=== PATIENT | female | born 1940 | race Caucasian/White ===

== ENCOUNTER 2020-04-28 02:24 | Outpatient (CLI) | payer MEDICARE, SELFPAY ==
[2020-04-28 18:24] LABS: SARS-CoV-2 RNA PCR Negative
== END 2020-04-28 02:25 | disposition home or self-care (01) ==
LOC: ANHCOVIDDT 02:24
PROVIDERS: PCP Nurse Practitioner Adult Health; Visit Provider Internal Medicine Gastroenterology
DX: Z01.812 Encounter for preprocedural laboratory examination (principal); Z20.828 Contact with and (suspected) exposure to other viral communicable diseases
CPT/HCPCS: 87635; C9803; U0003

== ENCOUNTER 2020-04-30 00:27 | Day surgery (SDC) | payer MEDICARE, SELFPAY ==
[2020-04-23 11:12] VITALS: BMI 22.9
[2020-04-30 08:18] VITALS: BP 169/91; PULSE 77; RESP 18; TEMP 36.7; O2SAT 98
[2020-04-30] MEDS: LACTATED RINGERS 1,000 ML 150 ML IV CONT (08:37)
--- NOTE | 2020-04-30 09:07 | PM.HPGS ---
History of Present Illness History of Present Illness Consent: Risks, benefits, and alternatives have been discussed and questions answered. Patient agrees to proceed with procedure. Chief complaint: Dysphagia Narrative: Rosanne Hilario is a 79 year old female with dysphagia for solid food for the past 2 months [facility] Social History Social History Smoking status: Never smoker Alcohol intake: current Drinks per week: 1 Alcohol use details: BEER Substance use: never Substance use type: does not use Living arrangements: with family Spiritual care concerns: No Meds Home Medications and Allergies Home Medications Medication Instructions Recorded Confirmed Type ascorbic acid (vitamin C) [Vitamin 500 mg PO DAILY 04/23/20 04/23/20 History C] aspirin [Adult Low Dose Aspirin] 81 mg PO DAILY 04/23/20 04/23/20 History benazepril 40 mg PO DAILY 04/23/20 04/23/20 History calcium carbonate [Calcium 600] 600 mg PO DAILY 04/23/20 04/23/20 History clonazepam 0.5 mg PO DAILY 04/23/20 04/23/20 History clopidogrel 75 mg PO DAILY 04/23/20 04/23/20 History escitalopram oxalate 10 mg PO DAILY 04/23/20 04/23/20 History ferrous sulfate 140 mg PO TID 04/23/20 04/23/20 History pravastatin 20 mg PO DAILY 04/23/20 04/23/20 History Allergies Allergy/AdvReac Type Severity Reaction Status Date / Time No Known Allergies Allergy Verified 03/14/16 11:13 Vital Signs Vital Signs - 24 hr 04/30/20 08:18 Temperature 36.7 C Pulse Rate 77 Respiratory Rate 18 Blood Pressure 169/91 H Pulse Oximetry 98 Exam Const: General: alert Orientation/consciousness: patient oriented x3 Resp: Auscultation: clear to auscultation bilaterally Cardio: Rhythm: regular rhythm GI: GI Palp: Yes Soft to palpation and No Tenderness to palpation present (GI) Neuro: General: patient oriented x3 Assessment and Plan Assessment and plan (1) Dysphagia: Code(s): R13.10 - Dysphagia, unspecified Status: Acute Assessment and Plan: EGD with possible biopsy or dilatation or cautery.
--- NOTE | 2020-04-30 09:20 | WPDANESEPPF ---
Anes - Initial Pre Proc Eval Procedure: Operation Date: 04/30/20 09:30 Proposed Procedures p Esophagogastroduodenoscopy - Alberto Turpin MD Date/Time: 04/30/20 09:20 Surgeon: Alberto Turpin MD Pre Op Diagnosis: Dysphagia Patient Data Age: 79 Gender: F Height: 5 ft 2 in Weight: 56.3 kg Last Vital Signs Temp 98.0 F 04/30/20 08:18 Pulse 77 04/30/20 08:18 Resp 18 04/30/20 08:18 BP 169/91 H 04/30/20 08:18 Pulse Ox 98 04/30/20 08:18 Allergies Allergy/AdvReac Type Severity Reaction Status Date / Time No Known Allergies Allergy Verified 03/14/16 11:13 Home Medications Medication Instructions Recorded Confirmed Type ascorbic acid (vitamin C) [Vitamin 500 mg PO DAILY 04/23/20 04/23/20 History C] aspirin [Adult Low Dose Aspirin] 81 mg PO DAILY 04/23/20 04/23/20 History benazepril 40 mg PO DAILY 04/23/20 04/23/20 History calcium carbonate [Calcium 600] 600 mg PO DAILY 04/23/20 04/23/20 History clonazepam 0.5 mg PO DAILY 04/23/20 04/23/20 History clopidogrel 75 mg PO DAILY 04/23/20 04/23/20 History escitalopram oxalate 10 mg PO DAILY 04/23/20 04/23/20 History ferrous sulfate 140 mg PO TID 04/23/20 04/23/20 History pravastatin 20 mg PO DAILY 04/23/20 04/23/20 History Patient hx anesthesia problems: none Family hx anesthesia problems: none [facility] Past Medical History Medical History (Updated 04/30/20 @ 09:19 by Alex Stout MD) Anxiety Hyperlipidemia Hypertension Social History Social History Smoking status: Never smoker Alcohol intake: current Drinks per week: 1 Alcohol use details: BEER Substance use: never Substance use type: does not use Living arrangements: with family Spiritual care concerns: No Anes - Eval Final PreProcedure Day of Procedure 04/30/20 09:20 Patient weight: normal Heart: regular rate and rhythm Lungs: clear to auscultation Airway: Mallampati scale class II Neurological: alert and oriented Last oral intake: >/= 8 hours ASA classification: III Emergent: no Anesthetic plan: proceed Anesthesia type and monitoring: general GIVS and standard monitoring Informed Consent: The patient's anesthetic plan and its attendant risks and benefits were discussed with the patient/family/POA. Questions were solicited and answers provided to the satisfaction of the patient/family/POA.
[2020-04-30 10:13] VITALS: BP 139/77; PULSE 66; RESP 26; O2SAT 98
[2020-04-30 10:23] VITALS: BP 120/74; PULSE 62; RESP 17; O2SAT 100
[2020-04-30 10:33] VITALS: BP 126/76; PULSE 60; RESP 18; O2SAT 100
== END 2020-04-30 10:52 | disposition home or self-care (01) ==
PROVIDERS: PCP Nurse Practitioner Adult Health; Visit Provider Internal Medicine Gastroenterology
PROC: 0DJ08ZZ Inspection of Upper Intestinal Tract, Via Natural or Artificial Opening Endoscopic (ICD-10-PCS; CPT 43235; principal; 2020-04-30 09:30)
DX: K22.2 Esophageal obstruction (principal); I10 Essential (primary) hypertension; E78.5 Hyperlipidemia, unspecified; F41.9 Anxiety disorder, unspecified; Z79.02 Long term (current) use of antithrombotics/antiplatelets; Z79.82 Long term (current) use of aspirin
CPT/HCPCS: 43249; 88305; C1726; J2001; J2704; J7120

== ENCOUNTER 2021-08-08 09:21 | Outpatient (CLI) | payer MEDICARE, SELFPAY ==
--- NOTE | ~2021-08-08 | MM_ITS ---
EXAMINATION: MM screening [facility] BI w emiliana HISTORY: Screening TECHNIQUE: Craniocaudal and mediolateral oblique 3-D tomosynthesis images were obtained and synthetic 2-D images were generated. CAD analysis was submitted and interpreted. COMPARISON: Comparison to multiple prior studies sequentially, with oldest reviewed study dated 10/07. BREAST PARENCHYMAL COMPOSITION: Breast composed of scattered areas of fibroglandular density. FINDINGS: There is no evidence of suspicious mass, calcification, or architectural distortion to sugg est malignancy in either breast. There has been no suspicious interval change. IMPRESSION: 1. No mammographic evidence of malignancy. 2. Recommend routine screening mammography in one year. BI-RADS Category 1: Negative Reviewed, dictated and finalized at location A. C THERAPY SPECIALIST
== END 2021-08-08 09:22 | disposition home or self-care (01) ==
LOC: ANHIMG 09:23
PROVIDERS: PCP Nurse Practitioner Adult Health; Visit Provider Nurse Practitioner Adult Health
DX: Z12.31 Encounter for screening mammogram for malignant neoplasm of breast (principal)
CPT/HCPCS: 77063; 77067

== ENCOUNTER 2022-02-21 13:03 | Emergency (ER) | payer MEDICARE, SELFPAY ==
--- NOTE | ~2022-02-21 | CT_ITS ---
EXAMINATION: CT cervical spine w con DATE: 02/21/2022 14:37 INDICATION: neck pain TECHNIQUE: Computed tomography (CT) of the cervical spine was performed without intravenous contrast. Automated exposure control and iterative reconstruction technique were employed. The dose-length pro duct was 123.32 mGy-cm. COMPARISON: None FINDINGS: Vertebral Body Alignment: Multilevel trace 2 mm anterolistheses of C4 on 5, C5 on 6, and C6 on 7, lik holly on a degenerative basis. Craniocervical and atlantoaxial alignment: Moderate degenerative change. Alignment intact. Osseous structures/fracture: No evidence of a lytic or blastic process in the visualized spine. No e vidence of acute fracture. Cervical soft tissues: The paraspinal soft tissues planes are maintained. Degenerative changes: Multilevel mild degenerative disc disease. Multilevel moderate and severe facet arthropathy. No severe central canal or neural foraminal narrowing. IMPRESSION: No acute fracture or traumatic malalignment in the cervical spine. Reviewed, dictated and finalized at location K.
[2022-02-21 13:13] VITALS: BP 182/93; PULSE 96; RESP 17; TEMP 36.9; O2SAT 99
[2022-02-21] MEDS: diazePAM INJ (*CRX) 10 MG/2 ML SYRINGE 2 MG IV PUSH (13:53)
[2022-02-21] MEDS: KETOROLAC 15 MG/ML VIAL (*BKC) IV PUSH (13:53)
[2022-02-21 13:54] LABS: Basophils Absolute Auto 0.1 K/mm3 (0.0-0.1); Basophils Percent Auto 0.6 % (0.2-1.2); Eosinophils Absolute Auto 0.2 K/mm3 (0-0.3); Eosinophils Percent Auto 2.6 % (0-4.4); Hematocrit 39.9 % (37.0-47.0); Hemoglobin 12.6 g/dL (12.0-15.0); Immature Granulocyte Absolute 0.06 K/mm3 (0.00-0.031); Immature Granulocyte Percent A 0.7 % (0-0.5); Lymphocytes Absolute Auto 1.28 K/mm3 (0.9-3.2); Lymphocytes Percent Auto 15.3 % (18.3-44.2); Mean Corpuscular HGB Conc 31.6 g/dl (32-36); Mean Corpuscular Hemoglobin 27.3 pg (26-34); Mean Corpuscular Volume 86.6 fl (80-100); Mean Platelet Volume 10.8 fl (7.4-10.4); Monocytes Absolute Auto 0.8 K/mm3 (0.1-0.6); Monocytes Percent Auto 9.2 % (2.6-8.5); Neutrophils Percent Auto 71.6 % (45.5-73.1); Platelet Count Result 239 k/mm3 (150-375); Red Blood Count 4.61 M/mm3 (4.2-5.4); Red Cell Distribution Width 14.4 % (11.5-14.5); White Blood Count 8.4 K/mm3 (4.5-10.0)
[2022-02-21 14:10] LABS: Alanine Aminotransferase 15 U/L (6-35); Albumin Level 4.2 g/dL (3.5-5.1); Alkaline Phosphatase 68 U/L (38-126); Anion Gap 12 mmol/L (8-16); Aspartate Amino Transferase 29 U/L (14-36); Bilirubin,Total 0.4 mg/dL (0.2-1.3); Blood Urea Nitrogen 14 mg/dL (7-17); CRP 2.2 mg/dL (<1.0); Calcium 9.2 mg/dL (8.4-10.2); Carbon Dioxide 28 mmol/L (22-30); Chloride 98 mmol/L (98-107); Estimated CRCL calculation 35 ml/min; Estimated Glomerular Filt Rate 60; Glucose 108 mg/dL (65-110); Potassium 4.3 mmol/L (3.4-5.0); Sodium 138 mmol/L (137-145)
[2022-02-21 16:32] LABS: Erythrocyte Sedimentation Rate 20 mm/hr (0-20)
[2022-02-21 17:00] LABS: SARS-CoV-2 RNA PCR Negative
--- NOTE | 2022-02-21 17:27 | ED.GENADULT ---
HPI - General Adult General Chief complaint: Neck Pain/Injury Stated complaint: neck pain Time Seen by Provider: 02/21/22 13:23 History of Present Illness HPI narrative: Patient is a 81-year-old female who presents to the ER with cervical neck pain. Gradually worsening over the last 2 days. Limits flexion and lateral rotation. No numbness or tingling in the arms or legs. No radicular shooting pains. She reports she has had subjective fever and chills speech the last 2 nights. No other body aches. No IV drug abuse. No history of infectious arthritis. She has no recent instrumentation or surgeries. Patient reports she has had similar neck pain in the past was unsure what it was related to. No recent trauma. Related Data Home Medications Medication Instructions Recorded Confirmed ascorbic acid (vitamin C) 500 mg 500 mg PO DAILY 04/23/20 04/23/20 tablet (Vitamin C) aspirin 81 mg tablet,delayed 81 mg PO DAILY 04/23/20 04/23/20 release (Adult Low Dose Aspirin) benazepril 40 mg tablet 40 mg PO DAILY 04/23/20 04/23/20 calcium carbonate 600 mg calcium 600 mg PO DAILY 04/23/20 04/23/20 (1,500 mg) tablet (Calcium) clonazepam 0.5 mg tablet 0.5 mg PO DAILY 04/23/20 04/23/20 clopidogrel 75 mg tablet 75 mg PO DAILY 04/23/20 04/23/20 escitalopram oxalate 10 mg tablet 10 mg PO DAILY 04/23/20 04/23/20 ferrous sulfate 140 mg (45 mg 140 mg PO TID 04/23/20 04/23/20 iron) tablet,extended release pravastatin 20 mg tablet 20 mg PO DAILY 04/23/20 04/23/20 Allergies Allergy/AdvReac Type Severity Reaction Status Date / Time No Known Allergies Allergy Verified 02/21/22 13:23 Review of Systems Review of Systems: All systems reviewed & are unremarkable except as noted in HPI and below Constitutional: Constitutional: Reports chills, Reports fatigue and Reports fever(s) ENT: Denies nasal congestion and Denies sore throat Cardiovascular: Cardiovascular: Denies chest pain, Denies rapid heart rate and Denies radiating jaw, neck or arm pain Respiratory: Respiratory: Denies cough and Denies dyspnea Gastrointestinal: Gastrointestinal: Denies abdominal pain, Denies diarrhea, Denies nausea and Denies vomiting Genitourinary: Genitourinary: Denies nocturia and Denies dysuria Musculoskeletal: Musculoskeletal: Denies back pain, Denies myalgias, Denies arthralgias, Denies joint swelling and Reports muscle cramps Comments: Neck pain Neurologic: Denies headache(s), Denies focal weakness and Denies numbness PMFSH Past Medical History Medical History (Updated 02/21/22 @ 17:29 by Ryley Sullivan MD) Anxiety Hyperlipidemia Hypertension Surgical History Surgical History (Updated 02/21/22 @ 19:11 by Ryley Sullivan MD) No pertinent past surgical history Social History Social History Smoking status: Never smoker Alcohol intake: current Drinks per week: 1 Alcohol use details: BEER Substance use: never Substance use type: does not use Spiritual care concerns: No Exam Narrative: GENERAL: Well-appearing, well-nourished, and in no acute distress. HEAD: Normocephalic, atraumatic. ENT: Mucous membranes moist. Neck: No reproducible midline tenderness of cervical spine. Mild discomfort in the paraspinal musculature bilaterally. Limited flexion neck and lateral rotation both to the right and left. CHEST: Clear to auscultation. No respiratory distress. HEART: Regular rate and rhythm. Normal peripheral pulses. EXTREMITIES: Normal range of motion. No edema. SKIN: Warm, dry, no rash. NEURO: Alert and oriented x3. PSYCH: Normal mood and affect. Course Course Emergency Course: Pain significantly improved with Toradol and Valium and patient has increased range of motion. No focal numbness or weakness or radicular symptoms. Patient is afebrile here and inflammatory markers are unremarkable. CRP just slightly elevated 2.2 which is nonspecific and still fairl
[2022-02-21 17:37] VITALS: BP 150/85; PULSE 77; RESP 18; O2SAT 99
== END 2022-02-21 17:38 | disposition home or self-care (01) ==
PROVIDERS: Emergency Provider Emergency Medicine; PCP Nurse Practitioner Adult Health
DX: M54.2 Cervicalgia (principal); R25.2 Cramp and spasm; Z20.822 Contact with and (suspected) exposure to COVID-19; E78.5 Hyperlipidemia, unspecified; I10 Essential (primary) hypertension; F41.9 Anxiety disorder, unspecified; Z79.82 Long term (current) use of aspirin
CPT/HCPCS: 36415; 72126; 80053; 85025; 85652; 86140; 96374; 96375; 99284; C9803; J1885; J3360; Q9967; U0003; U0005

== ENCOUNTER 2023-01-23 09:14 | Outpatient (CLI) | payer MEDICARE, SELFPAY ==
--- NOTE | ~2023-01-23 | MM_ITS ---
EXAMINATION: MM screening [facility] BI w emiliana HISTORY: Screening mammogram TECHNIQUE: Craniocaudal and mediolateral oblique 3-D tomosynthesis images were obtained and synthetic 2-D images were generated. CAD analysis was submitted and interpreted. COMPARISON: Serial mammogram examinations dating back to November 19, 2017 BREAST PARENCHYMAL COMPOSITION: There are scattered areas of fibroglandular density. FINDINGS: There is no evidence of suspicious mass, calcification, or architectural distortion to sugg est malignancy in either breast. There has been no suspicious interval change. IMPRESSION: 1. No mammographic evidence of malignancy. 2. Recommend routine screening mammography in one year. BI-RADS Category 1: Negative Reviewed, dictated and finalized at location A.
== END 2023-01-23 09:15 | disposition home or self-care (01) ==
PROVIDERS: PCP Nurse Practitioner Adult Health; Visit Provider Family Medicine
DX: Z12.31 Encounter for screening mammogram for malignant neoplasm of breast (principal)
CPT/HCPCS: 77063; 77067

== ENCOUNTER 2023-05-11 10:20 | Outpatient (CLI) | payer MEDICARE, SELFPAY ==
--- NOTE | ~2023-05-11 | XR_ITS ---
EXAMINATION: XR barium swallow modified DATE: 05/11/2023 11:00 INDICATION: Dysphagia, unspecified. TECHNIQUE: The patient was given barium-containing material of multiple consistencies to swallow by t smith speech pathologist while I performed fluoroscopy. Fluoroscopy exposure time was 1.0 minutes. The n umber of fluoroscopy images saved to the PACS was 1. Dose-area product was 0.595 Gy-cm^2. FINDINGS: There is trace laryngeal penetration with thin liquids. No aspiration. IMPRESSION: 1. Trace linear penetration with thin liquids. No aspiration. 2. Please refer to the speech therapy report for recommendations. Reviewed, dictated and finalized at location A.
--- NOTE | 2023-05-11 13:13 | REHSTMBS ---
Assessment and note entered by Sherrie Zavala, VP [employer] Modified Barium Swallow Evaluation Feeding Type Recommended Oral Food Consistency Regular, Level 7 Liquid Consistency Thin (0) ST Clinical Summary MODIFIED BARIUM SWALLOW STUDY The patient was seen for a Modified Barium Swallow study at the request of her physician. She reports a history of having EGD's in the past and being diagnosed with a Schatzki's Ring as well. Patient reports that dry foods such as bread can randomly, occasionally hang up in her mid-chest area however she stated that on the last occasion, it was lasagna in pasta sauce. Patient reports she has had several EGD procedures which have helped to reduce symptoms but that the symptoms always return. Additionally, she stated she has been placed on Pantoprazole. Patient did eventually state that she inconsistently, occasionally coughs when consuming food/liquid. Today the patient was viewed in the lateral position to the level of C5/C6. Patient was presented with thin liquid contrast medium per cup and per straw, pudding mixed with semi-solild contrast medium, and then fruit pieces and aide cracker pieces, both coated with the semi-solid mixture. Patient exhibited adequate mastication and no evidence of penetration/aspiration except for one occasion of trace penetration into the upper laryngeal vestibule on the very first sip of uncontrolled thin liquid, most of which cleared with the swallow, and the rest cleared with subsequent swallows. She was presented with the other consistencies, then additional thin liquid per straw with a return to thin liquid per cup and no additional penetration into the airway was noted. Results indicate there was only one instance of trace penetration, not replicated. This places patient's swallowing skills within normal limits. No further Speech Therapy is indicated, however should she complain of frequent coughing during meals, she may be seen for additional Speech Therapy for instruction of safe swallowing guidelines and for strengthening exercises. Patient is referred back to her physician for
== END 2023-05-11 10:21 | disposition home or self-care (01) ==
LOC: ANHIMG 10:23
PROVIDERS: PCP Family Medicine; Visit Provider Internal Medicine Gastroenterology
DX: R13.10 Dysphagia, unspecified (principal)
CPT/HCPCS: 92611

== ENCOUNTER 2023-05-19 17:37 | Emergency (ER) | payer MEDICARE, SELFPAY ==
--- NOTE | ~2023-05-19 | CT_ITS ---
EXAMINATION: CT cervical spine wo con DATE: 05/19/2023 18:41 INDICATION: neck pain TECHNIQUE: Computed tomography (CT) of the cervical spine was performed without intravenous contrast. Automated exposure control and iterative reconstruction technique were employed. The dose-length pro duct was 104.77 mGy-cm. COMPARISON: None. FINDINGS: Vertebral Body Alignment: Intact. Multilevel grade 1 anterolistheses, presumably on a degenerative ba sis. Craniocervical and atlantoaxial alignment: Moderate degenerative change. Alignment intact. Osseous structures/fracture: No evidence of a lytic or blastic process in the visualized spine. No e vidence of acute fracture. Cervical soft tissues: The paraspinal soft tissues planes are maintained. Degenerative changes: Multilevel mild and moderate degenerative disc disease. Multilevel moderate fac et arthropathy. No severe central canal or neural foraminal narrowing. IMPRESSION: No acute fracture or traumatic malalignment in the cervical spine. Reviewed, dictated and finalized at location K.
[2023-05-19 17:40] VITALS: BP 177/97; PULSE 100; RESP 18; TEMP 36.8; O2SAT 100
--- NOTE | 2023-05-19 17:58 | ED.GENADULT ---
HPI - General Adult General Chief complaint: Neck Pain/Injury Stated complaint: neck pain Time Seen by Provider: 05/19/23 17:58 History of Present Illness HPI narrative: Patient is an 82-year-old female here with multiple complaints, primarily neck pain. She states that the neck pain has been present for 3-4 days. She notes it is worse with movement and has difficulty lying down to sleep at night due to the pain and stiffness. She denies any trauma. She does note that she had this last year and was seen in the emergency department for this. 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 She was discharged on muscle relaxers which seemed to help her pain at that time. She she believes that she has had some low-grade fevers but is not her temperature at home. She denies any cough, congestion. Additionally she notes that she is currently being treated for urinary tract infection. She is currently on ciprofloxacin prescribed by her primary care doctor. Prior to diagnosis she was having increased urinary frequency, did a home urine test which was positive and then had a formal test done by her primary care doctor. She states that the urinary symptoms have subsided since initiating antibiotics. Finally she is complaining of some bilateral hip pain. She notes that she bowls most weeks and this seems to come and go. No new trauma. She has been able to ambulate. She denies any bowel or bladder incontinence. She denies any saddle anesthesia. Related Data Home Medications Medication Instructions Recorded Confirmed aspirin 81 mg tablet,delayed 81 mg PO DAILY 04/23/20 11/28/22 release (Adult Low Dose Aspirin) benazepril 40 mg tablet 40 mg PO DAILY 04/23/20 11/28/22 calcium carbonate 600 mg calcium 600 mg PO DAILY 04/23/20 11/28/22 (1,500 mg) tablet (Calcium) clonazepam 0.5 mg tablet 0.5 mg PO DAILY 04/23/20 11/28/22 clopidogrel 75 mg tablet 75 mg PO DAILY 04/23/20 11/28/22 escitalopram oxalate 10 mg tablet 10 mg PO DAILY 04/23/20 11/28/22 ferrous sulfate 140 mg (45 mg 140 mg PO TID 04/23/20 11/28/22 iron) tablet,extended release pravastatin 20 mg tablet 20 mg PO DAILY 04/23/20 11/28/22 Allergies Allergy/AdvReac Type Severity Reaction Status Date / Time No Known Allergies Allergy Verified 05/19/23 17:38 Review of Systems Review of Systems: All systems reviewed & are unremarkable except as noted in HPI and below PMFSH Past Medical History Medical History Anxiety Hyperlipidemia Hypertension Surgical History Surgical History No pertinent past surgical history Social History Social History Smoking status: Never smoker Alcohol intake: current Drinks per week: 1 Alcohol use details: BEER Substance use: never Substance use type: does not use Living arrangements: with family Spiritual care concerns: No Exam Narrative: GENERAL: Well-appearing, well-nourished, and in no acute distress. HEAD: Normocephalic, atraumatic. EYES: PERRLA and EOMI. ENT: Nares clear. Mucous membranes moist. NECK: Supple. No midline tenderness. She has bilateral paraspinal tenderness which extends over the trapezius. She has decreased ROM due to pain. CHEST: Clear to auscultation. No respiratory distress. HEART: Regular rate and rhythm. Normal peripheral pulses. ABDOMEN: Soft, nontender, nondistended. EXTREMITIES: Normal range of motion. No edema. SKIN: Warm, dry, no rash. NEURO: No focal deficits. Alert and oriented x3. Normal strength in bilateral upper lower extremities, normal sensation in bilateral upper and lower extremities PSYCH: Normal mood and affect. Course Course Emergency Course: Chart review performed. Patient here with multiple complaints per triage note. Triage vitals show HTN, otherwise gr
[2023-05-19 18:24] LABS: Basophils Absolute Auto 0.1 K/mm3 (0.0-0.1); Basophils Percent Auto 0.8 % (0.2-1.2); Eosinophils Absolute Auto 0.3 K/mm3 (0-0.3); Hemoglobin 13.9 g/dL (12.0-15.0); Immature Granulocyte Absolute 0.03 K/mm3 (0.00-0.031); Immature Granulocyte Percent A 0.4 % (0-0.5); Lymphocytes Absolute Auto 1.78 K/mm3 (0.9-3.2); Lymphocytes Percent Auto 22.4 % (18.3-44.2); Mean Corpuscular HGB Conc 31.6 g/dl (32-36); Mean Corpuscular Hemoglobin 29.8 pg (26-34); Mean Corpuscular Volume 94.2 fl (80-100); Mean Platelet Volume 10.5 fl (7.4-10.4); Monocytes Absolute Auto 0.6 K/mm3 (0.1-0.6); Monocytes Percent Auto 7.3 % (2.6-8.5); Neutrophils Absolute Auto 5.2 K/mm3 (1.3-6.7); Neutrophils Percent Auto 65.1 % (45.5-73.1); Platelet Count Result 211 k/mm3 (150-375); Red Blood Count 4.67 M/mm3 (4.2-5.4); Red Cell Distribution Width 13.1 % (11.5-14.5)
[2023-05-19 18:40] LABS: Appearance Urine Clear (Clear); Bacteria Urine None Seen /hpf; Bilirubin Urine Negative (Negative); Blood Urine Trace (Negative); Color Urine Yellow (Yellow); Glucose Urine UA Negative (Negative); Ketones Urine Negative (Negative); Leukocyte Esterase Ur Negative LEU/UL (Negative); Nitrate Urine Negative (Negative); Non Pathogenic Casts 0-2; Protein Urine Negative (Negative); Specific Grav Ur 1.014 (1.001-1.035); Squamous Epithelial Cell Urine None seen /hpf (Few); WBC Urine 0-5 /hpf
[2023-05-19 18:41] LABS: Add Urine Microscopic? YES
[2023-05-19 18:41] LABS: Alanine Aminotransferase 12 U/L (6-35); Albumin Level 4.3 g/dL (3.5-5.1); Alkaline Phosphatase 81 U/L (38-126); Anion Gap 7 mmol/L (8-16); Aspartate Amino Transferase 23 U/L (14-36); Bilirubin,Total 0.5 mg/dL (0.2-1.3); Blood Urea Nitrogen 20 mg/dL (7-17); CRP 4.8 mg/dL (<1.0); Calcium 9.2 mg/dL (8.4-10.2); Carbon Dioxide 28 mmol/L (22-30); Chloride 104 mmol/L (98-107); Estimated CRCL calculation 31 ml/min; Estimated Glomerular Filt Rate 53; Glucose 115 mg/dL (65-110); Potassium 3.9 mmol/L (3.4-5.0); Sodium 139 mmol/L (137-145)
[2023-05-19] MEDS: diazePAM (*CRX) 5 MG TABLET PO (18:49)
[2023-05-19] MEDS: KETOROLAC 30 MG/ML VIAL (*BKC) 15 MG IM (18:49)
[2023-05-19 18:58] LABS: Erythrocyte Sedimentation Rate 43 mm/hr (0-20)
--- NOTE | 2023-05-19 19:23 | PC.NURSE ---
THis RN took patient report from YESSI Small. THis RN assumed care of patient.
== END 2023-05-19 20:41 | disposition home or self-care (01) ==
PROVIDERS: Emergency Provider Student in an Organized Health Care Education/Training Program; PCP Family Medicine
DX: M54.2 Cervicalgia (principal); E78.5 Hyperlipidemia, unspecified; I10 Essential (primary) hypertension; F41.9 Anxiety disorder, unspecified; Z79.82 Long term (current) use of aspirin
CPT/HCPCS: 36415; 72125; 80053; 81001; 85025; 85652; 86140; 96372; 99284; A9270; J1885

== ENCOUNTER 2023-11-01 14:39 | Outpatient (CLI) | payer MEDICARE, SELFPAY ==
[2023-11-01 19:17] LABS: Anion Gap 4 mmol/L (4-12); Blood Urea Nitrogen 18 mg/dL (7-17); Calcium 9.7 mg/dL (8.4-10.2); Carbon Dioxide 30 mmol/L (22-30); Chloride 105 mmol/L (98-107); Cholesterol 171 mg/dL (0-200); Estimated Glomerular Filt Rate 48; Glucose 114 mg/dL (65-110); HDL Direct 56 mg/dL; Potassium 3.7 mmol/L (3.4-5.0); Sodium 139 mmol/L (137-145); Triglycerides 153 mg/dL (<150)
[2023-11-01 19:29] LABS: LDL Cholesterol Direct 79 mg/dL
[2023-11-01 20:24] LABS: Vitamin D 25 Hydroxy 52.4 ng/mL
== END 2023-11-01 14:40 | disposition home or self-care (01) ==
LOC: ANHBWCLAB 14:42
PROVIDERS: PCP Nurse Practitioner Adult Health; Visit Provider Nurse Practitioner Adult Health
DX: E78.5 Hyperlipidemia, unspecified (principal); E55.9 Vitamin D deficiency, unspecified
CPT/HCPCS: 36415; 80048; 80061; 82306

== ENCOUNTER 2024-01-10 12:19 | Outpatient (CLI) | payer MEDICARE, SELFPAY ==
[2024-01-10 18:47] LABS: Hematocrit 41.7 % (37.0-47.0); Hemoglobin 12.7 g/dL (12.0-15.0); Mean Corpuscular HGB Conc 30.5 g/dl (32-36); Mean Corpuscular Hemoglobin 29.7 pg (26-34); Mean Corpuscular Volume 97.4 fl (80-100); Mean Platelet Volume 10.3 fl (7.4-10.4); Platelet Count Result 374 k/mm3 (150-375); Red Blood Count 4.28 M/mm3 (4.2-5.4); Red Cell Distribution Width 15.9 % (11.5-14.5); White Blood Count 8.9 K/mm3 (4.5-10.0)
[2024-01-10 19:16] LABS: Alanine Aminotransferase 31 U/L (6-35); Albumin Level 4.2 g/dL (3.5-5.1); Alkaline Phosphatase 117 U/L (38-126); Anion Gap 6 mmol/L (4-12); Aspartate Amino Transferase 86 U/L (14-36); Blood Urea Nitrogen 20 mg/dL (7-17); Calcium 9.4 mg/dL (8.4-10.2); Carbon Dioxide 29 mmol/L (22-30); Chloride 100 mmol/L (98-107); Estimated Glomerular Filt Rate 53; Glucose 85 mg/dL (65-110); Potassium 4.4 mmol/L (3.4-5.0); Sodium 135 mmol/L (137-145)
[2024-01-10 19:46] LABS: Appearance Urine Cloudy (Clear); Bacteria Urine None Seen /hpf; Bilirubin Urine 1+ (Negative); Blood Urine Negative (Negative); Calcium Oxalate Crystals Urine Present /hpf; Color Urine Dark Yellow (Yellow); Glucose Urine UA Negative (Negative); Ketones Urine Negative (Negative); Leukocyte Esterase Ur Trace LEU/UL (Negative); Need Manual Microscopic Reviewed; Nitrate Urine Negative (Negative); Non Pathogenic Casts 0-2; Protein Urine Trace mg/dL (Negative); Specific Grav Ur 1.022 (1.001-1.035); Squamous Epithelial Cell Urine None Seen /hpf (Few); WBC Urine 0-5 /hpf (0-3); pH Urine 6.5 (5.0-9.0)
[2024-01-10 19:51] LABS: Add Urine Microscopic? YES
== END 2024-01-10 12:20 | disposition home or self-care (01) ==
PROVIDERS: PCP Nurse Practitioner Adult Health; Visit Provider Nurse Practitioner Adult Health
DX: R35.0 Frequency of micturition (principal); I10 Essential (primary) hypertension
CPT/HCPCS: 36415; 80053; 81001; 85027; 87086; 87088

== ENCOUNTER 2024-01-15 13:04 | Outpatient (NON) | payer MEDICARE, SELFPAY ==
[2024-01-15 19:24] LABS: Appearance Urine Clear (Clear); Bacteria Urine None Seen /hpf; Bilirubin Urine 1+ (Negative); Blood Urine Negative (Negative); Color Urine Dark Yellow (Yellow); Glucose Urine UA Negative (Negative); Ketones Urine Negative (Negative); Leukocyte Esterase Ur Trace LEU/UL (Negative); Nitrate Urine Negative (Negative); Protein Urine Trace mg/dL (Negative); RBC Urine 0-2 /hpf (0-2); Specific Grav Ur 1.026 (1.001-1.035); Squamous Epithelial Cell Urine Occasional /hpf (Few); WBC Urine 0-5 /hpf (0-3); pH Urine 6.5 (5.0-9.0)
[2024-01-15 19:27] LABS: Add Urine Microscopic? YES
== END 2024-01-15 13:05 | disposition home or self-care (01) ==
LOC: ANHBWCLAB 13:07
PROVIDERS: PCP Nurse Practitioner Adult Health; Visit Provider Nurse Practitioner Adult Health
DX: R35.0 Frequency of micturition (principal)
CPT/HCPCS: 81001

== ENCOUNTER 2024-03-13 09:43 | Outpatient (CLI) | payer MEDICARE, SELFPAY ==
--- NOTE | ~2024-03-13 | MM_ITS ---
EXAMINATION: MM screening [facility] BI w emiliana HISTORY: Screening TECHNIQUE: Craniocaudal and mediolateral oblique 3-D tomosynthesis images were obtained and synthetic 2-D images were generated. CAD analysis was submitted and interpreted. COMPARISON: Comparison to multiple prior studies sequentially, with oldest reviewed study dated 06/30. BREAST PARENCHYMAL COMPOSITION: Not dense: There are scattered areas of fibroglandular density. FINDINGS: There is no evidence of suspicious mass, calcification, or architectural distortion to sugg est malignancy in either breast. There has been no suspicious interval change. IMPRESSION: 1. No mammographic evidence of malignancy. 2. Recommend routine screening mammography in one year. BI-RADS Category 1: Negative Reviewed, dictated and finalized at location B.
== END 2024-03-13 09:44 | disposition home or self-care (01) ==
LOC: ANHIMG 09:45
PROVIDERS: PCP Nurse Practitioner Adult Health; Visit Provider Nurse Practitioner Adult Health
DX: Z12.31 Encounter for screening mammogram for malignant neoplasm of breast (principal)
CPT/HCPCS: 77063; 77067

== ENCOUNTER 2024-03-13 10:08 | Outpatient (CLI) | payer MEDICARE, SELFPAY ==
[2024-03-13 10:26] LABS: Basophils Absolute Auto 0.1 K/mm3 (0.0-0.1); Basophils Percent Auto 0.8 % (0.2-1.2); Eosinophils Absolute Auto 0.4 K/mm3 (0-0.3); Eosinophils Percent Auto 7.4 % (0-4.4); Hematocrit 42.9 % (37.0-47.0); Hemoglobin 13.7 g/dL (12.0-15.0); Immature Granulocyte Absolute 0.02 K/mm3 (0.00-0.031); Immature Granulocyte Percent A 0.3 % (0-0.5); Lymphocytes Absolute Auto 1.68 K/mm3 (0.9-3.2); Lymphocytes Percent Auto 28.4 % (18.3-44.2); Mean Corpuscular HGB Conc 31.9 g/dl (32-36); Mean Corpuscular Hemoglobin 29.5 pg (26-34); Mean Corpuscular Volume 92.3 fl (80-100); Mean Platelet Volume 9.7 fl (7.4-10.4); Monocytes Absolute Auto 0.5 K/mm3 (0.1-0.6); Neutrophils Absolute Auto 3.3 K/mm3 (1.3-6.7); Neutrophils Percent Auto 55.1 % (45.5-73.1); Platelet Count Result 197 k/mm3 (150-375); Red Blood Count 4.65 M/mm3 (4.2-5.4); Red Cell Distribution Width 14.6 % (11.5-14.5); White Blood Count 5.9 K/mm3 (4.5-10.0)
[2024-03-13 11:07] LABS: Anion Gap 7 mmol/L (4-12); Blood Urea Nitrogen 21 mg/dL (7-17); Carbon Dioxide 31 mmol/L (22-30); Chloride 100 mmol/L (98-107); Estimated Glomerular Filt Rate 53; Glucose 89 mg/dL (65-110); Potassium 4.4 mmol/L (3.4-5.0); Sodium 138 mmol/L (137-145)
[2024-03-13 17:22] LABS: Iron 86 ug/dL (37-170)
[2024-03-13 17:32] LABS: Percent Iron Saturation 36 % (20-50)
== END 2024-03-13 10:09 | disposition home or self-care (01) ==
PROVIDERS: Nurse Practitioner Family; PCP Nurse Practitioner Adult Health; Visit Provider Internal Medicine Hematology & Oncology
DX: D50.9 Iron deficiency anemia, unspecified (principal)
CPT/HCPCS: 36415; 77063; 77067; 80048; 82607; 82728; 82746; 83540; 83550; 85025

== ENCOUNTER 2024-09-17 13:25 | Outpatient (CLI) | payer MEDICARE, SELFPAY ==
--- OUTSIDE RECORDS SUMMARY | 2024-09-17 13:30 | XMS_ITS | Clinical Summary ---
Author Organization [facility] Rena Aguilar Address [address] [place] [address] Care Team Providers Care Batting Machine Operator Name Role Phone Unavailable Primary Care Provider Unavailabl e Allergies No known active allergies Medications aspirin (ECOTRIN EC) 81 mg Tablet, Delayed Release (E.C.) Take by mouth. Active denosumab (Prolia) 60 mg/mL Syringe Prolia Active escitalopram oxalate (LEXAPRO) 10 mg tablet TAKE 1 TABLET BY MOUTH EVERY DAY 0 Active clopidogreL (PLAVIX) 75 mg Tablet clopidogrel 75 mg tablet Active clonazePAM (KlonoPIN) 1 mg tablet clonazepam 1 mg tablet Active cholecalcifero l, vitamin D3, 1,000 unit Take 1,000 Units by mouth. Active calcium-vitami n D3 (CALTRATE 600+D) 600 mg(1,500mg) -200 unit Tablet Take by mouth. Activ e carbonyl iron (FEOSOL) 45 mg Tablet 45 mg. Active flu vaccine trivalent MF59 (65 yr+)(PF)(FLUAD ) 45 mcg/0.5 mL IM syringe Fluad 65yr up(PF)45 mcg(15 mcgx3)/0.5 mL intramuscular syringe PHARMACIST ADMINISTERED IMMUNIZATION ADMINISTERED AT TIME OF DISPENSING Active benazepriL (LOTENSIN) 40 mg tablet TAKE 1 TABLET BY MOUTH ONCE DAILY 0 Active ciprofloxacin HCl (Cipro) 250 mg tablet 2 times daily. A ctive pravastatin (PRAVACHOL) 20 mg tablet TAKE 1 TABLET BY MOUTH ONCE DAILY 0 Active Active Problems Problem Noted Date Diagnosed Date Iron deficiency 05/25/2020 History of TIA (transient ischemic attack) and s troke 05/25/2020 Family History Medical History Relation Name Comments Cancer Brother Diabetes Brother Heart Disease Brother Cancer Father Heart Disease Mother Relation Name Status Comments Brother Alive Father Mother Son 1 Alive Son 2 Alive Son 3 Alive Social History Tobacco Use Types Packs/Day Years Used Date Smoking Tobacco: Former Cigarettes 0.5 5 0 01/25/1965 - 01/25/1970 Smokeless Tobacco: Never Tobacco Cessation:Counseling Given: Not Answered Alcohol Use Standard Drinks/Week Comments Yes 1 (1 standard drink = 0.6 oz pur e alcohol) OCCASSIONLLY Comments No Sex and Gender Information Value Date Recorded Sex Assigned at Not on file Legal Sex Female 10:10 PM CDT Gender Identity Not on file Sexual Orientation Not on file Last Filed Vital Signs Vital Sign Reading Time Taken Comments Blood Pressure 121/89 03/14/2024 12:07 PM CDT Pulse 78 03/14/2024 12:07 PM CDT Temperature 36.4 C (97.5 F) 03/14/2024 12:07 PM CDT Respiratory Rate 15 03/14/2024 12:07 PM CDT Oxygen Saturation 97% 03/14/2024 12:07 PM CDT Inhaled Oxygen Concentration - - Weight 53.3 kg (117 lb 9.6 oz) 03/14/2024 12:07 PM CDT Height 157.5 cm (5' 2 ) 05/03/2022 2:48 PM CDT Body Mass Index 21.51 05/03/2022 2:48 PM CDT Plan of Treatment Upcoming Encounters Date Type Department Care Team (Late st Contact Info) Description 09/19/2024 10:00 AM CLAM SORTER Office Visit [facility] Oncology and Hematology - [place] [address] [facility] [address] [place] [address] Brenden Jules MD [address] [facility] [address] [place] [address] Health Maintenance Due Date Last Done Comments DTAP/TDAP/TD VACCINES (1 - Tdap) 1959 Traditional Medicare (ACO) A nnual Wellness Visit 1959 ZOSTER VACCINE (1 of 2) 1992 RSV VACCINE (60+ or ) (1 - 1-dose 75+ series) 2017 INFLUENZA VACCINE (#1) 2024 3, 05/11/2022, 04/28/2021, Additional history exists COLORECTAL SCREENING Discontinued 11/19/2018, 11/20/19 19 Colorectal Cancer Screening Discontinued PNEUMOCOCCAL VACCINE 65+ YEARS Completed 01/06/2019 , 03/28/2011 OSTEOPOROSIS SCREENING Completed 4, 09/12/2023, 09/12/2022, Additional history exists FIT-DNA Q 3 years Discontinued FIT/FOBT Q 1 year Discontinued Flex Sig/CT Colonography Q 5 years Discontinued Insurance MEDICARE PART A AND B [facility] SUPP [facility] LIFE INS SUPP [place] [id number]
--- OUTSIDE RECORDS SUMMARY | 2024-09-17 13:30 | XMS_ITS | Data Portability ---
Author Organization [place] [facility], Main Office Address [address] [place] [address] Care Team Providers Care Elevator Constructor Helper Name Role Phone ANABELA TRINH Primary Care Provider ANABELA TRINH Referring Provider Assessment Encounter Date Assessment Date Assessment LastModified by Organization Details LastModified Time 01/09/2024 01/09/2024 83-year-old khalif vital presents for follow-up of her right hip status post IM nailing for a intertroch fracture with subtroch extension, done on 12/24/2023. She reports having improvement in her pain, rated 6/10. She has been walking on it. No other issues with the hip. Incisions are clean dry intact. Sutures removed and redressed. She has no pain with movement of the hip. She uses a walker for ambulation. Sensation intact to light touch X-rays were reviewed, demonstrating hardware intact and in place She is currently doing well. He should continue to be weight-bearing as tolerated, working on ambulation and gait training. We will see her back in 1 month with repeat x-rays. She is in agreement with the plan. Not available 01/09/2024 18:02:15 02/13/2024 02/13/2024 83-year-old khalif vital presents for follow up of her right hip. She has a history of a hip IM nail for an intertrochanteric fracture done on 12/24/2023. She reports feeling better, still having some soreness. She is working with physical therapy. She is currently using a walker. They are trying to transition her to a cane, but she does not feel cuff enough to do that. She currently rates her pain as 2/10. She is only taking Tylenol. Incisions are well healed. She has no tenderness around the hip. She is able to ambulate with a walker without difficulty. No pain with gentle hip range of motion. X-rays of the hip femur were reviewed, demonstrating hardware intact and in place At this point she should continue working with physical therapy and gait training. She may continue taking Tylenol. She can also use topical Voltaren. We renewed her physical therapy. Follow up in 6 weeks, or sooner as needed. Not available 02/14/2024 00:06:06 03/26/2024 03/26/2024 83-year-old fema amanuel presents for follow-up of her right hip status post IM nail on 12/24/2023. Overall she is doing well, no complaints, minimal pain. She has some soreness or pinching sensation over the side of the hip once in a while. She currently rates her pain as 2/10. She has finished her home health PT. Incisions well healed. She has no tenderness around the hip. Nonantalgic gait, using a cane. She reports she occasionally uses a cane at home and when she is out and about. No pain with hip range of motion X-rays were reviewed demonstrating healing fracture with hardware in place At this point she is doing well approximately 3 months out from her hip fracture fixation. She is walking and weaning off of the cane. She may progress with activities as tolerated. She may follow-up in 3 months for recheck as needed. Not available 03/26/2024 14:54:38 Plan of Treatment Reminders Order Date Submit Date Provider Last Modified By Organization Details Last Modified Time Details Appointments None recorded. Lab urinalysis, dipstick 2022 023 [email or web address] 3 [facility] [address] [place], [place], [address], 08:43:03 culture, urine 2022 023 may 36 [facility], [address] [place] [address], [address], 16:31:10 Referral None recorded. Procedures None recorded. Surgeries None recorded. Imaging XR, hip + pelvis, unilateral, 2 or 3 view 2023 024 NATACHA [facility] [place], [address], [place], [address], 4 10:11:21 XR, hip + pelvis, unilateral 2023 024 [facility] [place], [address], [place], [address], 4 23:30:46 Medication Orders ciprofloxac in 500 mg tablet 2022 023 [email or web address] [id number], [address], [place], [address], 16:05:31 Patient TargetsNo targets recorded. Patient InstructionsNo instructions recorded. Reason for Referral None Reported. Results Created Date Observation Date Name Description Value Unit Range Abnormal Flag Note LastModifiedBy Organization Detail LastModifiedTime 05/14/2005/14/2023 urina lysis , dipst ick Leukocytes (reference range: negative jos/ l) Negati ve Not Available [address] [place], [place], [address], 05/14/2023 16:06:45 05/14/2005/14/2023 urina lysis , dipst ick Nitrite (reference rage: negative mg/dl) negati ve Not Available [address] [place], [place], [address], 05/14/2023 16:06:45 05/14/2005/14/2023 urina lysis , dipst ick Urobilinogen (reference range: 0.2-1 mg/dl) 0.2 Not Available [address] [place], [place], [address], 05/14/2023 16:06:45 05/14/2005/14/2023 urina lysis , dipst ick Protein (reference range: negative mg/dl) Negati ve Not Available [address] [place], [place], [address], 05/14/2023 16:06:45 05/14/2005/14/2023 urina lysis , dipst ick pH (reference range: 5-7) 6.5 Not Available [address] [place], [place], [address], 05/14/2023 16:06:45 05/14/2005/14/2023 urina lysis , dipst ick Blood (reference range: negative Jacoby/ l) Hemoly zed: Trace Not Available [address] [place], [place], [address], 05/14/2023 16:06:45 05/14/2005/14/2023 urina lysis , dipst ick Specific [place] (reference range: 1.005-1.030) 1.030 Not Available [address] [place], [place], [address], 05/14/2023 16:06:45 05/14/2005/14/2023 urina lysis , dipst ick Ketone (reference range: negative mg/dl) Negati ve Not Available [address] [place], [place], [address], 05/14/2023 16:06:45 05/14/2005/14/2023 urina lysis , dipst ick Bilirubin (reference range: negative mg/dl) Negati ve Not Available [address] [place], [place], [address], 05/14/2023 16:06:45 05/14/2005/14/2023 urina lysis , dipst ick Glucose (reference range: negative mg/dl) Negati ve Not Available [address] [place], [place], [address], 05/14/2023 16:06:45 05/14/2005/14/2023 urina lysis , dipst ick Appearance Clear Not Available [address] [place], [place], [address], 05/14/2023 16:06:45 05/14/2005/14/2023 urina lysis , dipst ick Color Yellow Not Available [address] [place], [place], [address], 05/14/2023 16:06:45 05/11/2005/11/2023 sandra heredia study No observ ation record ed. [address], [place], [address], 05/16/2023 12:31:15 05/19/2005/19/2023 CT, cervi leslie spine , w/o contr ast No observ ation record ed. [address], [place], [address], 05/21/2023 14:35:37 10/04/19 24 10/04/2023 US, doppl er echoc ardio gram No observ ation record ed. [email or web address] [place] [address] [facility] [address], [place], [address], 10/05/2023 09:35:57 12/23/19 24 12/23/2023 CT, hip + pelvi s, w/o contr ast No observ ation record ed. [email or web address] [facility] [address] [place], [address], 12/25/2023 14:52:19 12/24/19 24 12/24/2023 RF, alcira nce No observ ation record ed. [email or web address] [facility] [address] [place], [address], 12/25/2023 14:52:54 01/09/20 24 XR, hip + pelvi s, unila teral No observ ation record ed. [email or web address] [facility] [place] [address], [place], [address], 01/09/2024 11:44:58 03/26/20 24 XR, hip + pelvi s, unila teral , 2 or 3 view No observ ation record ed. [email or web address] [facility] [place] [address] [facility] [address], [place], [address], 03/26/2024 11:59:35 Result Notes None recorded. Problems Name Problem SNOMED Code Status Onset Date Resolution Date Notes Provider Name and Address Organization Details Recorded Time History of transient ischemic attack 319052988 Active Not Available [facility] 4 06:25:08 Arthritis of wrist 88156611947 09 Completed Not Available [facility] 3 02:51:46 Impacted cerumen 55328008 Completed Not Available [facility] 3 02:51:46 Impacted cerumen 98717919 Active 2016 Not Available [facility] 4 06:25:08 Radial styloid tenosynov itis 77636443 Completed Not Available [facility] 3 02:51:46 Degenerat ion of lumbar intervert ebral disc 66170642 Completed Not Available [facility] 3 02:51:46 Shoulder joint pain 360188200 Active 2016 Not Available [facility] 4 06:25:08 Anemia 600305477 Active Not Available [facility] 4 06:25:08 History of gastric ulcer 783450680 Active 2018 Not Available [facility] 4 06:25:08 Low back pain 191025617 Active Not Available [facility] 4 06:25:08 Menopause present 509744295 Completed Not Available [facility] 3 02:51:47 Pain in pelvis 55054909 Completed Not Available [facility] 3 02:51:47 Restless legs 33898708 Active Not Available [facility] 4 06:25:08 Vitamin D deficienc y 53313857 Active Not Available [facility] 4 06:25:08 Depressiv e disorder 05521454 Active Not Available [facility] 4 06:25:08 Hypertens tony disorder 18175869 Completed Not Available [facility] 3 02:51:47 Fever 146133503 Active 2016 Not Available [facility] 4 06:25:08 Osteoarth ritis 890893089 Active Not Available [facility] 4 06:25:08 Diverticu lar disease 970053314 Active Not Available [facility] 4 06:25:08 Carotid bruit 422657317 Completed Not Available [facility] 3 02:51:48 Decreased flexion 72354072 Completed Not Available [facility] 3 02:51:48 Anxiety 21193941 Active Not Available [facility] 4 06:25:08 Upper respirato ry infection 92803363 Completed Not Available [facility] 3 02:51:48 Lower abdominal pain 38048830 Completed Not Available [facility] 3 02:51:49 Hyperlipi demia 86850953 Active Not Available [facility] 4 06:25:08 Essential hypertens ion 86275206 Active Not Available [facility] 4 06:25:08 Colitis 25924494 Completed Not Available [facility] 3 02:51:49 Osteoporo sis 62471347 Active Not Available [facility] 4 06:25:08 Intoleran t of cold 09998829 Completed Not Available [facility] 3 02:51:49 COVID-19 392531994 Active 2019 Not Available [facility] 4 06:25:08 Fatigue 82686763 Completed Not Available [facility] 3 02:51:50 Mixed anxiety and depressiv e disorder 154373808 Active 2022 Not Available [facility] 4 06:25:08 Irritable bowel syndrome character ized by constipat ion 277351088 Active 2022 Not Available [facility] 4 06:25:08 Impacted cerumen in right ear 85780682306 05930 Active 2022 Not Available [facility] 4 06:25:08 Gastro-es ophageal reflux disease with esophagit is 103519014 Active 2022 Not Available [facility] 4 06:25:08 Dysuria 64605738 Active 2022 Not Available [facility] 4 06:25:08 Chronic low back pain 234314475 Active 2022 Not Available [facility] 4 06:25:08 Chronic neck pain 64184208749 07 Active 2022 Not Available [facility] 4 06:25:08 Pain in right hip joint 85273744725 9102 Active 2023 ELDA Hughes [employer] 4 11:18:40 Closed intertroc hanteric fracture 59043260 Active 2023 ELDA Hughes [employer] 4 11:46:05 Problem Notes None recorded. Procedures Surgical History Date Name Laterality Status Provider Name and Address Organization Details Recorded Time 12/24/19 24 Hip surgery completed ELDA Hughes [employer] 01/09/2024 11:17:03 09/18/19 Endoscopy completed Not Available [facility] 3 02:40:06 Cataract Surgery completed Not Available [facility] 09/27/2022 02:40:06 Colonoscopy completed Not Available [facility] 09/27/2022 02:40:06 Orthopedic Procedure completed Not Available [facility] 09/27/2022 02:40:06 Imaging Results Imaging Date Name Status LastModified by Organization Details LastModified Time 05/11/2023 barium swallow study completed [address] [facility] [address], [place], [address], 05/16/2023 12:31:15 05/19/2023 CT, cervical spine, w/o contrast completed [address], [place], [address], 05/21/2023 14:35:37 10/04/2023 US, doppler echocardiogram completed [address] [facility] [address], [place], [address], 10/05/2023 09:35:57 12/23/2023 CT, hip + pelvis, w/o contrast completed [address] [place], [address], 12/25/2023 14:52:19 12/24/2023 RF, guidance completed [address] [place], [address], 12/25/2023 14:52:54 01/09/2024 XR, hip + pelvis, unilateral completed [email or web address] [facility] [place] [address], [place], [address], 01/09/2024 11:44:58 03/26/2024 XR, hip + pelvis, unilateral, 2 or 3 view completed [email or web address] [facility] [place] [address], [place], [address], 03/26/2024 11:59:35 Procedure Notes None recorded. Medical Equipment None Reported. Allergies Allergen ID Allergen Name Allergen Category Reaction Reaction Severity Criticality Documentation Date Start Date Code Code System Note Provider Name and Address Organization Details Recorded Time 4999 Fosamax medicatio n other Not available Not available 09/27/2022 58018 5 RxNorm reflu x Not Available [facility] 03:06:02 Medications Name Sig Start Date Stop Date Status Note LastModified by Organization Details LastModified Time cyclobenz aprine 10 mg tablet TAKE 1/2 TABLET BY MOUTH THREE TIMES A DAY NEEDED FOR MUSCLE SPASMS 01/06 completed Not Available Not Available Not Available Augmentin 875 mg-125 mg tablet Take 1 tablet every 12 hours by oral route for 10 days. active Not Available Not Available No t Available promethaz ine-DM 6.25 mg-15 mg/5 mL oral syrup TAKE 5 ML BY MOUTH EVERY 4 HOURS NEEDED FOR 10 DAYS 01/08 completed Not Available Not Available Not Available azithromy shanthi 250 mg tablet TAKE 2 TABLETS BY MOUTH TODAY, THEN TAKE 1 TABLET DAILY FOR 4 DAYS 08/24 completed Not Available Not Available Not Available valacyclo vir 1 gram tablet 01/06 completed Not Available Not Available Not Available cephalexi n 250 mg capsule TAKE 1 CAPSULE BY MOUTH EVERY 12 HOURS FOR 7 DAYS 03/25 completed Not Available Not Available Not Available hydrocodo ne 5 mg-acetam inophen 325 mg tablet Take by oral route for 3 days. active Not Available Not Available No t Available Celestone Soluspan 6 mg/mL suspensio n for injection active [facility]# [id number] 20-01 Not Available Not Available Not Available sucralfat e 1 gram tablet 04/08 completed Not Available Not Available Not Available ondansetr on HCl 4 mg tablet TAKE 1 TABLET BY MOUTH EVERY 8 HOURS 01/08 completed Not Available Not Available Not Available clonazepa m 0.5 mg tablet TAKE 1 TABLET BY MOUTH TWICE A DAY NEEDED FOR ANXIETY active Not Available Not Available No t Available dexametha sone 6 mg tablet TAKE 1 TABLET BY MOUTH EVERY DAY IN THE MORNING FOR 7 DAYS 01/08 completed Not Available Not Available Not Available clonazepa m 1 mg tablet active Not Available Not Available Not Available Depo-Medr ol 20 mg/mL suspensio n for injection 06/09 completed Gave 1/2cc 80mg ND#[id number] 2 Not Available Not Available Not Available Debrox 6.5 % ear drops INSTILL 3-4 DROPS INTO AFFECTED EAR(S) BY OTIC ROUTE 2 TIMES PER DAY 12/11 completed Not Available Not Available Not Available penicilli n V potassium 500 mg tablet 07/25 completed Not Available Not Available Not Available metronida zole 500 mg tablet Take 1 tablet every 8 hours by oral route for 7 days. active Not Available Not Available No t Available clopidogr el 75 mg tablet TAKE 1 TABLET DAILY active Not Available Not Available No t Available ciproflox acin 250 mg tablet Take 1 tablet twice a day by oral route for 5 days. active Not Available Not Available No t Available benazepri l 20 mg-hydroc hlorothia zide 12.5 mg tablet 2 tablets by mouth every day active Not Available Not Available No t Available ciproflox acin 500 mg tablet TAKE 1 TABLET BY MOUTH EVERY 12 HOURS FOR 5 DAYS 01/06 completed Not Available Not Available Not Available omeprazol e 40 mg capsule,d elayed release Take 1 capsule every day by oral route for 30 days. 04/20 completed Not Available Not Available Not Available tramadol 50 mg tablet TAKE 1/2-1 TABLET BY MOUTH EVERY 6 HOURS NEEDED FOR PAIN active Not Available Not Available No t Available amoxicill in 500 mg tablet TAKE 4 TABLETS BY MOUTH 1HOUR BEFORE DENTAL PROCEDUR E active Not Available Not Available No t Available quinapril 40 mg tablet Take 1 tablet every day by oral route for 90 days. 08/11 completed Not Available Not Available Not Available Mobic 15 mg tablet Take 1 tablet every day by oral route in the morning for 30 days. 01/29 completed Not Available Not Available Not Available alprazola m 0.5 mg tablet Take 1 tablet 3 times a day by oral route as needed for 30 days. 01/14 completed Not Available Not Available Not Available meclizine 25 mg tablet Take 1 tablet 3 times a day by oral route as needed for 10 days. 01/08 completed Not Available Not Available Not Available cephalexi n 500 mg capsule Take 1 capsule twice a day by oral route for 7 days. active Not Available Not Available No t Available pantopraz ole 40 mg tablet,de layed release TAKE 1 TABLET BY MOUTH EVERY DAY active Not Available Not Available No t Available cyanocoba horace (vit B-12) 1,000 mcg/mL injection solution Inject 1 mL every month by intramus cular route. 06/09 completed [facility]# [id number] 31 Not Available Not Available Not Available ibuprofen 400 mg tablet TAKE 1 TABLET BY MOUTH THREE TIMES A DAY 01/06 completed Not Available Not Available Not Available gabapenti n 300 mg capsule Take 1 capsule twice a day by oral route. active Not Available Not Available No t Available aspirin 81 mg chewable tablet Chew 1 tablet every day by oral route. 01/06 completed Not Available Not Available Not Available diclofena c sodium 75 mg tablet,de layed release Take 1 tablet twice a day by oral route for 30 days. 04/09 completed Not Available Not Available Not Available pravastat in 20 mg tablet TAKE 1 TABLET DAILY active Not Available Not Available No t Available diclofena c sodium 50 mg tablet,de layed release active Not Available Not Available Not Available Transderm -Scop 1 mg over 3 days transderm al patch Apply 1 patch every 72 hours by transder mal route. active Not Available Not Available No t Available ibuprofen 600 mg tablet active Not Available Not Available Not Available benazepri l 40 mg tablet TAKE 1 TABLET DAILY active Not Available Not Available No t Available methylpre dnisolone 4 mg tablets in a dose pack TAKE 6 TABLETS ON DAY 1 DIRECTED ON PACKAGE AND DECREASE BY 1 TAB EACH DAY FOR A TOTAL OF 6 DAYS 08/24 completed Not Available Not Available Not Available Paxil 10 mg tablet Take 1 tablet every day by oral route for 30 days. 08/11 completed Not Available Not Available Not Available cefdinir 300 mg capsule Take 1 capsule every 12 hours by oral route for 10 days. 04/28 completed Not Available Not Available Not Available sertralin e 50 mg tablet Take 1/2 po daily for 1 week, then increase to 1 tablet po daily. Take at bedtime. active Not Available Not Available No t Available doxycycli ne hyclate 100 mg tablet Take 1 tablet twice a day by oral route for 10 days. 01/06 completed Not Available Not Available Not Available Asacol 400 mg tablet,de layed release Take 2 tablets twice a day by oral route for 30 days. 08/11 completed Not Available Not Available Not Available bacitraci n-polymyx in B 500 unit-10,0 00 unit/gram eye ointment 04/08 completed Not Available Not Available Not Available neomycin 3.5 mg/g-poly myxin B 10,000 unit/g-de xameth 0.1 % eye oint active Not Available Not Available Not Available neomycin- polymyxin -hydrocor t 3.5 mg-10,000 unit/mL-1 % ear drops,moraima p INSTILL 4 DROPS INTO AFFECTED EAR(S) BY OTIC ROUTE 3 TIMES PER DAY active Not Available Not Available No t Available escitalop nathan 10 mg tablet TAKE 1 TABLET BY MOUTH EVERY DAY active Not Available Not Available No t Available escitalop nathan 20 mg tablet TAKE 1 TABLET BY MOUTH EVERY DAY 04/28 completed Decrease to 10mg daily Not Available Not Available Not Available cyclobenz aprine 5 mg tablet TAKE 1 TABLET BY MOUTH THREE TIMES A DAY NEEDED FOR MUSCLE SPASM 03/25 completed Not Available Not Available Not Available TriLyte With Flavor Packets 420 gram oral solution active Not Available Not Available Not Available ibandrona te 150 mg tablet TAKE 1 TABLET ONCE EVERY MONTH 12/11 completed Not Available Not Available Not Available iron 01/06 completed otc Not Available Not Available Not Available Calcium 600 + D(3) 2 PO QD 10/26 completed Not Available Not Available Not Available Apriso 0.375 gram capsule,e xtended release Take by oral route for 30 days. active TAKES PRN -- DR. ROMERO PRESCRIB Not Available Not Available Not Available Asacol HD 800 mg tablet,de layed release TAKE ONE TABLET TWICE DAILY active Not Available Not Available No t Available Gavilyte- C 240 gram-22.7 2 gram-6.72 gram-5.84 gram oral solution 10/08 completed Not Available Not Available Not Available Prolia 60 mg/mL subcutane ous syringe active Not Available Not Available Not Available Prolia 01/06 completed Not Available Not Available Not Available Fluzone High-Dose [id number] (PF) 180 mcg/0.5 mL intramusc ular syringe 12/11 completed Not Available Not Available Not Available Fluzone High-Dose (PF) 180 mcg/0.5 mL intramusc ular syringe 10/16 completed Not Available Not Available Not Available Fluad 2018- 65yr up(PF)45 mcg(15 mcgx3)/0. 5 mL intramusc ular syringe PHARMACI ST ADMINIST ERED IMMUNIZA TION ADMINIST ERED AT TIME OF DISPENSI NG 11/11 completed Not Available Not Available Not Available Fluad Quad (65yr up)(PF) 60 mcg (15 mcg x 4)/0.5mL IM syringe PHARMACI ST ADMINIST ERED IMMUNIZA TION ADMINIST ERED AT TIME OF DISPENSI NG 10/25 completed Not Available Not Available Not Available Paxlovid 300 mg (150 mg x 2)-100 mg tablets in a dose pack USE DIRECTED 01/08 completed Not Available Not Available Not Available Vitals Date Recorded Body height Provider Name an d Address Organization Details Last Updated DateTime 05/14/2023 157.48 cm Lena Corrales [facility] [employer] 05/14/2023 16:04:33 Date Recorded Body height Body mass index (BMI) Body weight Body temperature Heart rate Oxygen saturation Oxygen saturation in Arterial blood by Pulse oximetry Systolic blood pressure Diastolic blood pressure Provider Name and Address Organization Details Last Updated DateTime 157.48 cm 23 kg/m2 25114.6 4 g 97 [degF] 68 /min 97 % 97 % 132 mm[Hg] 78 mm[Hg] Lena tim [facility] [employer] 12:22:43 Date Recorded Body height Body mass index (BMI) Body weight Pain severity - 0-10 verbal numeric rating [Score] - Reported Provider Name and Address Organization Details Last Updated DateTime 01/09/2024 157.48 cm 22.9 kg/m2 25166.05 g 6 ELDA Hughes [employer] 01/09/2024 11:14:55 Date Recorded Body height Body mass index (BMI) Body weight Provider Name and Address Organization Details Last Updated DateTime 02/13/2024 160.02 cm 21.1 kg/m2 18188.49 g Anette Triana [facility] 02/13/2024 14:09:59 Date Recorded Body height Body mass index (BMI) Body weight Pain severity - 0-10 verbal numeric rating [Score] - Reported Provider Name and Address Organization Details Last Updated DateTime 03/26/2024 160.02 cm 20.9 kg/m2 44749.9 g 2 Katarzyna BainELDA [facility] [employer] [facility] 03/26/2024 11:45:29 Social History Question Answer Notes LastModified by [employer] ion Details LastModified Time Tobacco Smoking Status Former Smoker Not Available [facility] 09/27/2022 02:32:22 Do You Have An Advance Directive? Yes [id number] Information not available 09/27/2022 What Is Your Level Of Alcohol Consumption? None [id number] Information not available 09/27/2022 Are You Blind Or Do You Have Difficulty Seeing? No [id number] Information not available 09/27/2022 What Is Your Level Of Caffeine Consumption? Occasional [id number].[id number] Information not available 09/27/2022 How Much Tobacco Do You Chew? None MIGRATION.[id number] Information not available 09/27/2022 Are You Deaf Or Do You Have Serious Difficulty Hearing? Yes [id number] Information not available 09/27/2022 Which Illicit Or Recreational Drugs Have You Used? No MIGRATION.[id number] Information not available 09/27/2022 Do You Or Have You Ever Used E-cigarettes Or Vape? Never Used Electronic Cigarettes [id number] Information not available 09/27/2022 What Is Your Occupation? Retired MIGRATION.[id number] Information not available 09/27/2022 What Was The Date Of Your Most Recent Tobacco Screening? 01/09/2024 [email or web address] Information not available 01/09/2024 At What Age Did You Start Smoking Tobacco? 20 Quit 30 MIGRATION.[id number] Information not available 09/27/2022 Do You Or Have You Ever Used Smokeless Tobacco? Never Used Smokeless Tobacco MIGRATION.[id number] Information not available 09/27/2022 How Much Tobacco Do You Smoke? 1 PPW MIGRATION.[id number] 4875 Information not available 09/27/2022 Sex: Unknown Functional Status Question Answer Note LastModified by General [employer] ion Details LastModified Time Do you have difficulty walking or climbing stairs? No [id number] Information not available 09/27/2022 Do you have difficulty doing errands alone? No [id number].[id number] 6 Information not available 09/27/2022 Do you have difficulty dressing or bathing? No MIGRATION.[id number] 6 Information not available 09/27/2022 What is your exercise level? None [id number].[id number] 6 Information not available 09/27/2022 Mental Status Question Answer Note LastModified by Organizat ion Details LastModified Time Do you have difficulty concentrating, remembering or making decisions? No MIGRATION.[id number] 6 Information not available 09/27/2022 Family History Relationship Description Onset Age of this Age Resolved Age Notes LastModified by Organization Details LastModified Time Father Malignant tumor of colon 57 [email or web address] Not available 02/12 14:04:18 Father Arthritis [email or web address] Not availa ble 02/13/2024 14:04:18 Mother Deep venous thrombosis [email or web address] Not available 01/27 14:04:18 Mother Arthritis [email or web address] Not availa ble 02/13/2024 14:04:18 Mother Heart disease [id number] Not available 09/27/2022 02:40:12 Mother Myocardial infarction 86 [id number] Not available 09/27/2022 02:40:12 Brother Renal dialysis [email or web address] Not available 02/12 14:04:18 Brother Renal dialysis [email or web address] Not available 02/12 14:04:18 Medical History Condition Response ARTHRITIS Y USE OF BLOOD THINNERS Y DIZZINESS Y HEARTBURN / REFLUX Y HYPERTENSION Y ANXIETY DISORDER Y OSTEOPOROSIS Y GOUT Y BOWEL PROBLEMS Y BACK / NECK PROBLEMS Y DEPRESSION (INCLUDING POST ) Y OSTEOARTHRITIS Y STROKE/TIA Y Gynecological HistoryNo gynecological history recorded. Obstetrics History GPAL:G 0 P 0 0 0 0 Immunizations Vaccine Type Date Status Note Provider Nam e and Address Organization Details Recorded Time Influenza, high-dose, trivalent, PF 7 completed Not Available [facility] 08/22/2023 06:25:09 COVID-19, mRNA, LNP-S, PF, 100 mcg/0.5mL dose or 50 mcg/0.25mL dose 1 completed Not Available [facility] 08/22/2023 06:25:09 COVID-19, mRNA, LNP-S, PF, 100 mcg/0.5mL dose or 50 mcg/0.25mL dose 1 completed Not Available [facility] 08/22/2023 06:25:09 COVID-19, mRNA, LNP-S, PF, 100 mcg/0.5mL dose or 50 mcg/0.25mL dose 1 completed Not Available [facility] 08/22/2023 06:25:09 Influenza, split virus, quadrivalent, preservative 0 completed Not Available [facility] 08/22/2023 06:25:09 Influenza, split virus, quadrivalent, preservative 9 completed Not Available [facility] 08/22/2023 06:25:09 Influenza, split virus, quadrivalent, preservative 8 completed Not Available [facility] 08/22/2023 06:25:09 Influenza, split virus, trivalent, preservative 6 completed Not Available [facility] 08/22/2023 06:25:09 Influenza, split virus, trivalent, preservative 5 completed Not Available [facility] 08/22/2023 06:25:09 Influenza, split virus, trivalent, preservative 4 completed Not Available [facility] 08/22/2023 06:25:09 pneumococcal polysaccharide PPV23 1 completed Not Available [facility] 08/22/2023 06:25:09 Influenza, split virus, trivalent, preservative 1 completed Not Available [facility] 08/22/2023 06:25:09 Influenza, high-dose, quadrivalent, PF 2 completed Not Available [facility] 08/22/2023 06:25:09 Influenza, high-dose, quadrivalent, PF 1 completed Not Available [facility] 08/22/2023 06:25:09 Pneumococcal conjugate PCV 13 9 completed Not Available [facility] 08/22/2023 06:25:09 Influenza, high-dose, quadrivalent, PF 3 completed Ej Perez MD [address], [address], [place], [address], [facility] 05/21/2023 19:15:23 Past Encounters Encounter ID Performer Location Encounter Start Date Encounter Closed Date Diagnosis/Indication Diagnosis SNOMED-CT Code Diagnosis ICD10 Code Diagnosis Note [id number] [facility] [place] [address] [place] [address] 10/25/2020 00:00:00 10/25/2020 14:16:43 [id number] [facility] [place] [address] [place] [address] 04/28/2021 00:00:00 04/28/2021 11:27:22 [id number] [facility] [place] [address] [place] [address] 10/26/2021 00:00:00 10/26/2021 11:52:54 [id number] [facility] [place] [address] [place] [address] 12/15/2021 00:00:00 12/15/2021 15:26:27 [id number] [facility] [place] [address] [place] [address] 01/11/2022 00:00:00 01/11/2022 14:47:36 [id number] [facility] [place] [address] [place] [address] 04/25/2022 00:00:00 04/25/2022 13:00:17 [id number] [facility] [place] [address] [place] [id number] 05/11/2022 00:00:00 05/11/2022 11:42:29 [id number] [facility] [place] [address] [place] [address] 08/24/2022 00:00:00 08/25/2022 05:49:32 [id number] Ej Perez MD [facility] [address] [place] [address] y [place] [address] 03/05/2023 09:15:48 03/05/2023 09:52:42 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 [id number] Ej Perez MD [address] [place] [address] [place] [address] 05/14/2023 15:25:58 05/15/2023 15:57:31 Dysuria [id number] R30.0 [id number] Ej Perez MD [address] [place] [address] [place] [address] 05/21/2023 12:14:59 05/21/2023 12:42:27 Chronic low back pain 940820456 M54.50 Stretching recommende d. May need to go to pain management for this. Chronic neck pain 494733 8455 107 M54.2 Stretching recommende d. Showed pt how to do stretching . Administra tion of influenza vaccine 11860848 Z23 [id number] Mandeep Fermin MD [facility] [address] [place] [address] 01/09/2024 10:57:11 01/09/2024 11:55:45 Pain in right hip joint [id number] 07634 M25.548 [id number] Mandeep Fermin MD [facility] [place] [address] [place] [address] 02/13/2024 14:03:08 02/13/2024 14:57:55 Pain in right hip joint [id number] 59217 M25.835 [id number] [address] Fermin MD [facility] [place] [address] [place] [address] 03/26/2024 11:43:15 03/26/2024 12:07:01 Pain in right hip joint 1791603793 05161 M25.551 Closed intertrochanteric fracture 10049816 S72.141D Health Concerns Section Related Observation LastModified by Organization Detai ls LastModified Time None Recorded Concern Status LastModified by Organization Details LastModified Time None Recorded Advance Directives Directive Y: Payers Encounter Date Sequence Insurance Name Policy Number Policy Turcios Covered Member ID Turcios Member ID Guarantor Name 05/14/2023 1 [place] Rosanne Hilario [id number] Rosanne Hilario 05/14/2023 2 [employer] - PLAN F (MEDICARE SUPPLEMENT) Rosanne Hilario [id number] Rosanne Hilario 05/21/2023 1 [place] Rosanne Hilario [id number] Rosanne Hilario 05/21/2023 2 [employer] - PLAN F (MEDICARE SUPPLEMENT) Rosanne Hilario [id number] Rosanne Hilario 01/09/2024 1 [place] Rosanne Hilario [id number] Rosanne Hilario 01/09/2024 2 [employer] - PLAN F (MEDICARE SUPPLEMENT) Rosanne Hilario [id number] Rosanne Hilario 02/13/2024 1 [place] Rosanne Hilario [id number] Rosanne Hilario 02/13/2024 2 [employer] - PLAN F (MEDICARE SUPPLEMENT) Rosanne Hilario [id number] Rosanne Hilario 03/26/2024 1 [place] Rosanne Hilario [id number] Rosanne Hilario 03/26/2024 2 [employer] - PLAN F (MEDICARE SUPPLEMENT) Rosanne Hilario [id number] Rosanne Hilario Notes Date Note Type Note Provider Name and Address Organization Details Recorded Time 05/21/2023 text/html Here today for E R f/u. Had neck pain. Could not move neck. Had back pain and radiated to groin. Was using a walker. Was given a shot in arm given valium and Rx for cyclobenzaprine. She wants to know if there is anything to do for DJD of neck. She is on clopidogrel so Can not use NSAIDs she has LBP too and may need to go to pain management.Pt is wanting the flu shot. Ej Perez MD [address] [facility] [facility] [address], [place], [address], [place] [facility] [place] [employer] [facility] 05/21/2023 19:24:31 OBGyn Episode No OBEpisode recorded.
--- OUTSIDE RECORDS SUMMARY | 2024-09-17 13:30 | XMS_ITS | Patient Health Summary ---
Author Organization [facility] Address [address] [place] [address] Care Team Providers Care Pension Consultant Name Role Phone Nelli Steinberg APRN-HOOP DRIVING MACHINE OPERATOR HELPER Unavailable [phone] Note from [facility],non-owned Affiliates and Associated Physician Practices is amultiple site organization consisting of ambulatory clinics and hospital sitesin [place], [place], [place] and [place]. This disclosure is being madepursuant to the Care Everywhere program and may not contain all information available regarding this patient. Last updated 18.[facility] Allergies No known active allergies Medications * Be aware that medications may not be up to date on this document. Alwaysverify current medications with the patient. * clopidogrel (PLAVIX) 75 MG tablet Take 75 mg by mouth once daily * PRAVASTATIN SODIUM PO * BENAZEPRIL HCL PO * ALPRAZolam (XANAX PO) * Calcium Citrate-Vitamin D (CALCIUM + D PO) * Cyanocobalamin (VITAMIN B 12 PO) * Aspirin (ASPIR-81 PO) * Escitalopram Oxalate (LEXAPRO PO) * clonazePAM (KLONOPIN) TABS tablet Take by mouth 2 times daily * BENAZEPRIL HCL PO * CLOPIDOGREL BISULFATE PO * Escitalopram Oxalate (LEXAPRO PO) * CLONAZEPAM PO * pravastatin (PRAVACHOL) 20 MG tablet Take 20 mg by mouth at bedtime * Calcium Carb-Cholecalciferol (CALCIUM + D3 PO) * aspirin (ASPIRIN) 81 MG tablet Take 81 mg by mouth once daily * Ibandronate Sodium (BONIVA IV) * benzonatate (TESSALON) 200 MG capsule(Started 06/30/2017) Take 1 capsule by mouth 3 times daily as needed for Cough Social History Tobacco Use Types Packs/Day Years Used Date Smoking Tobacco: Former Smokeless Tobacco: Never Sex and Gender Information Value Date Recorded Sex Assigned at Not on file Gender Identity Not on file Sexual Orientation Not on file Last Filed Vital Signs Vital Sign Reading Time Taken Comments Blood Pressure 140/90 07/29/2018 11:17 AM ELECTRONICS PRODUCTION SUPERVISOR Pulse 69 07/29/2018 11:17 AM ELECTRONICS PRODUCTION SUPERVISOR Temperature 36.7 C (98.1 F) 07/29/2018 11:17 AM ELECTRONICS PRODUCTION SUPERVISOR Respiratory Rate 16 07/29/2018 11:17 AM ELECTRONICS PRODUCTION SUPERVISOR Oxygen Saturation 99% 07/29/2018 11:17 AM ELECTRONICS PRODUCTION SUPERVISOR Inhaled Oxygen Concentration - - Weight 56.2 kg (124 lb) 07/29/2018 11:17 AM ELECTRONICS PRODUCTION SUPERVISOR Height 160 cm (5' 3 ) 07/29/2018 11:17 AM ELECTRONICS PRODUCTION SUPERVISOR Body Mass Index 21.97 07/29/2018 11:17 AM ELECTRONICS PRODUCTION SUPERVISOR Procedures * STREP A SCREEN - POINT OF CARE (AMB) STL(Performed 06/30/2017) Performed for Pharyngitis due to Streptococcus species * URINALYSIS AUTO - POINT OF CARE (AMB) STL(Performed 07/02/2016) Performed for Acute cystitis without hematuria * CULTURE URINE(Performed 07/02/2016) Performed for Acute cystitis without hematuria Results * (ABNORMAL) STREP A SCREEN - POINT OF CARE (AMB) STL (06/30/2017) Strep A Rapid POCT Positive(A) Negative Strep A Internal Control Present Lot # [id number] Expiration Date 01/12/2019 Throat ENTIRE THROAT (SURFACE REGION OF NECK) / Unknown 06/30/2017 [facility] - POINT OF CARE ORDERABLES * (ABNORMAL) URINALYSIS AUTO - POINT OF CARE (AMB) STL (07/02/2016 11:27 AM ELECTRONICS PRODUCTION SUPERVISOR) Clarity UA POCT clear Color UA POCT yellow Leukocyte UA 70 Negative Nitrite UA POCT neg Negative Urobilinogen UA 0.2 0.1 - 1.0 Protein UA POCT 30 Negative pH UA 6.5 5.0 - 8.0 pH units Blood UA 2+ Negative Specific [place] UA POCT 1.005 1.002 - 1.030 Ketone UA neg Negative Bilirubin UA POCT neg Negative Glucose UA neg Negative Expiration Date 05/29/2017 Lot # [id number] QC Verified Yes Yes URINE / Unknown 07/02/2016 1 1:27 AM ELECTRONICS PRODUCTION SUPERVISOR Shelia Lopez APRN-HOOP DRIVING MACHINE OPERATOR [facility] - POINT O F CARE ORDERABLES * CULTURE URINE (07/02/2016 11:27 AM ELECTRONICS PRODUCTION SUPERVISOR) Urine Culture Routine Final report [facility] INSURANCE BILL Result 1 No growth [facility] INSURANCE BILL Urine URINE SPECIMEN OBTAINED BY CLEAN CATCH PROCEDURE / Unknown 07/02/2016 11:27 AM ELECTRONICS PRODUCTION SUPERVISOR 07/03/2016 Narrative Resulting Agency Comment [facility] [place] [address] [facility] [id number] Shelia Lopez APRN-HOOP DRIVING MACHINE OPERATOR [facility] - MICROBI OLOGY ORDERABLES [facility] INSURANCE BILL [address] [place] [address] Care Teams Pension Consultant Relationship Specialty Start Date End Date Nelli Steinberg APRN-CNP [address] [address] Nurse Practitioner 06/30/17
--- OUTSIDE RECORDS SUMMARY | 2024-09-17 13:30 | XMS_ITS | Clinical Summary ---
Author Organization [facility] Address [address] [place] [address] Care Team Providers Care Marketing Production Coordinator Name Role Phone Nelli Steinberg APRN-STEWARD/STEWARDESS SECOND CLASS Unavailable [phone] Source Comments [facility],non-owned Affiliates and Associated Physician Practices is amultiple site organization consisting of ambulatory clinics and hospital sitesin [place], [place], [place] and [place]. This disclosure is being madepursuant to the Care Everywhere program and may not contain all information available regarding this patient. Last updated 18.[facility] Allergies No known active allergies Medications * Be aware that medications may not be up to date on this document. Alwaysverify current medications with the patient. Medication Sig Dispensed Refills Start Date End Date Status clopidogrel (PLAVIX) 75 MG tablet Take 75 mg by mouth once daily Active PRAVASTATIN SODIUM PO Active BENAZEPRIL HCL PO Active ALPRAZolam (XANAX PO) Active Calcium Citrate-Vitamin D (CALCIUM + D PO) Active Cyanocobalamin (VITAMIN B 12 PO) Active Aspirin (ASPIR-81 PO) Active Escitalopram Oxalate (LEXAPRO PO) Active clonazePAM (KLONOPIN) TABS tablet Take by mouth 2 times daily Active BENAZEPRIL HCL PO Active CLOPIDOGREL BISULFATE PO Active Escitalopram Oxalate (LEXAPRO PO) Active CLONAZEPAM PO Active pravastatin (PRAVACHOL) 20 MG tablet Take 20 mg by mouth at bedtime Active Calcium Carb-Cholecalciferol (CALCIUM + D3 PO) Active aspirin (ASPIRIN) 81 MG tablet Take 81 mg by mouth once daily Active Ibandronate Sodium (BONIVA IV) Active benzonatate (TESSALON) 200 MG capsuleIndications:U pper airway cough syndrome Take 1 capsule by mouth 3 times daily as needed for Cough 30 capsule 06/30/2017 Active Social History Tobacco Use Types Packs/Day Years Used Date Smoking Tobacco: Former Smokeless Tobacco: Never Sex and Gender Information Value Date Recorded Sex Assigned at Not on file Gender Identity Not on file Sexual Orientation Not on file Last Filed Vital Signs Vital Sign Reading Time Taken Comments Blood Pressure 140/90 07/29/2018 11:17 AM CHERRY CUTTER Pulse 69 07/29/2018 11:17 AM CHERRY CUTTER Temperature 36.7 C (98.1 F) 07/29/2018 11:17 AM CHERRY CUTTER Respiratory Rate 16 07/29/2018 11:17 AM CHERRY CUTTER Oxygen Saturation 99% 07/29/2018 11:17 AM CHERRY CUTTER Inhaled Oxygen Concentration - - Weight 56.2 kg (124 lb) 07/29/2018 11:17 AM CHERRY CUTTER Height 160 cm (5' 3 ) 07/29/2018 11:17 AM CHERRY CUTTER Body Mass Index 21.97 07/29/2018 11:17 AM CHERRY CUTTER Plan of Treatment Health Maintenance Due Date Last Done Comments BONE DENSITY TESTING 1940 MEDICARE AWV 12 MONTHS 1942 DTAP/TDAP/TD VACCINES (1 - Tdap) 1961 PNEUMOCOCCAL VACCINE 50+ (1 of 1 - PCV) 1992 ZOSTER VACCINE (1 of 2) 1992 Respiratory Syncytial Virus (RSV) Vaccine Pt: or over 60 yrs (1 - 1-dose 75+ series) 2017 COVID-19 VACCINE ( - 2023-2 5 season) 2024 INFLUENZA VACCINE (#1) 2024 DEPRESSION SCREENING 07/30/2024 HEPATITIS B VACCINE Aged Out No longe r eligible based on patient's age to complete this topic HIB VACCINE Aged Out No longer eligi ble based on patient's age to complete this topic HPV VACCINE Aged Out No longer eligi ble based on patient's age to complete this topic MENINGOCOCCAL (Group B) VACCINE Aged Out No longer eligible based on patient's age to complete this topic MENINGOCOCCAL VACCINE Aged Out No pascual alfonzo eligible based on patient's age to complete this topic Care Teams Marketing Production Coordinator Relationship Specialty Start Date End Date Nelli Steinberg APRN-JONATHAN [address] [id number] Nurse Practitioner 06/30/17
--- OUTSIDE RECORDS SUMMARY | 2024-09-17 13:30 | XMS_ITS | Referral Summary ---
Author Organization [facility] Address [address] [place] [address] Care Team Providers Care Unified Communications Architect Name Role Phone Nelli Steinberg APRN-BRAILLE DUPLICATING MACHINE OPERATOR Unavailable [phone] Source Comments [facility],non-owned Affiliates and Associated Physician Practices is amultiple site organization consisting of ambulatory clinics and hospital sitesin [place], [place], [place] and [place]. This disclosure is being madepursuant to the Care Everywhere program and may not contain all information available regarding this patient. Last updated 18.[facility] Allergies No known active allergies Medications * [...] Comments Blood Pressure 140/90 07/29/2018 11:17 AM DIMENSION SPECIFICATION INSPECTOR Pulse 69 07/29/2018 11:17 AM DIMENSION SPECIFICATION INSPECTOR Temperature 36.7 C (98.1 F) 07/29/2018 11:17 AM DIMENSION SPECIFICATION INSPECTOR Respiratory Rate 16 07/29/2018 11:17 AM DIMENSION SPECIFICATION INSPECTOR Oxygen Saturation 99% 07/29/2018 11:17 AM DIMENSION SPECIFICATION INSPECTOR Inhaled Oxygen Concentration - - Weight 56.2 kg (124 lb) 07/29/2018 11:17 AM DIMENSION SPECIFICATION INSPECTOR Height 160 cm (5' 3 ) 07/29/2018 11:17 AM DIMENSION SPECIFICATION INSPECTOR Body Mass Index 21.97 07/29/2018 11:17 AM DIMENSION SPECIFICATION INSPECTOR Plan of Treatment Not on file Care Teams Unified Communications Architect Relationship Specialty Start Date End Date Nelli Steinberg APRN-JONATHAN [address] [phone] Nurse Practitioner 06/30/17
--- OUTSIDE RECORDS SUMMARY | 2024-09-17 13:30 | XMS_ITS | Clinical Summary ---
Author Organization [facility] Address [address] [place] [address] Care Team Providers Care Mechanical Design Engineer Name Role Phone Timurlyle Nelli URENA Primary Care Provider [phone] Allergies No known active allergies Medications benazepril (LOTENSIN) 40 mg tablet Take 1 tablet (40 mg total) by mouth daily 3 8 Active calcium carbonate-deyvi min D3 (CALCIUM 600 + D,3,) 1500 mg (600 mg elemental) -200 units per tablet Take by mouth Calcium 600 mg daily + Vitamin D 1000 international units daily Active clonazePAM (KlonoPIN) 0.5 mg tablet 0 8 Active clopidogrel (PLAVIX) 75 mg tablet Take 1 tablet (75 mg total) by mouth Active escitalopram (LEXAPRO) 10 mg tablet 2 8 Active pravastatin (PRAVACHOL) 20 mg tablet Take 1 tablet (20 mg total) by mouth Active traMADol (ULTRAM) 50 mg tablet 0 9 Active cholecalcifero l (VITAMIN D-3) 1,000 unit tablet Take 1 tablet (1,000 Units total) by mouth daily Active ibuprofen (ADVIL,MOTRIN) 600 mg tablet ibuprofen [address] Active [address] (PROTONIX) 40 mg EC tablet pantoprazole 40 mg tablet,delayed release Active scopolamine 1 mg over 3 days patch 3 day Transderm-Scop 1.5 mg transdermal patch (1 mg over 3 days) Apply 1 patch every 72 hours by transdermal route. Active sertraline (ZOLOFT) 50 mg tablet sertraline 50 mg tablet Active polyethylene glycol (GoLYTELY) 236-22.74-6.74 -5.86 gram solution TriLyte With Flavor Packets 420 gram oral solution Active valACYclovir (VALTREX) 1 gram tablet valacyclovir 1 gram tablet Active calcium carbonate (CALCIUM 600 ORAL) Take by mouth Active promethazine-D M (PROMETHAZINE- DM) 1.25-3 mg/mL syrup TAKE 5 ML BY MOUTH EVERY 4 HOURS NEEDED FOR 10 DAYS 3 Active Active Problems Problem Noted Date Diagnosed Date Age-related osteoporosis wit hout current pathological fracture 05/15/2018 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 Family History Medical History Relation Name Comments Kyphosis Mother Osteoporosis Mother Broken bones Neg Hx Hip fracture Neg Hx Scoliosis Neg Hx Relation Name Status Comments Mother Social History Tobacco Use Types Packs/Day Years Used Date Smoking Tobacco: Former Smokeless Tobacco: Never Personal Safety Answer Date Recorded Getting School Help Needed Not on file 08/23 Comments Unknown Sex and Gender Information Value Date Recorded Sex Assigned at Not on file Legal Sex Female 6:35 AM CATHODIC PROTECTION TECHNICIAN Gender Identity Female 04/28/2021 1:18 PM CDT Sexual Orientation Straight 04/28/2021 1: 18 PM CDT Obstetrics History Last Filed Vital Signs Vital Sign Reading Time Taken Comments Blood Pressure 158/84 11/24/2022 12:41 PM CDT Pulse 66 11/24/2022 12:41 PM CDT Temperature 36.3 C (97.4 F) 11/24/2022 12:41 PM CDT Respiratory Rate 18 11/24/2022 12:41 PM CDT Oxygen Saturation 98% 11/24/2022 12:41 PM CDT Inhaled Oxygen Concentration - - Weight 53.5 kg (118 lb) 03/18/2024 9:37 AM CDT Height 158.1 cm (5' 2.25 ) 03/18/2024 9:37 AM CD T Body Mass Index 21.41 03/18/2024 9:37 AM CDT Plan of Treatment Health Maintenance Due Date Last Done Comments Depression Screening 1940 Fall Risk Assessment 1940 DTaP/Tdap/Td Vaccine (1 - Tdap) 1953 Hepatitis B Screening 1960 Zoster Vaccine (1 of 2) 1992 Well Visit 65+ 11/10/2007 Influenza Vaccine (#1) 2024 , 05/12/2019, 05/08/2019, Additional history exists Osteoporosis Screening-Bone Density Scan 09/12/2025 09/12/2023, 09/12/2022, 09/12/2022, Additional history exists Pneumococcal vaccine 65+ Completed 01/06/2019, 03/01 Procedures Procedure Name Priority Date/Time Associated Diagnosis Comments DEXA TBS AXIAL SKELETON BONE DENSITY 1 OR MORE SITES Schedule Routine, Read Routine (OP Routine) 09/12/2023 1:21 PM CATHODIC PROTECTION TECHNICIAN Age-related osteoporosis without current pathological fracture from Last 3 Months or Most Recently Relevant to Health Maintenance Results * Dexa TBS Axial Skeleton Bone Density 1 or more sites (09/12/2023 1:21 PM CATHODIC PROTECTION TECHNICIAN) Anatomical Region Laterality Modality Wrist, Body N/A Radiographic Brie ging Narrative 09/12/2023 2:01 PM CATHODIC PROTECTION TECHNICIAN Patient Name: Rosanne Hilario Date of : 1940 Date of scan: 09/12/2023 Bone mineral density was performed on a Hologic Discovery Densitometer. Based on machine cross-calibration and precision studies the least significant changes of this densitometer is 0.024 g/cm2 at the spine, 0.020 g/cm2 at the total proximal femur, and 0.014g/cm2 at the forearm. HISTORY: This is a 82 y.o. postmenopausal female with a history of osteoporosis, ulcerative colitis, and vitamin D deficiency. She reports that she has quit smoking. She has never used smokeless tobacco. Currently on treatment with calcium, vitamin D, zoledronic acid (Reclast), and anticoagulants, previously treated with alendronate (Fosamax), risedronate (Actonel), ibandronate (Boniva), denosumab (Prolia), and hormone replacement therapy, and current complaint of back pain, neck pain, and leg pain. INDICATIONS: Menopause status, treatment monitoring, vitamin D deficiency, and history of osteoporosis. FINDINGS: BONE MINERAL DENSITY OF THE LUMBAR SPINE Bone Mineral Density (BMD) of the lumbar spine was measured from L1-L4 and the average density was calculated to be 0.806 gm/cm2. This corresponds to a T-score (standard deviations from the mean of young adults) of -2.2. When compared to the previous study of 09/12/2022 there has been no significant changes in bone density. BONE MINERAL DENSITY OF THE PROXIMAL FEMUR Bone Mineral Density (BMD) of the left hip total was found to be 0.642 gm/cm2. This corresponds to a T-score standard deviations from the mean of young adults of -2.5. Femoral neck is 0.589 gm/cm2 with a T-score (standard deviations from the mean of young adults) of -2.3. When compared to the previous study of 09/12/2022 there has been a -0.032 gm/cm (-4.7%) decrease in bone density that is considered significant. SUMMARY: Bone mineral density shows evidence of osteoporosis and marked increase risk of fracture. There has been a significant decrease in bone density since previous measurement. The lumbar spine Trabecular Bone Score is 1.281 which suggests partially degraded bone microarchitecture compared to the general population. Final decisions regarding diagnostic or therapeutic recommendations should include BMD, TBS, additional clinical risk factors as well the clinical context of the patient. Please see attached TBS results for further details. ADDITIONAL COMMENTS: Postmenopausal Women and Men Over 50: Diagnostic criteria: Osteoporosis: BMD at or below -2.5 T-score; Osteopenia (low bone mass): BMD between -1.0 and -2.5 T-score. If the patient has a history of a fragility fracture, a fracture that occurred with trauma equivalent to a fall from a standing position or less, then the diagnosis is osteoporosis regardless of bone density. The history and data sections of the bone mineral density scan were prepared by Jada Warren(Renetta) GAY who is accredited by the International Society of Clinical Densitometry. The overall patient assessment and scan interpretation were performed by Cathy Del Valle MD who is certified by the International Society of Clinical Densitometry. [id number] Cathy Del Valle MD IMG DXA PROCEDURES Final Resu lt from Last 3 Months or Most Recently Relevant to Health Maintenance Insurance MEDICARE [facility] MEDICARE [facility] COMMERCIAL GENERIC [employer]ANCE [email or web address] Care Teams Mechanical Design Engineer Relationship Specialty Start Date End Date Nelli Steinberg NP [address] [place] [id number] PCP - General Nurse Practitioner 03/18/24
--- OUTSIDE RECORDS SUMMARY | 2024-09-17 13:30 | XMS_ITS | Continuity of Care Document ---
Author Organization [facility] Address [address] [place] [address] Phone Care Team Providers Care Fish And Game Club Manager Name Role Phone Vikash Tovar Unavailable Unavailable Procedures Procedure Date Eye Exam & Treatment Refraction Visual Field Examination-Professional Ap r--2009 Visual Field Examination(s) Office/outpatient Visit, Est Optic Nerve Head Eval No Script Fundus Photography W/ Report Visual Field Examination-Professional Ap r--2008 Visual Field Examination(s) Eye Exam & Treatment Optic Nerve Head Eval No Script Refraction Post-op Follow-up Visit After Cataract Laser Surgery Eye Exam Established Pt Eye Exam & Treatment Refraction Advance Directives Directive Yes / No Effective Date File Name No Information Encounters Encounter Description Practice Location Reason(s) For Visit Diagnoses Date Provider Providers Copied on Encounter [facility], [address] [place] [address] [address], [place], [place], [id number], [place] tel:[phone] SEC [facility] No Information Apr-08 03-201 0 [place] [facility] [place] , [address], [place], [address], [place]. tel:[phone] [facility], [address], [place], [place], [address], [place] tel:[phone] SEC [facility] No Information Oct-2 7-201 0 [place]. [address] [place], [place] [address] [address] , [address], [place], [place], [facility], . tel:[phone] Referring Provider: Vikash Munguia, [facility] [address], [place], [place], [facility]. tel:[phone] [facility], [address] [place] [address] [address], [place], [place], [id number], tel:[phone] [facility] [place] No Information 1 5-201 0 [place] [address], [address], [place], [place], [facility], [place]. tel:[phone] Referring Provider: Vikash Munguia, [facility] [address], [place], [place], [facility]. tel:[phone] Office/outpat ient Visit, [facility], [address] [place] [address] [address], [place], [place], [id number], [place] tel:[phone] SEC [facility] [place] No Information Apr-3 0-200 9 [place] [place], [place] [address]ate [address], [address], [place], [place], [facility], [place]. tel:[phone] Referring Provider: Vikash Munguia, [facility] [address], [place], [facility]. tel:[phone] [facility], [address] [place] [address] [address], [place], [place], [id number], [place] tel:[phone] SEC [facility] [place] No Information 2 7-200 9 [place]. [facility] [address], [address], [place], [facility], [place]. tel:[phone] Referring Provider: Vikash Munguia, [facility] [address], [place], [facility]. tel:[phone] [facility], [address], [place], [place], [address], [place] tel:[phone] SEC [facility] No Information 9 [place]. [facility] , [address], [place], [facility], [place]. tel:[phone] Referring Provider: Vikash Munguia, [place] [address], [place], [facility]. tel:[phone] [facility], [address] [place] [address] [address], [place], [place], [address], [place] tel:[phone] SEC [facility] No Information 3 9 [place]. [address] [facility] , [address], [place], [facility], [place]. tel:[phone] [facility], [address], [place], [place], [address], [place] tel:[phone] SEC [facility] No Information 8 [place]. [facility] , [address], [place], [address], [place]. tel:[phone] [facility], [address], [place], [place], [address], [place] tel:[phone] [facility] No Information 8 [place]. [facility] , [address], [place], [address], [place]. tel:[phone] Referring Provider: Vikash Munguia, [place] [facility] [address], [place], [facility]. tel:[phone] [facility], [address], [place], [place], [address], [place] tel:[phone] SEC [facility] No Information 8 [place]. [address] [facility] , [address], [place], [address], [place]. tel:[phone] [facility], [address], [place], [place], [address], [place] tel:[phone] SEC [facility] No Information 8 [place]. [address] [facility] , [address], [place], [address], [place]. tel:[phone] Family History Family Member Type Diagnosis Age At Onset No Information Payers Payer name Insurance type Covered green party ID Authorjose carlosa jane(s) [place] [id number] [facility] [id number] Social History Type Description Quantity Date Captured Comments Sex Female Smoking Status No Information Chief Complaint And Reason For Visit No Information Reason For Referral Reason For Referral No Information History Of Present Illness Encounter Date Complaint History Of Prese nt Illness No Information Functional Status Date Functional Assessmen t No Information Instructions Date Instruction Additional Infor mation No Information Assessments Type Assessment Date No Information Patient Care Teams Name Effective Dates (start - stop) Status Members No Information
--- OUTSIDE RECORDS SUMMARY | 2024-09-17 13:30 | XMS_ITS | Referral Summary ---
Author Organization [facility] Address [address] [place] [address] Care Team Providers Care Rice Cleaning Machine Tender Name Role Phone Timurlyle Nelli URENA Primary Care Provider [phone] Allergies No known active allergies Medications benazepril [...] hout current pathological fracture 05/15/2018 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 Social History Tobacco Use Types Packs/Day Years Used Date Smoking Tobacco: Former Smokeless Tobacco: Never Personal Safety Answer Date Recorded Getting School Help Needed Not on file 08/23 Comments Unknown Sex and Gender Information Value Date Recorded Sex Assigned at Not on file Legal Sex Female 6:35 AM MECHANICAL ARTIST Gender Identity Female 04/28/2021 1:18 PM CDT Sexual Orientation Straight 04/28/2021 1: 18 PM CDT Last Filed Vital Signs Vital Sign Reading [...] 03/18/2024 9:37 AM CDT Plan of Treatment Not on file Procedures Procedure Name Priority Date/Time Associated Diagnosis Comments DEXA TBS AXIAL SKELETON BONE DENSITY 1 OR MORE SITES Schedule Routine, Read Routine (OP Routine) 09/12/2023 1:21 PM MECHANICAL ARTIST Age-related osteoporosis without current pathological fracture from Last 3 Months or Most Recently Relevant to Health Maintenance Results * Dexa TBS Axial Skeleton Bone Density 1 or more sites (09/12/2023 1:21 PM MECHANICAL ARTIST) Anatomical Region Laterality Modality Wrist, Body N/A Radiographic Brie ging Narrative 09/12/2023 2:01 PM MECHANICAL ARTIST Patient Name: Rosanne Hilario Date of : 1940 Date of scan: 09/12/2023 Bone mineral density was performed on a [employer] Discovery Densitometer. Based on machine cross-calibration and [...] mineral density scan were prepared by Jada Crystal) GAY who is accredited by the International Society of Clinical Densitometry. The overall patient assessment and scan interpretation were performed by Cathy Del Valle MD who is certified by the International Society of Clinical Densitometry. [id number] Cathy Del Valle MD IMG DXA PROCEDURES Final Resu lt from Last 3 Months or Most Recently Relevant to Health Maintenance Insurance MEDICARE [facility] MEDICARE [facility] [employer] GENERIC [employer] INSURANCE COMPANY MEDICARE [facility] Member Subscriber Plan / Payer ( fective 2022-Present) Name:Rosanne Hilario Member ID:[id number] Relation to Subscriber:Self Name:Rosanne Hilario Ezra Subscriber ID:[id number] Payer ID:[id number] Type:COMMERCIAL Address: [facility] [id number] Care Teams Rice Cleaning Machine Tender Relationship Specialty Start Date End Date Nelli Steinberg NP [address] [place] [address] PCP - General Nurse Practitioner 03/18/24
[2024-09-17 13:55] LABS: Hematocrit 42.1 % (37.0-47.0); Hemoglobin 13.5 g/dL (12.0-15.0); Mean Corpuscular HGB Conc 32.1 g/dl (32-36); Mean Corpuscular Hemoglobin 30.3 pg (26-34); Mean Corpuscular Volume 94.4 fl (80-100); Mean Platelet Volume 9.8 fl (7.4-10.4); Platelet Count Result 201 k/mm3 (150-375); Red Blood Count 4.46 M/mm3 (4.2-5.4); Red Cell Distribution Width 13.3 % (11.5-14.5); White Blood Count 6.5 K/mm3 (4.5-10.0)
[2024-09-17 18:53] LABS: Iron 86 ug/dL (37-170)
[2024-09-17 18:56] LABS: Anion Gap 7 mmol/L (4-12); Blood Urea Nitrogen 19 mg/dL (7-17); Calcium 8.9 mg/dL (8.4-10.2); Carbon Dioxide 29 mmol/L (22-30); Chloride 103 mmol/L (98-107); Estimated Glomerular Filt Rate 49; Glucose 84 mg/dL (65-110); Potassium 4.5 mmol/L (3.4-5.0); Sodium 139 mmol/L (137-145)
[2024-09-17 19:06] LABS: Percent Iron Saturation 35 % (20-50)
[2024-09-17 20:04] LABS: Folic Acid 16.2 ng/mL (2.76->20)
== END 2024-09-17 13:26 | disposition home or self-care (01) ==
LOC: ANHLAB 13:27
PROVIDERS: PCP Nurse Practitioner Adult Health; Visit Provider Internal Medicine Hematology & Oncology
DX: D64.9 Anemia, unspecified (principal)
CPT/HCPCS: 36415; 80048; 82607; 82728; 82746; 83540; 83550; 85027

== ENCOUNTER 2024-09-23 12:01 | Outpatient (CLI) | payer MEDICARE, SELFPAY ==
--- NOTE | ~2024-09-23 | XR_ITS ---
Lumbosacral Spine: AP and lateral views Clinical History: Pain Findings: There is mild levoscoliosis. There is advanced degenerative disc narrowing from L2 through S1. There is severe facet arthropathy throughout the lumbar spine. The sacroiliac joints are normally outlined. Impression: Severe, diffuse degenerative spondylosis, as above. Reviewed, dictated and finalized at [facility]. AULIC PRESS IN OPERATOR Impression: Severe, diffuse degenerative spondylosis, as above.
--- OUTSIDE RECORDS SUMMARY | 2024-09-23 13:55 | XMS_ITS | Referral Summary ---
Author Organization [facility] Address [address] [place] [address] Care Team Providers Care Electrical Tester Name Role Phone Timurlyle Nelli URENA Primary Care Provider [phone] Allergies No known active allergies Medications benazepril [...] on file Legal Sex Female 6:35 AM PROVIDER RELATIONS CONSULTANT Gender Identity Female 04/28/2021 1:18 PM CDT [...] Read Routine (OP Routine) 09/12/2023 1:21 PM PROVIDER RELATIONS CONSULTANT Age-related osteoporosis without current pathological fracture from Last 3 Months or Most Recently Relevant to Health Maintenance Results * Dexa TBS Axial Skeleton Bone Density 1 or more sites (09/12/2023 1:21 PM PROVIDER RELATIONS CONSULTANT) Anatomical Region Laterality Modality Wrist, Body N/A Radiographic Brie ging Narrative 09/12/2023 2:01 PM PROVIDER RELATIONS CONSULTANT Patient Name: Rosanne Hilario Date of : 1940 Date of scan: 09/12/2023 Bone mineral density was performed on a Holo[employer] Discovery Densitometer. Based on machine cross-calibration and [...] by the International Society of Clinical Densitometry. [id number] Cathy Del Valle MD IMG DXA PROCEDURES Final Resu lt from Last 3 Months or Most Recently Relevant to Health Maintenance Insurance MEDICARE [facility] MEDICARE [facility] COMMERCIAL GENERIC [employer] INSURANCE COMPANY MEDICARE [facility] Member Subscriber Plan / Payer ( fective 2022-Present) Name:Rosanne Hilario Member ID:[id number] Relation to Subscriber:Self Name:Rosanne Hilario Ezra Subscriber ID:[id number] Payer ID:[id number] Type:COMMERCIAL Address: [facility] [id number] Care Teams Electrical Tester Relationship Specialty Start Date End Date Nelli Steinberg NP [address] [place] [address] PCP - General Nurse Practitioner 03/18/24
--- OUTSIDE RECORDS SUMMARY | 2024-09-23 13:55 | XMS_ITS | Clinical Summary ---
Author Organization [facility] adrian Aguilar Address [address] [place] [address] Care Team Providers Care Needle Bar Molder Name Role Phone Unavailable Primary Care Provider [...] TABLET BY MOUTH ONCE DAILY 0 Active pantoprazole (PROTONIX) 40 mg Tablet, Delayed Release (E.C.) Take 40 mg by mouth daily. Active Active Problems Problem Noted Date Diagnosed Date Iron deficiency 05/25/2020 History of TIA (transient ischemic attack) and s troke 05/25/2020 Encounters Date Type Department Care Team Description 09/19/2024 10:00 AM FOOD QUALITY TESTER Office Visit [facility] Oncology and Hematology [place] [place] [address] Brenden Jules MD Chronic anemia (Primary Dx) from Last 3 Months Family History Medical History Relation Name Comments [...] Sign Reading Time Taken Comments Blood Pressure 136/86 09/19/2024 9:49 AM FOOD QUALITY TESTER man ual Pulse 89 09/19/2024 9:44 AM FOOD QUALITY TESTER Temperature 37.2 C (99 F) 09/19/2024 9:44 AM FOOD QUALITY TESTER Respiratory Rate 15 09/19/2024 9:44 AM FOOD QUALITY TESTER Oxygen Saturation 96% 09/19/2024 9:44 AM FOOD QUALITY TESTER Inhaled Oxygen Concentration - - Weight 55.2 kg (121 lb 9.6 oz) 09/19/2024 9:44 A M FOOD QUALITY TESTER Height 157.5 cm (5' 2 ) 05/03/2022 2:48 PM CDT Body Mass Index 22.24 05/03/2022 2:48 PM CDT Plan of Treatment Upcoming Encounters Date Type Department Care Team (Late st Contact Info) Description 03/24/2025 11:00 AM CDT Office Visit [facility] Oncology and Hematology [place] [address] [place] [phone] Brenden Jules MD [address] [address] Health Maintenance Due Date Last Done [...] Discontinued Insurance MEDICARE PART A AND B [facility] SUPP [facility] INS SUPP ILENE STALLINGS [id number]
--- OUTSIDE RECORDS SUMMARY | 2024-09-23 13:55 | XMS_ITS | Clinical Summary ---
Author Organization [facility] Address [address] [place] [address] Care Team Providers Care Industrial Electrician Name Role Phone Nelli Steinberg APRN-RESEARCH ASSISTANT MEMBER Unavailable [phone] [facility],non-owned Affiliates and Associated Physician Practices is amultiple site organization consisting of ambulatory clinics and hospital sitesin [place], [place], [place] and [place]. This disclosure is being madepursuant to the Care Everywhere program and may not contain all information available regarding this patient. Last updated 18.[employer] Allergies No known active allergies Medications * [...] Comments Blood Pressure 140/90 07/29/2018 11:17 AM SHARE HOLDER Pulse 69 07/29/2018 11:17 AM SHARE HOLDER Temperature 36.7 C (98.1 F) 07/29/2018 11:17 AM SHARE HOLDER Respiratory Rate 16 07/29/2018 11:17 AM SHARE HOLDER Oxygen Saturation 99% 07/29/2018 11:17 AM SHARE HOLDER Inhaled Oxygen Concentration - - Weight 56.2 kg (124 lb) 07/29/2018 11:17 AM SHARE HOLDER Height 160 cm (5' 3 ) 07/29/2018 11:17 AM SHARE HOLDER Body Mass Index 21.97 07/29/2018 11:17 AM SHARE HOLDER Plan of Treatment Health Maintenance Due Date [...] age to complete this topic Care Teams Industrial Electrician Relationship Specialty Start Date End Date Nelli Steinberg APRN-JONATHAN [address] [phone] Nurse Practitioner 06/30/17
--- OUTSIDE RECORDS SUMMARY | 2024-09-23 13:55 | XMS_ITS | Referral Summary ---
Author Organization [email or web address] Address [address] [place] [address] Care Team Providers Care Price Accuracy Supervisor Name Role Phone Nelli Steinberg APRN-KILN CAR UNLOADER Unavailable [phone] Source Comments [email or web address],non-owned Affiliates and Associated Physician Practices is amultiple site organization consisting of ambulatory clinics and hospital sitesin [place], [place], [place] and [place]. This disclosure is being madepursuant to the Care Everywhere program and may not contain all information available regarding this patient. Last updated 18.[email or web address] Allergies No known active allergies Medications * [...] Comments Blood Pressure 140/90 07/29/2018 11:17 AM CLINICAL SECRETARY Pulse 69 07/29/2018 11:17 AM CLINICAL SECRETARY Temperature 36.7 C (98.1 F) 07/29/2018 11:17 AM CLINICAL SECRETARY Respiratory Rate 16 07/29/2018 11:17 AM CLINICAL SECRETARY Oxygen Saturation 99% 07/29/2018 11:17 AM CLINICAL SECRETARY Inhaled Oxygen Concentration - - Weight 56.2 kg (124 lb) 07/29/2018 11:17 AM CLINICAL SECRETARY Height 160 cm (5' 3 ) 07/29/2018 11:17 AM CLINICAL SECRETARY Body Mass Index 21.97 07/29/2018 11:17 AM CLINICAL SECRETARY Plan of Treatment Not on file Care Teams Price Accuracy Supervisor Relationship Specialty Start Date End Date Nelli Steinberg APRN-JONATHAN [address] [address] Nurse Practitioner 06/30/17
--- OUTSIDE RECORDS SUMMARY | 2024-09-23 13:55 | XMS_ITS | Clinical Summary ---
Author Organization [facility] Address [address] [place] [address] Care Team Providers Care Health Data Administrator Name Role Phone Timurlyle Nelli URENA Primary Care Provider [phone] Allergies No known active allergies Medications benazepril [...] on file Legal Sex Female 6:35 AM BLADE BENDER FURNACE TENDER Gender Identity Female 04/28/2021 1:18 PM CDT [...] Read Routine (OP Routine) 09/12/2023 1:21 PM BLADE BENDER FURNACE TENDER Age-related osteoporosis without current pathological fracture from Last 3 Months or Most Recently Relevant to Health Maintenance Results * Dexa TBS Axial Skeleton Bone Density 1 or more sites (09/12/2023 1:21 PM BLADE BENDER FURNACE TENDER) Anatomical Region Laterality Modality Wrist, Body N/A Radiographic Brie ging Narrative 09/12/2023 2:01 PM BLADE BENDER FURNACE TENDER Patient Name: Rosanne Hilario Date of : [...] by the International Society of Clinical Densitometry. [id number] Cathy Del Valle MD IMG DXA PROCEDURES Final Resu lt from Last 3 Months or Most Recently Relevant to Health Maintenance Insurance MEDICARE [facility] MEDICARE [facility] COMMERCIAL GENERIC [employer] Care Teams Health Data Administrator Relationship Specialty Start Date End Date Nelli Steinberg NP [address] [place] [id number] PCP - General Nurse Practitioner 03/18/24
--- OUTSIDE RECORDS SUMMARY | 2024-09-23 13:55 | XMS_ITS | CONTINUITY OF CARE DOCUMENT ---
Author Name yael conley Address Unknown Organization [facility] Address [address] [facility] [address] [place] [address] Phone [phone] Care Team Providers Care Sleeper Cutter Name Role Phone Rm HARDWICK, Annabel Unavailable LINDSAY MORRIS MD Unavailable [phone] ANABELA CORNEJO Unavailable PROBLEMS Condition Status Date Provider Notes Hx of TIA active Josef Ahmedzai Hypertension active Josef Ahmedzai Hyperlipidemia active Josef Ahmedzai Iron deficiency active Josef Ahmedzai Dyspnea on exertion active Josef Ahmedzai Fatigue active Josef Ahmedzai Systolic murmur active Josef Ahmedzai Chest discomfort--stress nuc nl, 02/2023 active 03/05 Annabel Abdalla MD Palpitations active Josef Ahmedzai SVT, paroxysmal active Annabel Abdalla MD Cardiology examination active Josefkaitlynn Vanessazai ENCOUNTERS Date Type Provider Location Encounter Diag nosis 4 - 5 In-person encounter Office Visit Annabel Abdalla MD [facility] Cardiology examination 5 - 5 In-person encounter Office Visit Annabel Abdalla MD [facility] 6 - 6 In-person encounter Office Visit Annabel Abdalla MD [facility] Chest discomfort--stress nuc nl, 02/2023SVT, paroxysmal 0 7 - 7 In-person encounter Office Visit Annabel Abdalla MD [facility] Hx of TIAHypertensionHyperlipidemiaIron deficiencyDyspnea on exertionFatigueSystolic murmurChest discomfort--stress nuc nl, alpitations VITAL SIGNS Date Observation Value Provider Body Mass Index (Ratio) 22.31 kg/m2 Sachin Abdalla MD blood pressure, diastolic 98 mm[Hg] seymourglenroy Osorio blood pressure, systolic 159 mm[Hg] seymour arguelles Osorio oxygen saturation, oximetry 97 % [facility] pulse rate 89 /min [facility] respiratory rate E&M 12 /min [facility] weight E&M 122 [lb_av] [facility] height E&M 62 [in_i] [facility] blood pressure, cuff size regular [facility] Body Mass Index (Ratio) 21.76 kg/m2 Sachin Abdalla MD pulse rate 84 /min Jofernando Alfaro respiratory rate E&M 16 /min Jo [facility] oxygen saturation, oximetry 100 % Jo Angelina weight E&M 119 [lb_av] Jo Posley blood pressure, cuff size regular Le slyanely Posley blood pressure, diastolic 80 mm[Hg] Le slie Posley blood pressure, systolic 152 mm[Hg] Les lie Posley height E&M 62 [in_i] Jo Posley Body Mass Index (Ratio) 22.49 kg/m2 Sachin Abdalla MD blood pressure, cuff size regular [facility] blood pressure, diastolic 97 mm[Hg] Ja rret blood pressure, systolic 150 mm[Hg] Jar ret pulse rate 76 /min See y respiratory rate E&M 12 /min See oxygen saturation, oximetry 99 % See weight E&M 123 [lb_av] See y height E&M 62 [in_i] See y Body Mass Index (Ratio) 23.04 kg/m2 Sachin Abdalla MD blood pressure, diastolic 97 mm[Hg] Lisha [employer]kLogic blood pressure, systolic 160 mm[Hg] Maggy kLogic pulse rate 71 /min See blood pressure, cuff size small Yoshi blood pressure, diastolic 97 mm[Hg] Ja rret blood pressure, systolic 160 mm[Hg] Jar respiratory rate E&M 12 /min See oxygen saturation, oximetry 99 % See height E&M 62 [in_i] See y weight E&M 126 [lb_av] See y ALLERGIES No Known Drug Allergies HISTORY OF MEDICATION USE Medication Status Instructions Dates Provider Indications Com ments pantoprazole 40 mg tablet,delayed release (DR/EC) active TAKE 1 TABLET BY MOUTH EVERY DAY 4 Josef Beauchamp Plavix 75 mg tablet active pravastatin 20 mg tablet active benazepril 40 mg tablet active Lexapro 10 mg tablet active clonazepam 0.5 mg tablet active See pantoprazole 40 mg tablet,delayed release (DR/EC) completed - 4 Josef Beauchamp aspirin unspecified unspecified active Calcium 600 600 mg calcium (1,500 mg) tablet active vitamin A23-sddfb acid 500-400 mcg tablet active See SOCIAL HISTORY Date Observation Value Provider cigarette use yes Josef Vanessadaniel smoking status Former smoker Josef Brito seymour cigarette use yes Josef Britoseymour smoking status Former smoker oJsef Brito seymour cigarette use yes Josef Britoseymour smoking status Former smoker Josef Brito i social history E&M S moking History: Rosas guidry is a former smoker. Josef Beauchamp cigarette use yes See Jonescharlie ay smoking status Former smoker See Manjarrez rday social history reviewed E&M revi ewed - no changes required Josefkaitlynn Britoseymour INSURANCE PROVIDERS Payer name Policy type / Coverage type Brad red alliance party ID MEDICO INS Commercial insurance [employer] 000 [id number] [place] MEDICARE Medicare [id number] [facility] Commercial insurance [employer] [id number] ADVANCE DIRECTIVES Name Date DISCUSSED - NO DECISION MADE TREATMENT PLAN Date Name Performer [id number],S, Josef Brito i [id number],S, Josef Brito i [id number],S, Josef Brito i [id number],S, Josef Brito i [id number],S, Josef Brito i Cardiology: H er updated medication list for this problem includes: Benazepril 40 Mg Tablet (Benazepril) Aspirin Unspecified Unspecified (Aspirin) T his visit has been a part of the consistent, comprehensive, and ongoing management of the chronic medical condition(s) listed above for the patient. Annabel Abdalla MD Cardiology Annabel Abdalla MD Cardiology: H er updated medication list for this problem includes: Plavix 75 Mg Tablet (Clopidogrel) Benazepril 40 Mg Tablet (Benazepril) Aspirin Unspecified Unspecified (Aspirin) Annabel Abdalla MD Cardiology Annabel Abdalla MD Cardiology: H er updated medication list for this problem includes: Benazepril 40 Mg Tablet (Benazepril) Aspirin Unspecified Unspecified (Aspirin) T his visit has been a part of the consistent, comprehensive, and ongoing management of the chronic medical condition(s) listed above for the patient. Annabel Abdalla MD Cardiology: H er updated medication list for this problem includes: Pravastatin 20 Mg Tablet (Pravastatin) Josef Beauchamp Cardiology: H er updated medication list for this problem includes: Benazepril 40 Mg Tablet (Benazepril) Aspirin Unspecified Unspecified (Aspirin) Josef Beauchamp Cardiology Josef Beauchamp Cardiology: H er updated medication list for this problem includes: Plavix 75 Mg Tablet (Clopidogrel) Benazepril 40 Mg Tablet (Benazepril) Aspirin Unspecified Unspecified (Aspirin) Josef Beauchamp Cardiology Josef Beauchamp Cardiology: H er updated medication list for this problem includes: Plavix 75 Mg Tablet (Clopidogrel) Benazepril 40 Mg Tablet (Benazepril) Aspirin Unspecified Unspecified (Aspirin) Josef Beauchamp Cardiology Josef Beauchamp Cardiology Josef Joaquinmedzaseymour Cardiology Josef Ahmedzai Cardiology Josef Ahmedzai Cardiology: H er updated medication list for this problem includes: Pravastatin 20 Mg Tablet (Pravastatin) Josef Beauchamp Cardiology:BP is sat isfactory at home. BP today: 150/97 P rior BP: 160/97 (03/05/2023) Her updated medication list for this problem includes: Benazepril 40 Mg Tablet (Benazepril) Aspirin Unspecified Unspecified (Aspirin) Josef Beauchamp Cardiology Josef Ahmedzai Cardiology Josef Ahmedzai Cardiology Josef Ahmedzai Cardiology Josef Ahmedzai Cardiology Josef Emanimedzai Date Name Complete Echo Monitor - Telemetry (Mobile Cardiac) Stress Regadenoson Complete Echo HISTORY OF PROCEDURES Procedure Date Procedure Name Provider Procedure Notes S tatus Complex e/m visit add on Annabel Abdalla MD completed EKG Annabel Abdalla MD completed Complex e/m visit add on Annabel Abdalla MD completed EKG Annabel Abdalla MD completed
--- OUTSIDE RECORDS SUMMARY | 2024-09-23 13:55 | XMS_ITS | Patient Health Summary ---
Author Organization [facility] [employer] Address [address] [address] Care Team Providers Care Status Controller Name Role Phone Nelli Steinberg APRN-THIRD MILLER Unavailable [phone] Note from [facility],non-owned Affiliates and Associated Physician Practices is amultiple site organization consisting of ambulatory clinics and hospital sitesin [place], [place], [place] and [place]. This disclosure is being madepursuant to the Care Everywhere program and may not contain all information available regarding this patient. Last updated 18.[facility] Allergies No known active allergies Medications [...] Comments Blood Pressure 140/90 07/29/2018 11:17 AM BEEKEEPER Pulse 69 07/29/2018 11:17 AM BEEKEEPER Temperature 36.7 C (98.1 F) 07/29/2018 11:17 AM BEEKEEPER Respiratory Rate 16 07/29/2018 11:17 AM BEEKEEPER Oxygen Saturation 99% 07/29/2018 11:17 AM BEEKEEPER Inhaled Oxygen Concentration - - Weight 56.2 kg (124 lb) 07/29/2018 11:17 AM BEEKEEPER Height 160 cm (5' 3 ) 07/29/2018 11:17 AM BEEKEEPER Body Mass Index 21.97 07/29/2018 11:17 AM BEEKEEPER Procedures * STREP A SCREEN - POINT [...] Strep A Internal Control Present Lot # [id number] Expiration Date 01/12/2019 Throat ENTIRE THROAT (SURFACE REGION OF NECK) / Unknown 06/30/2017 [facility] - POINT OF CARE ORDERABLES * (ABNORMAL) URINALYSIS AUTO - POINT OF CARE (AMB) STL (07/02/2016 11:27 AM BEEKEEPER) Clarity UA POCT clear Color UA POCT yellow Leukocyte UA 70 Negative Nitrite UA POCT neg Negative Urobilinogen UA 0.2 0.1 - 1.0 Protein UA POCT 30 Negative pH UA 6.5 5.0 - 8.0 pH units Blood UA 2+ Negative Specific [place] UA POCT 1.005 1.002 - 1.030 Ketone UA neg Negative Bilirubin UA POCT neg Negative Glucose UA neg Negative Expiration Date 05/29/2017 Lot # [id number] QC Verified Yes Yes URINE / Unknown 07/02/2016 1 1:27 AM BEEKEEPER Shelia Lopez APRN-[facility] - POINT O F CARE ORDERABLES * CULTURE URINE (07/02/2016 11:27 AM BEEKEEPER) Urine Culture Routine Final report [facility] INSURANCE BILL Result 1 No growth [facility] INSURANCE BILL Urine URINE SPECIMEN OBTAINED BY CLEAN CATCH PROCEDURE / Unknown 07/02/2016 11:27 AM BEEKEEPER 07/03/2016 Narrative Resulting Agency Comment [facility] [address] [id number] Shelia Lopez APRN-[facility] - MICROBI OLOGY ORDERABLES [facility] INSURANCE BILL [address] [place] [address] Care Teams Status Controller Relationship Specialty Start Date End Date Nelli Steinberg APRN-CNP [address] [address] Nurse Practitioner 06/30/17
[2024-09-23 19:30] LABS: Add Urine Microscopic? NO; Appearance Urine Clear (Clear); Bilirubin Urine Negative (Negative); Blood Urine Negative (Negative); Color Urine Yellow (Yellow); Glucose Urine UA Negative (Negative); Ketones Urine Negative (Negative); Leukocyte Esterase Ur Negative LEU/UL (Negative); Nitrate Urine Negative (Negative); Protein Urine Negative (Negative); Specific Grav Ur 1.009 (1.001-1.035); Urobilinogen Urine 0.2 mg/dL (<2.0)
[2024-09-23 20:13] LABS: Free T4 Free Thyroxine 1.24 ng/dL (0.78-2.19); Vitamin D 25 Hydroxy 45.2 ng/mL
== END 2024-09-23 12:02 | disposition home or self-care (01) ==
LOC: ANHBWCLAB 12:03
PROVIDERS: PCP Nurse Practitioner Adult Health; Visit Provider Nurse Practitioner Adult Health
DX: M47.817 Spondylosis without myelopathy or radiculopathy, lumbosacral region (principal); R35.0 Frequency of micturition; R68.89 Other general symptoms and signs; E55.9 Vitamin D deficiency, unspecified
CPT/HCPCS: 36415; 72100; 81003; 82306; 84439; 84443; 87086; 87181

== ENCOUNTER 2025-01-01 11:01 | Outpatient (CLI) | payer MEDICARE, SELFPAY ==
--- NOTE | ~2025-01-01 | XR_ITS ---
XR hip LT min 2V 01/01/2025 11:13 Indication: Left hip pain Procedure: 2 views left hip Comparison: CT dated 03/06/2016 Findings: Possible subtle fracture inferior margin of the acetabulum. There is mild osteoarthritis of the left hip. There is osteitis pubis. Impression: 1: Possible fracture inferior margin of the acetabulum. Consider correlation with CT. Reviewed, dictated and finalized at location A. Impression: 1: Possible fracture inferior margin of the acetabulum. Consider correlation wi CT.
--- OUTSIDE RECORDS SUMMARY | 2025-01-01 12:08 | XMS_ITS | Clinical Summary ---
Author Organization [employer] [facility] Address [address] [place] [address] Care Team Providers Care Signal Operator Technical Name Role Phone Nelli Steinberg APRN-RN ADMISSION Unavailable [phone] Source Comments [facility],non-owned Affiliates and Associated Physician Practices is amultiple site organization consisting of ambulatory clinics and hospital sitesin [place], [place] and [place]. This disclosure is being madepursuant to the Care Everywhere program and may not contain all information available regarding this patient. Last updated [email or web address] Allergies No known active allergies Medications * Be aware that medications may not be up to date on this document. Alwaysverify current medications with the patient. clopidogrel (PLAVIX) 75 MG tablet Take 75 [...] mg by mouth at bedtime Active Calcium Carb-Cholecalci ferol (CALCIUM + D3 PO) Active aspirin (ASPIRIN) 81 MG tablet Take 81 mg by mouth once daily Active Ibandronate Sodium (BONIVA IV) Active benzonatate (TESSALON) 200 MG capsuleIndicati ons:Upper airway cough syndrome Take 1 capsule by mouth 3 times daily as needed for Cough 30 capsule 06/30/2017 Active Social History Tobacco Use Types Packs/Day Years Used Date Smoking Tobacco: Former Smokeless Tobacco: Never Comments No Sex and Gender Information Value Date Recorded Sex Assigned at Not on file Legal Sex Female 9:39 AM STATION WORKER Gender Identity Not on file Sexual Orientation Not on file Last Filed Vital Signs Vital Sign Reading Time Taken Comments Blood Pressure 140/90 07/29/2018 11:17 AM STATION WORKER Pulse 69 07/29/2018 11:17 AM STATION WORKER Temperature 36.7 C (98.1 F) 07/29/2018 11:17 AM STATION WORKER Respiratory Rate 16 07/29/2018 11:17 AM STATION WORKER Oxygen Saturation 99% 07/29/2018 11:17 AM STATION WORKER Inhaled Oxygen Concentration - - Weight 56.2 kg (124 lb) 07/29/2018 11:17 AM STATION WORKER Height 160 cm (5' 3) 07/29/2018 11:17 AM STATION WORKER Body Mass Index 21.97 07/29/2018 11:17 AM STATION WORKER Plan of Treatment Health Maintenance Due Date Last Done Comments BONE DENSITY TESTING 1942 DTAP/TDAP/TD VACCINES (1 - Tdap) 1961 PNEUMOCOCCAL VACCINE 50+ (1 of 1 - PCV) 1992 ZOSTER VACCINE (1 of 2) 1992 Respiratory Syncytial Virus (RSV) Vaccine Pt: or over 60 yrs (1 - 1-dose 75+ series) 2017 COVID-19 VACCINE ( - 2023-2 5 season) 2024 DEPRESSION SCREENING 07/30/2024 INFLUENZA VACCINE (Season Ended) 2025 HEPATITIS B VACCINE Aged Out No longe r eligible based on patient's age to complete this topic HIB VACCINE Aged Out No longer eligi ble based on patient's age to complete this topic HPV VACCINE Aged Out No longer eligi ble based on patient's age to complete this topic MENINGOCOCCAL (Group B) VACC INE SHARED DECISION-MAKING Aged Out No longer eligibl e based on patient's age to complete this topic MENINGOCOCCAL GROUPS A/C/Y/W VACCINE Aged Out No longer eligible b ased on patient's age to complete this topic Insurance MEDICARE [facility] MEDICARE Care Teams Signal Operator Technical Relationship Specialty Start Date End Date Nelli Steinberg APRN-CNP [address] [address] Nurse Practitioner 06/30/17
--- OUTSIDE RECORDS SUMMARY | 2025-01-01 12:08 | XMS_ITS | Clinical Summary ---
Author Organization [facility] Toneyharlanseymour adrian Aguilar Address [address] [place] [address] Care Team Providers Care Viscera Washer Name Role Phone Unavailable Primary Care Provider [...] Comments Blood Pressure 136/86 09/19/2024 9:49 AM TOOL SMITH man ual Pulse 89 09/19/2024 9:44 AM TOOL SMITH Temperature 37.2 C (99 F) 09/19/2024 9:44 AM TOOL SMITH Respiratory Rate 15 09/19/2024 9:44 AM TOOL SMITH Oxygen Saturation 96% 09/19/2024 9:44 AM TOOL SMITH Inhaled Oxygen Concentration - - Weight 55.2 kg (121 lb 9.6 oz) 09/19/2024 9:44 A M TOOL SMITH Height 157.5 cm (5' 2) 05/03/2022 2:48 PM CDT Body Mass Index 22.24 05/03/2022 2:48 PM CDT Plan of Treatment Upcoming Encounters Date Type Department Care Team (Late st Contact Info) Description 03/24/2025 11:00 AM CDT Office Visit [facility] Oncology and Hematology - [place] [address] [facility] [address] [place] [address] Brenden Jules MD [address] [facility] [address] [place] [address] Health Maintenance Due Date Last Done Comments DTAP/TDAP/TD VACCINES (1 - Tdap) 1961 ZOSTER VACCINE (1 of 2) 1992 RSV VACCINE (60+ or ) (1 - 1-dose 75+ series) 2017 INFLUENZA VACCINE (#1) 2024 3, 05/11/2022, 04/28/2021, Additional history exists OSTEOPOROSIS SCREENING 09/12/2028 4, 09/12/2023, 09/12/2022, Additional history exists COLORECTAL SCREENING Discontinued 11/19/2018, 11/20/19 19 Colorectal Cancer Screening Discontinued PNEUMOCOCCAL VACCINE 50+ YEARS Completed 01/06/2019 , 03/28/2011 FIT-DNA Q 3 years Discontinued FIT/FOBT Q 1 year Discontinued Flex Sig/CT Colonography Q 5 years Discontinued Insurance MEDICARE PART A AND B [facility] SUPP [place] ST[employer] [id number]
--- OUTSIDE RECORDS SUMMARY | 2025-01-01 12:08 | XMS_ITS | Data Portability ---
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 Procedures None recorded. Surgeries None recorded. Imaging XR, hip + pelvis, unilateral, 2 or 3 view 2023 024 NATACHA [facility] [place], [address], [place], [address], 4 10:11:21 XR, hip + pelvis, unilateral 2023 024 [facility] [place], [address], [place], [address], 4 23:30:46 Medication Orders ciprofloxac in 500 mg tablet 2022 023 [email or web address] [id number], [address], [place], [address], 16:05:31 Patient TargetsNo targets recorded. Patient InstructionsNo instructions recorded. Reason for Referral None Reported. Results Created Date Observation Date Name Description Value Unit Range Abnormal Flag Note LastModifiedBy Organization Detail LastModifiedTime 05/14/2005/14/2023 urina lysis , dipst ick Leukocytes (reference range: negative jos/ l) Negati ve Not Available [address] [place], [place], [address], 05/14/2023 16:06:45 05/14/2005/14/2023 urina lysis , dipst ick Nitrite (reference rage: negative mg/dl) negati ve Not Available [address] [place], [place], [address], 05/14/2023 16:06:45 05/14/2005/14/2023 urina lysis , dipst ick Urobilinogen (reference range: 0.2-1 mg/dl) 0.2 Not Available [address] [place], [place], [address], 05/14/2023 16:06:45 05/14/2005/14/2023 urina lysis , dipst ick Protein (reference range: negative mg/dl) Negati ve Not Available [address] [place], [place], [address], 05/14/2023 16:06:45 05/14/2005/14/2023 urina lysis , dipst ick pH (reference range: 5-7) 6.5 Not Available [address] [place], [place], [address], 05/14/2023 16:06:45 05/14/2005/14/2023 urina lysis , dipst ick Blood (reference range: negative Jacoby/ l) Hemoly zed: Trace Not Available [address] [place], [place], [address], 05/14/2023 16:06:45 05/14/2005/14/2023 urina lysis , dipst ick Specific Vadito (reference range: 1.005-1.030) 1.030 Not Available [address] [place], [place], [address], 05/14/2023 16:06:45 05/14/2005/14/2023 urina lysis , dipst ick Ketone (reference range: negative mg/dl) Negati ve Not Available [address] [place], [place], [address], 05/14/2023 16:06:45 05/14/2005/14/2023 urina lysis , dipst ick Bilirubin (reference range: negative mg/dl) Negati ve Not Available [address] [place], [place], [address], 05/14/2023 16:06:45 05/14/2005/14/2023 urina lysis , dipst ick Glucose (reference range: negative mg/dl) Negati ve Not Available [address] [place], [place], [address], 05/14/2023 16:06:45 05/14/2005/14/2023 urina lysis , dipst ick Appearance Clear Not Available [address] [place], [place], [address], 05/14/2023 16:06:45 05/14/2005/14/2023 urina lysis , dipst ick Color Yellow Not Available [address] [place], [place], [address], 05/14/2023 16:06:45 05/11/2005/11/2023 sandra heredia study No observ ation record ed. [address], [place], [address], 05/16/2023 12:31:15 05/19/2005/19/2023 CT, cervi leslie spine , w/o contr ast No observ ation record ed. [address], [place], [address], 05/21/2023 14:35:37 10/04/19 24 10/04/2023 US, doppl er echoc ardio gram No observ ation record ed. [email or web address] [place] [address] [facility] [address], [place], [address], 10/05/2023 09:35:57 12/23/19 24 12/23/2023 CT, hip + pelvi s, w/o contr ast No observ ation record ed. [email or web address] [facility] [address] [place], [address], 12/25/2023 14:52:19 12/24/19 24 12/24/2023 RF, alcira nce No observ ation record ed. [email or web address] [facility] [address] [place], [address], 12/25/2023 14:52:54 01/09/20 24 XR, hip + pelvi s, unila teral No observ ation record ed. [email or web address] [facility] [place] [address], [place], [address], 01/09/2024 11:44:58 03/26/20 24 XR, hip + pelvi s, unila teral , 2 or 3 view No observ ation record ed. [email or web address] [facility] [place] [address] [facility] [address], [place], [address], 03/26/2024 11:59:35 Result Notes None recorded. Problems Name Problem SNOMED Code Status Onset Date Resolution Date Notes Provider Name and Address Organization Details Recorded Time History of transient ischemic attack 542480619 Active Not Available [facility] 4 06:25:08 Arthritis of wrist 24343172667 09 Completed Not Available [facility] 3 02:51:46 Impacted cerumen 78516837 Completed Not Available [facility] 3 02:51:46 Impacted cerumen 39117019 Active 2016 Not Available [facility] 4 06:25:08 Radial styloid tenosynov itis 91861279 Completed Not Available [facility] 3 02:51:46 Degenerat ion of lumbar intervert ebral disc 19543533 Completed Not Available [facility] 3 02:51:46 Shoulder joint pain 715155789 Active 2016 Not Available [facility] 4 06:25:08 Anemia 949190125 Active Not Available [facility] 4 06:25:08 History of gastric ulcer 469980902 Active 2018 Not Available [facility] 4 06:25:08 Low back pain 903598145 Active Not Available [facility] 4 06:25:08 Menopause present 961407923 Completed Not Available [facility] 3 02:51:47 Pain in pelvis 91739679 Completed Not Available [facility] 3 02:51:47 Restless legs 52819463 Active Not Available [facility] 4 06:25:08 Vitamin D deficienc y 10908241 Active Not Available [facility] 4 06:25:08 Depressiv e disorder 41674711 Active Not Available [facility] 4 06:25:08 Hypertens tony disorder 50708797 Completed Not Available [facility] 3 02:51:47 Fever 276345323 Active 2016 Not Available [facility] 4 06:25:08 Osteoarth ritis 806165826 Active Not Available [facility] 4 06:25:08 Diverticu lar disease 923313322 Active Not Available [facility] 4 06:25:08 Carotid bruit 651427675 Completed Not Available [facility] 3 02:51:48 Decreased flexion 20281793 Completed Not Available [facility] 3 02:51:48 Anxiety 21043112 Active Not Available [facility] 4 06:25:08 Upper respirato ry infection 12974300 Completed Not Available [facility] 3 02:51:48 Lower abdominal pain 06466820 Completed Not Available [facility] 3 02:51:49 Hyperlipi demia 50020403 Active Not Available [facility] 4 06:25:08 Essential hypertens ion 98293760 Active Not Available [facility] 4 06:25:08 Colitis 55804573 Completed Not Available [facility] 3 02:51:49 Osteoporo sis 85937269 Active Not Available [facility] 4 06:25:08 Intoleran t of cold 46610531 Completed Not Available [facility] 3 02:51:49 COVID-19 553667563 Active 2019 Not Available [facility] 4 06:25:08 Fatigue 53618132 Completed Not Available [facility] 3 02:51:50 Mixed anxiety and depressiv e disorder 995128071 Active 2022 Not Available [facility] 4 06:25:08 Irritable bowel syndrome character ized by constipat ion 467558879 Active 2022 Not Available [facility] 4 06:25:08 Impacted cerumen in right ear 19097929472 15949 Active 2022 Not Available [facility] 4 06:25:08 Gastro-es ophageal reflux disease with esophagit is 386225642 Active 2022 Not Available [facility] 4 06:25:08 Dysuria 36056473 Active 2022 Not Available [facility] 4 06:25:08 Chronic low back pain 753781708 Active 2022 Not Available [facility] 4 06:25:08 Chronic neck pain 02443313474 07 Active 2022 Not Available [facility] 4 06:25:08 Pain of right hip joint 80642350736 9102 Active 2023 ELDA Hughes [place] 4 11:18:40 Closed intertroc hanteric fracture 63141121 Active 2023 ELDA Hughes [place] 4 11:46:05 Problem Notes None recorded. Procedures Surgical History Date Name Laterality Status Provider Name and Address Organization Details Recorded Time 12/24/19 24 Hip surgery completed ELDA Hughes [employer] 01/09/2024 11:17:03 09/18/19 Endoscopy completed Not Available [facility] 3 02:40:06 Cataract Surgery completed Not Available [facility] 09/27/2022 02:40:06 Colonoscopy completed Not Available [facility] 09/27/2022 02:40:06 Orthopedic Procedure completed Not Available [facility] 09/27/2022 02:40:06 Imaging Results None recorded. Procedure Notes None recorded. Medical Equipment None Reported. Allergies Allergen ID Allergen Name Allergen Category Reaction Reaction Severity Criticality Documentation Date Start Date Code Code System Note Provider Name and Address Organization Details Recorded Time 4999 Fosamax medicatio n other Not available Not available 09/27/2022 81695 5 RxNorm reflu x Not Available [facility] 03:06:02 Medications Name Sig Start Date Stop [...] 6 mg/mL suspensio n for injection active [facility]# [id number] - Not Available Not Available Not Available sucralfat [...] for injection 06/09 completed Gave 1/2cc 80mg [facility]#[id number] 2 Not Available Not Available Not [...] month by intramus cular route. 06/09 completed [facility]# [id number] Not Available Not Available Not Available ibuprofen [...] 30 days. active TAKES PRN -- DR. NICK SEO Not Available Not Available Not Available Asacol [...] Available Not Available Not Available Fluzone High-Dose 3814-9826 (PF) 180 mcg/0.5 mL intramusc ular syringe 12/11 completed Not Available Not Available Not Available Fluzone High-Dose 3456-8478 (PF) 180 mcg/0.5 mL intramusc ular syringe 10/16 completed Not Available Not Available Not Available Fluad 65yr up(PF)45 mcg(15 mcgx3)/0. 5 mL intramusc ular syringe PHARMACI ST ADMINIST ERED IMMUNIZA TION ADMINIST ERED AT TIME OF DISPENSI NG 11/11 completed Not Available Not Available Not Available Fluad Quad 1238-7075 (65yr up)(PF) 60 mcg (15 mcg x 4)/0.5mL IM syringe PHARMACI ST ADMINIST ERED IMMUNIZA TION ADMINIST ERED AT TIME OF DISPENSI NG 10/25 completed Not Available Not Available Not Available Paxlovid 300 mg (150 mg x 2)-100 mg tablets in a dose pack USE DIRECTED 01/08 completed Not Available Not Available Not Available Vitals Date Recorded Body height Body mass index (BMI) Body weight Provider Name and Address Organization Details Last Updated DateTime 01/09/2024 157.48 cm 22.9 kg/m2 63177.05 g ELDA Hughes [place] 01/09/2024 11:14:46 Date Recorded Body height Body mass index (BMI) Body weight Provider Name and Address Organization Details Last Updated DateTime 02/13/2024 160.02 cm 21.1 kg/m2 59859.49 g Anette Triana [facility]NA [place] 02/13/2024 14:09:59 Date Recorded Body height Body mass index (BMI) Body weight Provider Name and Address Organization Details Last Updated DateTime 03/26/2024 160.02 cm 20.9 kg/m2 52095.9 g ELDA Hughes [place] 03/26/2024 11:45:27 Date Recorded Body height Provider Name an d Address Organization Details Last Updated DateTime 05/14/2023 157.48 cm Lena Corrales C[facility] 05/14/2023 16:04:33 Date Recorded Body height Body mass index (BMI) Body weight Body temperature Heart rate Oxygen saturation Oxygen saturation in Arterial blood by Pulse oximetry Systolic blood pressure Diastolic blood pressure Provider Name and Address Organization Details Last Updated DateTime 157.48 cm 23 kg/m2 84474.6 4 g 97 [degF] 68 /min 97 % 97 % 132 mm[Hg] 78 mm[Hg] Lena tim CMA [facility] 12:22:43 Social History Question Answer Notes LastModified by [employer] Details LastModified Time Tobacco Smoking Status Former Smoker Not Available [facility] 09/27/2022 02:32:22 Do You Have An Advance Directive? Yes [id number] Information not available 09/27/2022 Are You Blind Or Do You Have Difficulty Seeing? No MIGRATION.920538 4213 Information not available 09/27/2022 What Is Your Level Of Caffeine Consumption? Occasional MIGRATION.769931 8446 Information not available 09/27/2022 How Much Tobacco Do You Chew? None MIGRATION.429844 2590 Information not available 09/27/2022 Are You Deaf Or Do You Have Serious Difficulty Hearing? Yes MIGRATION.376994 4397 Information not available 09/27/2022 Which Illicit Or Recreational Drugs Have You Used? No MIGRATION.949157 7212 Information not available 09/27/2022 What Was The Date Of Your Most Recent Tobacco Screening? 01/09/2024 [email or web address] Information not available 01/09/2024 At What Age Did You Start Smoking Tobacco? 20 Quit 30 MIGRATION.291249 7123 Information not available 09/27/2022 How Much Tobacco Do You Smoke? 1 PPW MIGRATION.808827 9619 Information not available 09/27/2022 Do You Have Difficulty Walking Or Climbing Stairs? No MIGRATION.850349 1267 Information not available 09/27/2022 Sex: Unknown Functional Status Question Answer Note LastModified by [employer] Details LastModified Time What is your level of alcohol consumption? None MIGRATION.6430214 026 Information not available 09/27/2022 Do you or have you ever used smokeless tobacco? Never used smokeless tobacco MIGRATION.8499882 026 Information not available 09/27/2022 Do you have difficulty doing errands alone? No MIGRATION.2374753 026 Information not available 09/27/2022 What is your occupation? Retired MIGRATION.3654886 026 Information not available 09/27/2022 Do you have difficulty dressing or bathing? No MIGRATION.0856841 026 Information not available 09/27/2022 Do you or have you ever used e-cigarettes or vape? Never used electronic cigarettes MIGRATION.1426582 026 Information not available 09/27/2022 What is your exercise level? None MIGRATION.4100004 026 Information not available 09/27/2022 Mental Status Question Answer Note LastModified by Organizat ion Details LastModified Time Do you have difficulty concentrating, remembering or making decisions? No MIGRATION.[id number] 6 Information not available 09/27/2022 Family History Relationship Description Onset Age of this Age Resolved Age Notes LastModified by Organization Details LastModified Time Father Malignant tumor of colon 57 [email or web address] Not available 02/12 14:04:18 Father Arthritis Not availa ble 02/13/2024 14:04:18 Mother Deep venous thrombosis [email or web address] Not available 01/27 14:04:18 Mother Arthritis [email or web address] Not availa ble 02/13/2024 14:04:18 Mother Heart disease MIGRATION.842 [id number] Not available 09/27/2022 02:40:12 Mother Myocardial infarction 86 [id number].781 [id number] Not available 09/27/2022 02:40:12 Brother Renal dialysis [email or web address] Not available 02/12 14:04:18 Brother Renal dialysis [email or web address] Not available 02/12 14:04:18 Medical History Condition Response ARTHRITIS Y USE OF BLOOD THINNERS Y DIZZINESS Y HEARTBURN / REFLUX Y HYPERTENSION Y ANXIETY DISORDER Y OSTEOPOROSIS Y GOUT Y DEPRESSION (INCLUDING POST ) Y BOWEL PROBLEMS Y BACK / NECK PROBLEMS Y OSTEOARTHRITIS Y STROKE/TIA Y Gynecological HistoryNo gynecological history recorded. Obstetrics History GPAL:G 0 P 0 0 0 0 Immunizations Vaccine Type Date Status Note Provider Nam e and Address Organization Details Recorded Time Influenza, high-dose, trivalent, PF 7 completed Not Available [facility] 08/22/2023 06:25:09 COVID-19, mRNA, LNP-S, PF, 100 mcg/0.5mL dose or 50 mcg/0.25mL dose 1 completed Not Available [facility] 08/22/2023 06:25:09 COVID-19, mRNA, LNP-S, PF, 100 mcg/0.5mL dose or 50 mcg/0.25mL dose 1 completed Not Available [facility] 08/22/2023 06:25:09 COVID-19, mRNA, LNP-S, PF, 100 mcg/0.5mL dose or 50 mcg/0.25mL dose 1 completed Not Available [facility] 08/22/2023 06:25:09 Influenza, split virus, quadrivalent, preservative 0 completed Not Available [facility] 08/22/2023 06:25:09 Influenza, split virus, quadrivalent, preservative 9 completed Not Available [facility] 08/22/2023 06:25:09 Influenza, split virus, quadrivalent, preservative 8 completed Not Available [facility] 08/22/2023 06:25:09 Influenza, split virus, trivalent, preservative 6 completed Not Available [facility] 08/22/2023 06:25:09 Influenza, split virus, trivalent, preservative 5 completed Not Available [facility] 08/22/2023 06:25:09 Influenza, split virus, trivalent, preservative 4 completed Not Available [facility] 08/22/2023 06:25:09 pneumococcal polysaccharide PPV23 1 completed Not Available [facility] 08/22/2023 06:25:09 Influenza, split virus, trivalent, preservative 1 completed Not Available [facility] 08/22/2023 06:25:09 Influenza, high-dose, quadrivalent, PF 2 completed [facility] Available [facility] 08/22/2023 06:25:09 Influenza, high-dose, quadrivalent, PF 1 completed Not Available [facility] 08/22/2023 06:25:09 Pneumococcal conjugate PCV 13 9 completed Not Available [facility] 08/22/2023 06:25:09 Influenza, high-dose, quadrivalent, PF 3 completed Ej Perez MD [address], [place], [address], [facility] [employer] 05/21/2023 19:15:23 Past Encounters Encounter ID Performer Location Encounter Start Date Encounter Closed Date Diagnosis/Indication Diagnosis SNOMED-CT Code Diagnosis ICD10 Code Diagnosis Note [id number] [facility] [place] [address] , [place] [address] 10/25/2020 00:00:00 10/25/2020 14:16:43 [id number] Ej Perez MD [facility] [place] [address] , [place] [address] 04/28/2021 00:00:00 04/28/2021 11:27:22 [id number] Ej Perez MD [facility] [place] [address] , [place] [address] 10/26/2021 00:00:00 10/26/2021 11:52:54 [id number] Ej Perez MD [facility] [place] [address] , [place] [address] 12/15/2021 00:00:00 12/15/2021 15:26:27 [id number] Ej Perez MD [facility] [place] [address] [place] [address] 01/11/2022 00:00:00 01/11/2022 14:47:36 [id number] [facility] [place] [address] [place] [address] 04/25/2022 00:00:00 04/25/2022 13:00:17 [id number] [facility] [place] [facility] [place] [address] 05/11/2022 00:00:00 05/11/2022 11:42:29 [id number] Ej Perez MD [facility] [place] [facility] [place] [address] 08/24/2022 00:00:00 08/25/2022 05:49:32 [id number] Ej Peerz MD [facility] [place] [address] [place] [address] [place] [address] 03/05/2023 09:15:48 03/05/2023 09:52:42 Irritable bowel syndrome characterized by constipation 628435079 K58.1 History of palpitations 741330922 Z86.79 Impacted c erumen in right ear 8960648579 692346 H61.21 use debrox and ear wax removal kit. [id number] Ej Perez MD [facility] [place] [facility] [place] [address] 05/14/2023 15:25:58 05/15/2023 15:57:31 Dysuria 05486554 R30.0 [id number] Ej Perez MD [facility] [place] [facility] [place] [address] 05/21/2023 12:14:59 05/21/2023 12:42:27 Chronic low back pain 828786767 M54.50 Stretching recommende d. May need to go to pain management for this. Chronic neck pain 545543 5914 107 M54.2 Stretching recommende d. Showed pt how to do stretching . Administra tion of influenza vaccine 29041715 Z23 [id number] Mandeep Fermin MD [facility] [place] [address] [place] [address] 01/09/2024 10:57:11 01/09/2024 11:55:45 Pain of right hip joint 3947964371 07926 M25.363 [id number] Mandeep Fermin MD [facility] [place] [address] [place] [address] 02/13/2024 14:03:08 02/13/2024 14:57:55 Pain of right hip joint 1952922829 25041 M25.919 [id number] Mandeep Fermin MD [facility] [place] [address] [place] [address] 03/26/2024 11:43:15 03/26/2024 12:07:01 Pain of right hip joint 1027732188 10439 M25.551 Closed intertrochanteric fracture 09016779 S72.141D Health Concerns Section Related Observation LastModified by Organization Detai ls LastModified Time None Recorded Concern Status LastModified by Organization Details LastModified Time None Recorded Advance Directives Directive Y: Payers Encounter Date Sequence Insurance Name Policy Number Policy Turcios Covered Member ID Turcios Member ID Guarantor Name 05/14/2023 1 [place] Rosanne Hilario [id number] Rosanne Hilario 05/14/2023 2 [place] - PLAN F (MEDICARE SUPPLEMENT) Rosanne Hilario [id number] Rosanne Ezra Sulaiman 05/21/2023 1 [place] Rosanne Ezra Sulaiman [id number] Rosanne Hilario 05/21/2023 2 [employer] - PLAN F (MEDICARE SUPPLEMENT) Rosanne Hilario [id number] Rosanne Hilario 01/09/2024 1 [place] Rosanne Hilario [id number] Rosanne Hilario 01/09/2024 2 [place] - PLAN F (MEDICARE SUPPLEMENT) Rosanne Hilario [id number] Rosanne Hilario 02/13/2024 1 [place] Rosanne Hilario [id number] Rosanne Hilario 02/13/2024 2 [facility] - PLAN F (MEDICARE SUPPLEMENT) Rosanne Hilario [id number] Rosanne Munguia Sulaiman 03/26/2024 1 [place] Rosanne Munguia Sulaiman [id number] Rosanne Munguia Sulaiman 03/26/2024 2 [facility] - PLAN F (MEDICARE SUPPLEMENT) Rosanne Munguia Sulaiman [id number] Rosanne Munguia Sulaiman Notes Date Note Type Note Provider Name [...] wanting the flu shot. Ej Perez MD [address] [place] [address], [facility] [address], [place], [address], [facility] [employer] 05/21/2023 19:24:31 OBGyn Episode No OBEpisode recorded.
--- OUTSIDE RECORDS SUMMARY | 2025-01-01 12:08 | XMS_ITS | Referral Summary ---
Author Organization [facility] Address [address] [place] [address] Care Team Providers Care User Support Analyst Supervisor Name Role Phone Nelli Steinberg NP Primary Care Provider [phone] Encounters Date Type Department Care Team Description 12/16/[address] Office Building [address] [phone] Cathy Del Valle MD 12/16/2024 3:00 PM CDT Office Visit [address] Office Building 2 [address] [place] [phone] Cathy Del Valle MD Age-related osteoporosis without current pathological fracture (Primary Dx); At risk for falling 12/16/2024 2:30 PM CDT Clinical Support [address] Building [address] [phone] Age-related osteoporosis without current pathological fracture from Last 3 Months Allergies No known active allergies Medications benazepril [...] HOURS NEEDED FOR 10 DAYS 3 Active acetaminophen (Tylenol Extra Strength) 500 mg tablet Take 1 tablet (500 mg total) by mouth every 6 (six) hours as needed for pain Active Active Problems Problem Noted Date Diagnosed Date Age-related osteoporosis wit hout current pathological fracture 05/15/2018 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 Social History Tobacco Use Types Packs/Day Years Used Date Smoking Tobacco: Former Smokeless Tobacco: Never Comments Unknown Sex and Gender Information Value Date Recorded Sex Assigned at Not on file 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 Gender Identity Female 04/28/2021 1:18 PM CDT Sexual Orientation Straight 04/28/2021 1: 18 PM CDT Last Filed Vital Signs Vital Sign Reading Time Taken Comments Blood Pressure 158/84 11/24/2022 12:41 PM CDT Pulse 66 11/24/2022 12:41 PM CDT Temperature 36.3 C (97.4 F) 11/24/2022 12:41 PM CDT Respiratory Rate 18 11/24/2022 12:4 1 PM CDT Oxygen Saturation 98% 11/24/2022 12: 41 PM CDT Inhaled Oxygen Concentration - - Weight 55.2 kg (121 lb 12.8 oz) 12/16/2024 3:08 PM CDT Height 158 cm (5' 2.2) 12/16/2024 3:08 PM CDT Body Mass Index 22.13 12/16/2024 3:08 PM CDT Plan of Treatment Not on file Procedures Procedure Name Priority Date/Time Associated Diagnosis Comments DEXA TBS AXIAL SKELETON BONE DENSITY 1 OR MORE SITES Schedule Routine, Read Routine (OP Routine) 12/16/2024 2:53 PM CDT Age-related osteoporosis without current pathological fracture from Last 3 Months Results * Dexa TBS Axial Skeleton Bone Density 1 or more sites (12/16/2024 2:53 PM CDT) Anatomical Region Laterality Modality Wrist, Body N/A Radiographic Brie ging Narrative 12/16/2024 9:05 PM CDT Patient Name: Rosanne Hilario Date of : 1940 Date of scan: 12/16/2024 Bone mineral density was performed on a [employer] Discovery Densitometer. Based on machine cross-calibration and precision studies the least significant changes of this densitometer is 0.024 g/cm2 at the spine, 0.020 g/cm2 at the total proximal femur, and 0.014g/cm2 at the forearm. HISTORY: This is a 84 y.o. postmenopausal female with a history of osteoporosis, ulcerative colitis, and vitamin D deficiency. She reports that she has quit smoking. She has never used smokeless tobacco. Currently on treatment with calcium, vitamin D, denosumab (Prolia), and anticoagulants, previously treated with alendronate (Fosamax), risedronate (Actonel), ibandronate (Boniva), zoledronic acid (Reclast), and hormone replacement therapy, and current complaint of arm pain, back pain, neck pain, and leg pain. INDICATIONS: Menopause status, treatment monitoring, history of prior hip fracture, vitamin D deficiency, and history of osteoporosis. FINDINGS: BONE MINERAL DENSITY OF THE LUMBAR SPINE Bone Mineral Density (BMD) of the lumbar spine was measured from L1-L4 and the average density was calculated to be 0.829 gm/cm2. This corresponds to a T-score (standard deviations from the mean of young adults) of -2.0. When compared to the previous study of 09/12/2023 there has been a 0.023 gm/cm (2.9%) increase in bone density that is considered significant. BONE MINERAL DENSITY OF THE PROXIMAL FEMUR Bone Mineral Density (BMD) of the left hip total was found to be 0.658 gm/cm2. This corresponds to a T-score standard deviations from the mean of young adults of -2.3. Femoral neck is 0.599 gm/cm2 with a T-score (standard deviations from the mean of young adults) of -2.3. When compared to the previous study of 09/12/2023 there has been no significant changes in bone density. SUMMARY: Bone mineral density shows evidence of low bone mass at the lumbar spine and proximal femur and moderately increased fracture risk (Osteopenia). There has been a significant increase in bone density since previous measurement. The lumbar spine Trabecular Bone Score is 1.336 which suggests normal bone microarchitecture, compared to the general population. Final decisions [...] bone mineral density scan were prepared by Sruthi Warren(Renetta)(Felicita)(LAMAR) CBDT who is accredited by the International Society of Clinical Densitometry. The overall patient assessment and scan interpretation were performed by Cathy Del Valle M.D. who is certified by the International Society of Clinical Densitometry. [id number] Cathy Del Valle MD IMG DXA PROCEDURES Final Resu lt from Last 3 Months Insurance MEDICARE [facility] MEDICARE [facility] COMMERCIAL GENERIC [employer] INSURANCE COMPANY MEDICARE [facility] Address: [address] [address] [place] [address] [facility] Care Teams User Support Analyst Supervisor Relationship Specialty Start Date End Date Nelli Steinberg NP [address] [place] [address] PCP - General Nurse Practitioner 03/18/24
--- OUTSIDE RECORDS SUMMARY | 2025-01-01 12:08 | XMS_ITS | Clinical Summary ---
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 Encounters Date Type Department Care Team Description 12/16/2024 3:00 PM CDT Office Visit [address] Office Building [address] [place] [address] Cathy Del Valle MD Age-related osteoporosis without current pathological fracture (Primary Dx); At risk for falling 12/16/2024 2:30 PM CDT Clinical Support [address] Building [address] [place] [phone] Age-related osteoporosis without current pathological fracture 12/16/[address] Office Building [address] [place] [address] Cathy Del Valle MD from Last 3 Months Family History Medical [...] on file 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 Gender Identity Female 04/28/2021 1:18 PM CDT [...] 12/16/2024 3:08 PM CDT Plan of Treatment Health Maintenance Due Date Last Done Comments Depression Screening 1940 Fall Risk Assessment 1940 DTaP/Tdap/Td Vaccine (1 - Tdap) 1953 Hepatitis B Screening 1960 Zoster Vaccine (1 of 2) 1992 Well Visit 65+ 11/10/2007 Influenza Vaccine (Season Ended) 2025 04/21/2020, 05/12/2019, 05/08/2019, Additional history exists Osteoporosis Screening-Bone Density Scan 12/16/2026 12/16/2024, 09/12/2023, 09/12/2022, Additional history exists Pneumococcal vaccine 65+ [...] Bone mineral density was performed on a [employer] Discovery Densitometer. Based on machine cross-calibration and [...] mineral density scan were prepared by Sruthi Crystal)(Felicita)(BD) CBDT who is accredited by the International Society of Clinical Densitometry. The overall patient assessment and scan interpretation were performed by Cathy Del Valle M.D. who is certified by the International Society of Clinical Densitometry. [id number] Cathy Del Valle MD IMG DXA PROCEDURES Final Resu lt from Last 3 Months Insurance [facility] MEDICARE [facility] [employer]ANCE [employer] MEDICARE [facility] Member Subscriber Plan / Payer ( fective 2022-Present) Name:Rosanne Hilario Member ID:[id number] Relation to Subscriber:Self Name:Rosanne Hilario Subscriber ID:[id number] Payer ID:[id number] Type:COMMERCIAL Address: [facility] [id number] [address] Care Teams Top Trimmer Relationship Specialty Start Date End Date Nelli Steinberg NP [address] [place] [address] PCP - General Nurse Practitioner 03/18/24
--- OUTSIDE RECORDS SUMMARY | 2025-01-01 12:08 | XMS_ITS | Continuity of Care Document ---
Author Organization [facility] Address [address] [place] [address] Phone Care Team Providers Care University Manager Name Role Phone Vikash Tovar Unavailable [...] Diagnoses Date Provider Providers Copied on Encounter [facility], [address] [place] [address] [address], [place], [place], [id number], [place] tel:[phone] [facility] No Information [address] [place] [address] , [address], [place], [address], [place]. tel:[phone] [facility], [address], [place], [place], [address], [place] tel:[phone] [facility] No Information Oct-2 7-201 0 [place] [place], [place] [address]ate Center , [address], [place], [place], [facility], . tel:[phone] Referring Provider: Vikash Munguia, [address] [facility] [address], [place], [facility]. tel:[phone] [facility], [address] [place] [address] [address], [place], [place], [address], tel:[phone] [facility] [address] No Information 1 5-201 0 [place] [facility] [address], [address], [place], [facility], [place]. tel:[phone] Referring Provider: Vikash Munguia, [facility] [address], [place], [facility]. tel:[phone] Office/outpat ient Visit, [facility], [address] [place] [address] [address], [place], [place], [address], [place] tel:[phone] [facility] [address] No Information Apr-3 0-200 9 [place] [place], [place] [address]ate [address], [address], [place], [facility], [place]. tel:[phone] Referring Provider: Vikash Munguia, [facility] [address], [place], [facility]. tel:[phone] [facility], [address] [place] [address] [address], [place], [place], [address], [place] tel:[phone] [facility] [address] No Information 2 7-200 9 [place] [facility] [address], [address], [place], [facility], [place]. tel:[phone] Referring Provider: Vikash Munguia, [facility] [address], [place], [facility]. tel:[phone] [facility], [address], [place], [place], [address], [place] tel:[phone] SEC [facility] Corporate Center No Information [address] [place] [facility] , [address], [place], [facility], [place]. tel:[phone] Referring Provider: Vikash Munguia, [address], [place], [facility]. tel:[phone] [facility], [address] [place] [address] [address], [place], [place], [address], [place] tel:[phone] [facility] No Information 3 [address] [place] [facility] [address] , [address], [place], [facility], [place]. tel:[phone] [facility], [address], [place], [place], [address], [place] tel:[phone] [facility] No Information 8 [place] [facility] , [address], [place], [address], [place]. tel:[phone] [facility], [address], [place], [place], [address], [place] tel:[phone] [facility] No Information [address] [place] [facility] , [address], [place], [address], [place]. tel:[phone] Referring Provider: Vikash Munguia, [address], [place], [facility]. tel:[phone] [facility], [address], [place], [place], [address], [place] tel:[phone] [facility] Corporate Center No Information [address] [place] [facility] , [address], [place], [address], [place]. tel:[phone] [facility], [address], [place], [place], [address], [place] tel:[phone] [facility] No Information 8 [place] [facility] , [address], [place], [address], [place]. tel:[phone] Family History Family Member Type Diagnosis Age At Onset No Information Payers Payer name Insurance type Covered republican ID Authorjose carlosa jane(s) [place] [id number] [facility] [id number] Social History Type Description Quantity Date Captured [...]
--- OUTSIDE RECORDS SUMMARY | 2025-01-01 12:08 | XMS_ITS | CONTINUITY OF CARE DOCUMENT ---
Author Name yael conley Address Unknown Organization [facility] Address [address] [place] [address] Phone [phone] Care Team Providers Care Yard Conductor Name Role Phone Rm HARDWICK, Annabel Unavailable LINDSAY MORRIS MD Unavailable ANABELA CORNEJO Unavailable PROBLEMS Condition Status Date [...] active Annabel Abdalla MD Cardiology examination active Josef Britoi ENCOUNTERS Date Type Provider Location Encounter Diag nosis 4 - 5 In-person encounter Office Visit Annabel Abdalla MD [place] [facility] Cardiology examination 5 - 5 In-person encounter Office Visit Annabel Abdalla MD [place] [facility] 6 - 6 In-person encounter Office Visit Annabel Abdalla MD [place] [facility] Chest discomfort--stress nuc nl, 02/2023SVT, paroxysmal 0 7 - 7 In-person encounter Office Visit Annabel Abdalla MD [place] [facility] Hx of TIAHypertensionHyperlipidemiaIron deficiencyDyspnea on exertionFatigueSystolic murmurChest discomfort--stress nuc nl, alpitations VITAL SIGNS Date Observation Value Provider Body Mass Index (Ratio) 22.31 kg/m2 Sachin Abdalla MD blood pressure, diastolic 98 mm[Hg] seymourglenroy Osorio blood pressure, systolic 159 mm[Hg] seymour arguelles Osorio oxygen saturation, oximetry 97 % [facility] pulse rate 89 /min [facility] respiratory rate E&M 12 /min [facility] weight E&M 122 [lb_av] [facility] height E&M 62 [in_i] [facility] blood pressure, cuff size regular [facility] Body Mass Index (Ratio) 21.76 kg/m2 [...] Abdalla MD blood pressure, cuff size regular [facility] blood pressure, diastolic 97 mm[Hg] Ja rret blood pressure, systolic 150 mm[Hg] Jar ret pulse rate 76 /min See y respiratory rate E&M 12 /min See oxygen saturation, oximetry 99 % See weight E&M 123 [lb_av] See y height E&M 62 [in_i] See Body Mass Index (Ratio) 23.04 kg/m2 Sachin [...] 1 TABLET BY MOUTH EVERY DAY 4 Annabel Abdalla MD Plavix 75 mg tablet active pravastatin 20 mg tablet active benazepril 40 mg tablet active Lexapro 10 mg tablet active clonazepam 0.5 mg tablet active See pantoprazole 40 mg tablet,delayed release (DR/EC) completed - 4 Josef Beauchamp aspirin unspecified unspecified active Calcium 600 600 mg calcium (1,500 mg) tablet active vitamin S57-plubk acid 500-400 mcg tablet active See SOCIAL HISTORY Date Observation Value Provider cigarette use yes Josef Vanessadaniel smoking status Former smoker Josef Brito i cigarette use yes Josef Britoseymour smoking status Former smoker Josef Brito i cigarette use yes Josef Britoseymour smoking status Former smoker Jsoef Brito i social history E&M S moking History: Rosas guidry is a former smoker. Josefkaitlynn Beauchamp cigarette use yes See Jonescharlie ay smoking status Former smoker See Manjarrez rday social history reviewed E&M revi ewed - no changes required Josef Britoseymour INSURANCE PROVIDERS Payer name Policy type / Coverage type Brad red alliance party ID MEDICO INS Commercial insurance [employer] Parent 000 [id number] [place] MED[place] Medicare [id number] [facility] Commercial insurance [employer] Parent [id number] ADVANCE DIRECTIVES Name Date DISCUSSED - NO DECISION MADE TREATMENT PLAN Date Name Performer [id number],S, Josef Brito i [id number],S, Josef Brito i [id number],S, Josef Brito i [id number],S, Josef Brito i [id number],S, Josef Brito i Cardiology: H er updated [...] Ahmedzai Cardiology Josef Ahmedzai Cardiology Josef Ahmedzai Date Name Complete Echo Monitor - Telemetry (Mobile Cardiac) Stress Regadenoson Complete Echo HISTORY OF PROCEDURES Procedure Date Procedure Name Provider Procedure Notes S tatus Complex e/m visit add on Annabel Abdalla MD completed EKG Annabel Abdalla MD completed Complex e/m visit add on Annabel Abdalla MD completed EKG Annabel Abdalla MD completed
== END 2025-01-01 11:02 | disposition home or self-care (01) ==
PROVIDERS: PCP Nurse Practitioner Adult Health; Visit Provider Nurse Practitioner Adult Health
DX: M25.559 Pain in unspecified hip (principal)
CPT/HCPCS: 73502

== ENCOUNTER 2025-01-01 12:28 | Emergency (ER) | payer MEDICARE, SELFPAY ==
--- NOTE | ~2025-01-01 | CT_ITS ---
EXAMINATION: CT hip LT wo con DATE: 01/01/2025 12:52 INDICATION: Left hip pain TECHNIQUE: High resolution computed tomography (CT) of the left hip was performed without intravenous contrast. Additional sagittal and coronal reconstructions were performed. Automated exposure control and iterative reconstruction technique were employed. The dose-length product was 226.01 mGy-cm. COMPARISON: Left hip radiographs dated 01/01/2025 FINDINGS: Bone alignment is normal. No fracture or evident osteonecrosis. Mild osteoarthritis at the left hip j oint. No hip joint effusion. 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 There is moderate to severe left-sided predominant disc height loss at L5-S1. Moderate osteitis pubis. Multiple diverti cula without adjacent inflammatory stranding along the visualized sigmoid colon. Uterus, left adnexa and visualized portion of the bladder are unremarkable. No free fluid in the pelvis. No pathologicall y enlarged left pelvic or inguinal lymphadenopathy. IMPRESSION: 1. Degenerative skeletal changes as detailed above including mild osteoarthritis at the left hip. No acute osseous abnormality. Reviewed, dictated and finalized at location A. IMPRESSION: 1. Degenerative skeletal changes as detailed above including mild osteoarthriti s at the left hip. No acute osseous abnormality.
[2025-01-01 12:29] VITALS: BP 160/87; PULSE 80; RESP 16; TEMP 36.6; O2SAT 100
[2025-01-01 12:54] VITALS: RESP 16; O2SAT 100
--- OUTSIDE RECORDS SUMMARY | 2025-01-01 13:00 | XMS_ITS | Clinical Summary ---
Author Organization [facility] Address [address] [place] [address] Care Team Providers Care Data Analyst Report Writer Name Role Phone Nelli Steinberg APRN-CORRECTIONAL PROBATION OFFICER Unavailable [phone] Source Comments [facility],non-owned Affiliates and Associated Physician Practices is amultiple site organization consisting of ambulatory clinics and hospital sitesin [place], [place], [place] and [place]. This disclosure is being madepursuant to the Care Everywhere program and may not contain all information available regarding this patient. 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 Oxygen Saturation 99% 07/29/2018 11:17 AM PRINTING GREY CLOTH TENDER Inhaled Oxygen Concentration - - Weight 56.2 kg (124 lb) 07/29/2018 11:17 AM 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
--- OUTSIDE RECORDS SUMMARY | 2025-01-01 13:00 | XMS_ITS | Continuity of Care Document ---
Author Organization [facility] Address [address] [place] [address] Phone Care Team Providers Care Aircraft Metalsmith Name Role Phone Vikash Tovar Unavailable Unavailable [...] Diagnoses Date Provider Providers Copied on Encounter [facility], [id number] [place] [address] [address], [place], [place], [id number], [place] tel:[phone] SEC [facility] No Information 0 [place] Suh. [address] , [address], [place], [address], [place]. tel:[phone] [facility], [address], [place], [place], [address], [place] tel:[phone] SEC [facility] No Information Oct-2 7-201 0 [place] Su[place]. [address] [place], [place] [address]ate Center , [address], [place], [place], [facility], . tel:[phone] Referring Provider: Vikash Munguia, [address], [place], [place], [facility]. tel:[phone] [facility], [address] [place] [address] [address], [place], [place], [id number], tel:[phone] [facility] No Information 1 5-201 0 [place] Su[place]. [facility] [address], [address], [place], [facility], [place]. tel:[phone] Referring Provider: Vikash Munguia, [facility] [address], [place], [facility]. tel:[phone] Office/outpat ient Visit, [facility], [address] [place] [address] [address], [place], [place], [address], [place] tel:[phone] [facility] No Information Apr-3 0-200 9 [place]. [address] [place], [place] [address]ate [address], [address], [place], [facility], [place]. tel:[phone] Referring Provider: Vikash Munguia, [facility] [address], [place], [facility]. tel:[phone] [facility], [address] [place] [address] [address], [place], [place], [address], [place] tel:[phone] [facility] No Information 2 7-200 9 [place]. [facility] [address], [address], [place], [facility], [place]. tel:[phone] Referring Provider: Vikash Munguia, [facility] [address], [place], [facility]. tel:[phone] [facility], [address], [place], [place], [address], [place] tel:[phone] SEC [facility] No Information 9 [place]. [facility] [address] , [address], [place], [facility], [place]. tel:[phone] Referring Provider: Vikash Munguia, [address], [place], [facility]. tel:[phone] [facility], [address] [place] [address] [address], [place], [place], [address], [place] tel:[phone] [facility] No Information 3 9 [place]. [address] , [address], [place], [facility], [place]. tel:[phone] [facility], [address], [place], [place], [address], [place] tel:[phone] [facility] No Information 8 [place]. [facility] [address] , [address], [place], [address], [place]. tel:[phone] [facility], [address], [place], [place], [address], [place] tel:[phone] [facility] No Information 8 [place]. [facility] [address] , [address], [place], [address], [place]. tel:[phone] Referring Provider: Vikash Munguia, [address], [place], [facility]. tel:[phone] [facility], [address], [place], [place], [address], [place] tel:[phone] [facility] No Information 8 [place]. [address] [facility] , [address], [place], [address], [place]. tel:[phone] [facility], [address], [place], [place], [address], [place] tel:[phone] SEC [facility] No Information 8 [place]. [address] [facility] , [address], [place], [address], [place]. tel:[phone] Family History Family Member Type Diagnosis Age At Onset No Information Payers Payer name Insurance type Covered republican ID Authorjose carlosa jane(s) [place] [id number] [facility] [id number] Social History Type Description Quantity Date Captured [...]
--- OUTSIDE RECORDS SUMMARY | 2025-01-01 13:00 | XMS_ITS | Clinical Summary ---
Author Organization [facility] Address [address] [place] [address] Care Team Providers Care Scleroscope Tester Name Role Phone Timurlyle Nelli URENA Primary Care Provider [phone] Allergies No known active allergies Medications benazepril [...] Description 12/16/2024 3:00 PM CDT Office Visit [address] Office Building [address] [place] [address] Cathy Del Valle MD Age-related osteoporosis without current pathological fracture (Primary Dx); At risk for falling 12/16/2024 2:30 PM CDT Clinical Support [address] [place] [address] Age-related osteoporosis without current pathological fracture 12/16/[address] Building [address] [place] [address] Cathy Del Valle MD from Last 3 [...] on file 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 Based on machine cross-calibration and [...] by the International Society of Clinical Densitometry. [id number] Cathy Del Valle MD IMG DXA PROCEDURES Final Resu lt from Last 3 Months Insurance [facility] MEDICARE [facility] [employer] [place] [address] MEDICARE [facility] Member Subscriber Plan / Payer ( fective 2022-Present) Name:Rosanne Hilario Member ID:[id number] Relation to Subscriber:Self Name:Rosanne Hilario Subscriber ID:[id number] Payer ID:[id number] Type:COMMERCIAL Address: [facility] [id number] [address] Care Teams Scleroscope Tester Relationship Specialty Start Date End Date Nelli Steinberg NP [address] [place] [address] PCP - General Nurse Practitioner 03/18/24
--- OUTSIDE RECORDS SUMMARY | 2025-01-01 13:00 | XMS_ITS | Referral Summary ---
Author Organization [facility] Address [address] [place] [address] Care Team Providers Care Ob Scrub Tech Name Role Phone Nelli Steinberg NP Primary Care Provider [phone] Encounters Date Type Department Care Team Description 12/16/[address] Office [address] [phone] Cathy Del Valle MD 12/16/2024 3:00 PM CDT Office Visit [address] Building [address] [place] [phone] Cathy Del Valle MD Age-related osteoporosis without current pathological fracture (Primary Dx); At risk for falling 12/16/2024 2:30 PM CDT Clinical Support [address] [phone] Age-related osteoporosis without current pathological fracture from [...] on file 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 [id number] Cathy Del Valle MD IMG DXA PROCEDURES Final Resu lt from Last 3 Months Insurance MEDICARE [facility] MEDICARE [facility] COMMERCIAL GENERIC [employer] MEDICARE [facility] Care Teams Ob Scrub Tech Relationship Specialty Start Date End Date Nelli Steinberg NP [address] [place] [address] PCP - General Nurse Practitioner 03/18/24
--- OUTSIDE RECORDS SUMMARY | 2025-01-01 13:00 | XMS_ITS | CONTINUITY OF CARE DOCUMENT ---
Author Name yael conley Address Unknown Organization [facility] Address [address] [facility] [address] [place] [address] Phone [phone] Care Team Providers Care Field Identification Specialist Name Role Phone Rm HARDWICK, Annabel Unavailable LINDSAY MORRIS MD Unavailable ANABELA CORNEJO Unavailable [phone] PROBLEMS Condition Status Date Provider Notes Hypertension active Josef Ahmedzai Dyspnea on exertion active Josef Ahmedzai Systolic murmur active Josef Ahmedzai Chest discomfort--stress nuc nl, 02/2023 active 03/05 Annabel Abdalla MD Palpitations active Josef Ahmedzai Cardiology examination active Josef Ahmedzai SVT, paroxysmal active Annabel Abdalla MD Fatigue active Josef Ahmedzai Iron deficiency active Josef Ahmedzai Hyperlipidemia active Josef Ahmedzai Hx of TIA active Josef Ahmedzai ENCOUNTERS Date Type Provider Location Encounter Diag nosis 4 - 5 In-person encounter Office Visit Annabel Abdalla MD [facility] Cardiology examination 5 - 5 In-person encounter Office Visit Annabel Abdalla MD [facility] 6 - 6 In-person encounter Office Visit Annabel Abdalla MD [facility] Chest discomfort--stress nuc nl, 02/2023SVT, paroxysmal 0 7 - 7 In-person encounter Office Visit Annabel Abdalla MD [facility] Hx of TIAHypertensionHyperlipidemiaIron deficiencyDyspnea on exertionFatigueSystolic murmurChest discomfort--stress nuc nl, alpitations VITAL SIGNS Date Observation Value Provider Body Mass Index (Ratio) 22.31 kg/m2 Sachin Abdalla MD blood pressure, diastolic 98 mm[Hg] seymourglenroy Osorio blood pressure, systolic 159 mm[Hg] seymour arguelles Osorio oxygen saturation, oximetry 97 % [facility] pulse rate 89 /min [facility] respiratory rate E&M 12 /min [facility] weight E&M 122 [lb_av] [facility] height E&M 62 [in_i] [facility] blood pressure, cuff size regular [facility] Body Mass Index (Ratio) 21.76 kg/m2 Sachin Abdalla MD pulse rate 84 /min Jofernando Alfaro respiratory rate E&M 16 /min [facility] oxygen saturation, oximetry 100 % Jo Angelina weight E&M 119 [lb_av] Jo Posley blood pressure, cuff size regular Le slyanely Posley blood pressure, diastolic 80 mm[Hg] Le slie Posley blood pressure, systolic 152 mm[Hg] Les lie Posley height E&M 62 [in_i] Jo Posley Body Mass Index (Ratio) 22.49 kg/m2 Sachin Abdalla MD blood pressure, cuff size regular [facility] blood pressure, diastolic 97 mm[Hg] Ja rret [...] mg calcium (1,500 mg) tablet active vitamin T73-drekd acid 500-400 mcg tablet active See SOCIAL [...] Policy type / Coverage type Brad red republican ID MEDICO INS Commercial insurance [employer] 000 [id number] [place] MEDICARE Medicare [id number] [facility] Commercial insurance [employer] [id number] ADVANCE DIRECTIVES Name Date DISCUSSED - NO DECISION MADE TREATMENT PLAN Date Name Performer [id number],S, Josef Brito i [id number],S, Josef Brito i [id number],S, Josef Brito i [id number],S, Josef Brito i [id number],S, Josef Brito i Cardiology: H er updated [...] Tablet (Benazepril) Aspirin Unspecified Unspecified (Aspirin) Josef Beuachamp Cardiology Josef Beauchamp Cardiology: H er updated [...]
--- OUTSIDE RECORDS SUMMARY | 2025-01-01 13:00 | XMS_ITS | Clinical Summary ---
Author Organization [facility] Toneyharlanseymour adrian Aguilar Address [address] [place] [address] Care Team Providers Care News Writer Name Role Phone Unavailable Primary Care Provider [...] Comments Blood Pressure 136/86 09/19/2024 9:49 AM PLANT SCIENTIST man ual Pulse 89 09/19/2024 9:44 AM PLANT SCIENTIST Temperature 37.2 C (99 F) 09/19/2024 9:44 AM PLANT SCIENTIST Respiratory Rate 15 09/19/2024 9:44 AM PLANT SCIENTIST Oxygen Saturation 96% 09/19/2024 9:44 AM PLANT SCIENTIST Inhaled Oxygen Concentration - - Weight 55.2 kg (121 lb 9.6 oz) 09/19/2024 9:44 A M PLANT SCIENTIST Height 157.5 cm (5' 2) 05/03/2022 2:48 PM CDT Body Mass Index 22.24 05/03/2022 2:48 PM CDT Plan of Treatment Upcoming Encounters Date Type Department Care Team (Late st Contact Info) Description 03/24/2025 11:00 AM CDT Office Visit [facility] - [place] [address] [facility] [address] [place] [address] Brenden Jules MD [address] [facility] [address] [place] [address] Health Maintenance Due Date Last [...] Discontinued Insurance MEDICARE PART A AND B [facility] INS SUPP ILENE STALLINGS [id number]
--- NOTE | 2025-01-01 13:22 | ED_ITS ---
HPI - General Adult General Chief complaint: Recheck/Abnormal Lab/Rx Stated complaint: left hip fx ?? Time Seen by Provider: 01/01/25 13:05 History of Present Illness HPI narrative: 84-year-old female presents to the emergency department for evaluation for left hip pain. Patient states she has had some increased discomfort of the left hip and did present to her primary care physician for x-ray and initial x-ray was concerning for possible fracture. Patient was referred to the emergency department for a CT scan. Patient states she does have a history of a right hip fracture with surgery approximately 1 year ago that was done at [facility]. Patient states he did have another fall approximately 3 weeks ago and did land on her right hip. Patient denies any recent injury of her left hip. Patient states she was having some discomfort yesterday but is able to ambulate using her walker at her baseline. Related Data Home Medications ?Medication ?Instructions ?Recorded ?Confirmed ?Last Taken ?Type aspirin 81 mg tablet,delayed 81 mg PO DAILY 04/23/20 11/25/24 04/29/20 History release (Adult Low Dose Aspirin) calcium carbonate (Calcium 600) 600 mg PO DAILY 04/23/20 11/25/24 04/29/20 History cholecalciferol (vitamin D3) 25 25 mcg PO DAILY 11/01/23 11/25/24 Unknown History mcg (1,000 unit) capsule mecobalamin (vitamin B12) 500 mcg mcg PO 11/01/23 11/25/24 Unknown History chewable tablet pantoprazole 40 mg tablet,delayed 40 mg PO DAILY 11/01/23 11/25/24 Unknown History release turmeric root extract 500 mg 500 mg PO DAILY 11/01/23 11/25/24 Unknown History capsule escitalopram oxalate 10 mg tablet 20 mg PO DAILY 09/23/24 11/25/24 Unknown History Allergies Allergy/AdvReac Type Severity Reaction Status Date / Time amoxicillin AdvReac Diarrhea Verified 01/01/25 12:29 Review of Systems Review of Systems: All systems reviewed & are unremarkable except as noted in HPI and below PMFSH Past Medical History Medical History Anxiety Arthritis GERD (gastroesophageal reflux disease) Hyperlipidemia Hypertension IBS (irritable bowel syndrome) Osteoporosis Stroke Surgical History Surgical History No pertinent past surgical history Family History Family History Father Carcinoma of colon Mother Heart disease Daughter Asthma Hypertension Social History Social History Smoking status: Former smoker Alcohol intake: current Drinks per week: 1 Alcohol use details: BEER Substance use: current Substance use type: prescription drug Do You Feel Safe in your Home?: Yes Lack of Transportation: No Lack of Food: Never True Current Housing: I Have Housing Concerned About Future Housing: No Difficulty Paying Gas/Electric Bills: No Difficulty Paying for Meds: No Currently Unemployed: No Education: High School Diploma/GED Difficulty w/ Childcare or Family Care: No Living arrangements: with family Spiritual care concerns: No Exam Narrative: APPEARANCE: Well appearing, no pain, no distress, well-nourished. HEAD: normocephalic, atraumatic. EYES: PERRLA/EOMI, conjunctivae clear. NOSE: Normal no drainage EARS:TMS clear with good light reflex. THROAT: Pharynx clear, no exudate. NECK: Supple. No adenopathy, no masses. RESPIRATORY: Airway patent, respirations nonlabored. Clear to auscultation bilaterally, no rales, rhonchi, wheezing. CARDIOVASCULAR: Regular rate and rhythm without murmurs rubs or gallops. ABDOMINAL: Soft, nontender, nondistended, normal bowel sounds MUSCULOSKELETAL: Moves all extremities. Strength/ROM intact, No edema, No calf tenderness. NEURO: Alert. Cranial nerves II through XII intact. Good gait. Good coordination SKIN: Warm, dry. Normal Color Course Vital Signs Vital signs: Vital Signs Temperature 98 F 01/01/25 12:29 Pulse Rate 80 01/01/25 12:29 Respiratory Rate 16 01/01/25 12:29 Blood Pressure 160/87 H 01/01/25 12:29 Pulse Oximetry 100 01/01/25 12:29 Oxygen Delivery Room Air 01/01/25 12:29 Temperature 98 F 01/01/25 12:29 Pulse Rate 80 01/01/25 12:29 Respiratory Rate 16 01/01/25 12:54 Blood Pressure 160/87 H 01/01/25 12:29 Pulse Oximetry 100 01/01/25 12:54 Oxygen Delivery Room Air 01/01/25 12:29 Medical Decision Making MDM Narrative Medical decision making narrative: 84-year-old female presents to the emergency department for evaluation for re- evaluation of her left hip. CT scan shows no acute fracture but does show deg enerative skeletal changes. Patient was able to ambulate with walker to baseline with no complaints. Differential Diagnosis Differential Diagnosis: Hip strain, hip fracture Vital Signs Vital Signs: Vital Signs Temperature 98 F 01/01/25 12:29 Pulse Rate 80 01/01/25 12:29 Respiratory Rate 16 01/01/25 12:29 Blood Pressure 160/87 H 01/01/25 12:29 Pulse Oximetry 100 01/01/25 12:29 Oxygen Delivery Room Air 01/01/25 12:29 Temperature 98 F 01/01/25 12:29 Pulse Rate 80 01/01/25 12:29 Respiratory Rate 16 01/01/25 12:54 Blood Pressure 160/87 H 01/01/25 12:29 Pulse Oximetry 100 01/01/25 12:54 Oxygen Delivery Room Air 01/01/25 12:29 Lab Data Lab results reviewed: Yes I reviewed the patient's lab results. Imaging Data Radiologist's impression: Impressions Hip CT 01/01/25 13:08 IMPRESSION: 1. Degenerative skeletal changes as detailed above including mild osteoarthritis at the left hip. No acute osseous abnormality. Discharge Plan Discharge Clinical Impression: Acute pain of left hip Patient Disposition: Home Condition: Stable Instructions: Antibiotic Form Additional Instructions: Your CT scan was negative for acute fracture. Home medications for pain control and continue to utilize your walker for ambulation. Have close follow-up with your primary care physician. If you have any worsening symptoms then please call or return to the emergency department. Patient Language: Indonesian Prescriptions: No Action pantoprazole 40 mg tablet,delayed release (DR/EC) 40 mg PO DAILY mecobalamin (vitamin B12) 500 mcg tablet,chewable PO cholecalciferol (vitamin D3) 25 mcg (1,000 unit) capsule 25 mcg PO DAILY turmeric root extract 500 mg capsule 500 mg PO DAILY escitalopram oxalate 10 mg tablet 20 mg PO DAILY tramadol 50 mg tablet 50 mg PO Q12HR PRN (Reason: break through pain) Qty: 30 0RF aspirin [Adult Low Dose Aspirin] 81 mg Tablet,Delayed Release (Dr/Ec) 81 mg PO DAILY calcium carbonate [Calcium 600] 600 mg calcium (1,500 mg) Tablet 600 mg PO DAILY pravastatin 20 mg tablet 20 mg PO DAILY Qty: 90 3RF clopidogrel 75 mg tablet 75 mg PO DAILY Qty: 90 3RF benazepril 40 mg tablet 40 mg PO DAILY Qty: 90 3RF clonazepam 0.5 mg tablet 0.5 mg PO BID PRN (Reason: anxiety) Qty: 60 1RF polyethylene glycol 3350 [Miralax] 17 gram Powder In Packet 17 g PO QAM PRN (Reason: Constipation) Qty: 14 0RF Follow-up/Referrals: Nelli Steinberg APRN [Primary Care Provider] -
--- OUTSIDE RECORDS SUMMARY | 2025-01-01 13:50 | XMS_ITS | Referral Summary ---
Author Organization [facility] Address [address] [place] [address] Care Team Providers Care Physical Biochemist Name Role Phone Nelli Steinberg NP Primary Care Provider [phone] Encounters Date Type Department Care Team Description 12/16/[address] Office [address] [phone] Cathy Del Valle MD 12/16/2024 3:00 PM CDT Office Visit [address] Office Building [address] [place] [phone] Cathy Del Valle MD Age-related osteoporosis without current pathological fracture (Primary Dx); At risk for falling 12/16/2024 2:30 PM CDT Clinical Support [address] Building [address] [phone] Age-related osteoporosis without current pathological fracture from [...] on file Legal Sex 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 [id number] Cathy Del Valle MD IMG DXA PROCEDURES Final Resu lt from Last 3 Months Insurance MEDICARE [facility] MEDICARE [facility] COMMERCIAL GENERIC [employer] MEDICARE [facility] Address: [address] [address] [place] [address] [facility] Care Teams Physical Biochemist Relationship Specialty Start Date End Date Nelli Steinberg NP [address] [place] [address] PCP - General Nurse Practitioner 03/18/24
--- OUTSIDE RECORDS SUMMARY | 2025-01-01 13:50 | XMS_ITS | Clinical Summary ---
Author Organization [facility] Toneyharlanseymour adrian Aguilar Address [address] [place] [address] Care Team Providers Care Director Stars Name Role Phone Unavailable Primary Care Provider [...] Comments Blood Pressure 136/86 09/19/2024 9:49 AM E TAILER man ual Pulse 89 09/19/2024 9:44 AM E TAILER Temperature 37.2 C (99 F) 09/19/2024 9:44 AM E TAILER Respiratory Rate 15 09/19/2024 9:44 AM E TAILER Oxygen Saturation 96% 09/19/2024 9:44 AM E TAILER Inhaled Oxygen Concentration - - Weight 55.2 kg (121 lb 9.6 oz) 09/19/2024 9:44 A M E TAILER Height 157.5 cm (5' 2) 05/03/2022 2:48 PM CDT Body Mass Index 22.24 05/03/2022 2:48 PM CDT Plan of Treatment Upcoming Encounters Date Type Department Care Team (Late st Contact Info) Description 03/24/2025 11:00 AM CDT Office Visit [facility] Oncology and Hematology - [place] [address] [facility] [address] [place] [address] Brenden Jules MD [address] [facility] [address] [place] [address] Health Maintenance Due Date Last [...] Discontinued Insurance MEDICARE PART A AND B [facility] SUPP [facility] SUPP ILENE STALLINGS [id number]
--- OUTSIDE RECORDS SUMMARY | 2025-01-01 13:50 | XMS_ITS | Clinical Summary ---
Author Organization [facility] Address [address] [place] [address] Care Team Providers Care Handkerchief Cutter Name Role Phone Nelli Steinberg APRN-[facility]OMOTER Unavailable [phone] Source Comments [facility],non-owned Affiliates and Associated Physician Practices is amultiple site organization consisting of ambulatory clinics and hospital sitesin [place], [place], [place] and [place]. This disclosure is being madepursuant to the Care Everywhere program and may not contain all information available regarding this patient. 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 Gender Identity Not on file Sexual Orientation Not on file Last Filed Vital Signs Vital Sign Reading Time Taken Comments Blood Pressure 140/90 07/29/2018 11:17 AM WATER QUALITY CONTROL ENGINEER Pulse 69 07/29/2018 11:17 AM WATER QUALITY CONTROL ENGINEER Temperature 36.7 C (98.1 F) 07/29/2018 11:17 AM WATER QUALITY CONTROL ENGINEER Respiratory Rate 16 07/29/2018 11:17 AM WATER QUALITY CONTROL ENGINEER Oxygen Saturation 99% 07/29/2018 11:17 AM WATER QUALITY CONTROL ENGINEER Inhaled Oxygen Concentration - - Weight 56.2 kg (124 lb) 07/29/2018 11:17 AM WATER QUALITY CONTROL ENGINEER Height 160 cm (5' 3) 07/29/2018 11:17 AM WATER QUALITY CONTROL ENGINEER Body Mass Index 21.97 07/29/2018 11:17 AM WATER QUALITY CONTROL ENGINEER Plan of Treatment Health Maintenance Due Date [...] age to complete this topic Insurance MEDICARE [facility] MEDICARE Care Teams Handkerchief Cutter Relationship Specialty Start Date End Date Nelli Steinberg APRN-CNP [address] [address] Nurse Practitioner 06/30/17
--- OUTSIDE RECORDS SUMMARY | 2025-01-01 13:50 | XMS_ITS | Continuity of Care Document ---
Author Organization [facility] Address [address] [facility] [address] [place] [address] Phone Care Team Providers Care Scrap Metal Burner Name Role Phone Vikash Tovar Unavailable Unavailable [...] Diagnoses Date Provider Providers Copied on Encounter [facility], [id number] [place] [address] [address], [place], [place], [address], [place] tel:[phone] SEC [facility] No Information 0 [place]. [address] [facility] [address] , [address], [place], [address], [place]. tel:[phone] [facility], [address], [place], [place], [address], [place] tel:[phone] SEC [facility] No Information Oct-2 7-201 [address] [place] [place] [address]ate Center , [address], [place], [place], [facility], . tel:[phone] Referring Provider: Vikash Munguia, [facility] [address], [place], [facility]. tel:[phone] [facility], [address] [place] [address] [address], [place], [place], [address], tel:[phone] SEC [facility] [place] No Information 1 5-201 0 [place]. [facility] [address], [address], [place], [place], [facility], [place]. tel:[phone] Referring Provider: Vikash Munguia, [facility] [address], [place], [facility]. tel:[phone] Office/outpat ient Visit, [facility], [address] [place] [address] [address], [place], [place], [address], [place] tel:[phone] SEC [facility] [place] No Information Apr-3 0-200 [address] [place], [place] [address]ate [address] Kim, [address], [place], [facility], [place]. tel:[phone] Referring Provider: Vikash Munguia, [facility] [address], [place], [facility]. tel:[phone] [facility], [address] [place] [address] [address], [place], [place], [address], [place] tel:[phone] SEC [facility] [place] No Information 2 7-200 9 [place]. [facility] [address], [address], [place], [facility], [place]. tel:[phone] Referring Provider: Vikash Munguia, [facility] [address], [place], [facility]. tel:[phone] [facility], [address], [place], [place], [address], [place] tel:[phone] SEC [facility] No Information 9 [place]. [facility] , [address], [place], [facility], [place]. tel:[phone] Referring Provider: Vikash Munguia, [address], [place], [facility]. tel:[phone] [facility], [address] [place] [address] [address], [place], [place], [address], [place] tel:[phone] SEC [facility] No Information 3 9 [place]. [address] [facility] , [address], [place], [facility], [place]. tel:[phone] [facility], [address], [place], [place], [address], [place] tel:[phone] SEC [facility] No Information 8 La uSh. [facility] , [address], [place], [address], [place]. tel:[phone] [facility], [address], [place], [place], [address], [place] tel:[phone] [facility] No Information 8 [place]. [facility] , [address], [place], [address], [place]. tel:[phone] Referring Provider: Vikash Munguia, Rico [facility] [address], [place], [facility]. tel:[phone] [facility], [address], [place], [place], [address], [place] tel:[phone] SEC [facility] No Information 8 [place]. [address] [facility] , [address], [place], [address], [place]. tel:[phone] [facility], [address], [place], [place], [address], [place] tel:[phone] SEC [facility] No Information 8 [place]. [address] [facility] , [address], [place], [address], [place]. tel:[phone] Family History Family Member Type Diagnosis Age At Onset No Information Payers Payer name Insurance type Covered republican ID Authorjose carlosa jane(s) [place] [id number] [facility] [id number] Social History Type Description Quantity Date Captured [...]
--- OUTSIDE RECORDS SUMMARY | 2025-01-01 13:50 | XMS_ITS | CONTINUITY OF CARE DOCUMENT ---
Author Name yael conley Address Unknown Organization [facility] Address [address] [facility] [address] [place] [address] Phone [phone] Care Team Providers Care Dedenter Name Role Phone Rm HARDWICK, Annabel Unavailable [...] In-person encounter Office Visit Annabel Abdalla MD [facility] Cardiology examination 5 - 5 In-person encounter Office Visit Annabel Abdalla MD [facility] 6 - 6 In-person encounter Office Visit Annabel Abdalla MD [facility] Chest discomfort--stress nuc nl, 02/2023SVT, paroxysmal 0 7 - 7 In-person encounter Office Visit Annabel Abdalla MD [facility] Hx of TIAHypertensionHyperlipidemiaIron deficiencyDyspnea on exertionFatigueSystolic murmurChest discomfort--stress nuc nl, alpitations VITAL SIGNS Date Observation Value Provider Body Mass Index (Ratio) 22.31 kg/m2 Sachin Abdalla MD blood pressure, diastolic 98 mm[Hg] seymourglenroy Osorio blood pressure, systolic 159 mm[Hg] seymour arguelles Osorio oxygen saturation, oximetry 97 % [facility] pulse rate 89 /min [facility] respiratory rate E&M 12 /min [facility] weight E&M 122 [lb_av] [facility] height E&M 62 [in_i] [facility] blood pressure, cuff size regular [facility] Body Mass Index (Ratio) 21.76 kg/m2 Sachin Abdalla MD pulse rate 84 /min Jofernando Alfaro respiratory rate E&M 16 /min [facility] oxygen saturation, oximetry 100 % Jo Angelina weight E&M 119 [lb_av] Jo Posley blood pressure, cuff size regular Le slyanely Posley blood pressure, diastolic 80 mm[Hg] Le slie Posley blood pressure, systolic 152 mm[Hg] Les lie Posley height E&M 62 [in_i] Jo Posley Body Mass Index (Ratio) 22.49 kg/m2 Sachin Abdalla MD blood pressure, cuff size regular [facility] blood pressure, diastolic 97 mm[Hg] Ja [...] mg calcium (1,500 mg) tablet active vitamin [id number] acid 500-400 mcg tablet active See SOCIAL [...] Policy type / Coverage type Brad red democrat ID MEDICO INS Commercial insurance [employer] 000 [id number] [place] MED[place] Medicare [id number] [facility] Commercial insurance [employer]li [id number] ADVANCE DIRECTIVES Name Date DISCUSSED - NO DECISION MADE TREATMENT PLAN Date Name Performer [id number],S, Josef Brito i [id number],S, Josef Brito i [id number],S, Josef Brito i [id number],S, Josef Brito i [id number],S, Josef Brito i Cardiology: H er updated [...] Unspecified Unspecified (Aspirin) Josef Beauchamp Cardiology Josef Beauchapm Cardiology: H er updated medication list for [...]
--- OUTSIDE RECORDS SUMMARY | 2025-01-01 13:50 | XMS_ITS | Clinical Summary ---
Author Organization [facility] Address [address] [place] [address] Care Team Providers Care Business Intelligence Manager Name Role Phone Timurlyle Nelli URENA Primary Care Provider [phone] Allergies No known active allergies Medications benazepril [...] Description 12/16/2024 3:00 PM CDT Office Visit [address] [place] [address] Cathy Del Valle MD Age-related osteoporosis without current pathological fracture (Primary Dx); At risk for falling 12/16/2024 2:30 PM CDT Clinical Support [address] [place] [address] Age-related osteoporosis without current pathological fracture 12/16/[address] [place] [address] Cathy Del Valle MD from Last 3 [...] on file Legal 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 Based on machine cross-calibration and [...] by the International Society of Clinical Densitometry. [id number] Cathy Del Valle MD IMG DXA PROCEDURES Final Resu lt from Last 3 Months Insurance [facility] MEDICARE [facility] [place] [employer] MEDICARE [facility] Member Subscriber Plan / Payer ( fective 2022-Present) Name:Rosanne Hilario Member ID:[id number] Relation to Subscriber:Self Name:Rosanne Hilario Subscriber ID:[id number] Payer ID:[id number] Type:COMMERCIAL Address: [facility] [id number] Care Teams Business Intelligence Manager Relationship Specialty Start Date End Date Nelli Steinberg NP [address] [place] [address] PCP - General Nurse Practitioner 03/18/24
== END 2025-01-01 13:35 | disposition home or self-care (01) ==
PROVIDERS: Emergency Provider Emergency Medicine; PCP Nurse Practitioner Adult Health
DX: M25.552 Pain in left hip (principal); I10 Essential (primary) hypertension; E78.5 Hyperlipidemia, unspecified; K21.9 Gastro-esophageal reflux disease without esophagitis; K58.9 Irritable bowel syndrome, unspecified; M16.12 Unilateral primary osteoarthritis, left hip; M81.0 Age-related osteoporosis without current pathological fracture; F41.9 Anxiety disorder, unspecified; Z86.73 Personal history of transient ischemic attack (TIA), and cerebral infarction without residual deficits; Z87.891 Personal history of nicotine dependence
CPT/HCPCS: 73700; 99284

== ENCOUNTER 2025-03-12 15:47 | Outpatient (CLI) | payer MEDICARE, SELFPAY ==
--- NOTE | ~2025-03-12 | XR_ITS ---
XR wrist RT 2V 03/12/2025 15:56 Indication: Right wrist pain Procedure: 2 views right wrist Comparison: No prior studies for comparison. Findings: There is severe osteoarthritis of the triscaphe and to a lesser degree first carpal metacar pal joints. There is osteoarthritis of the first MCP and IP joints as well. No acute fracture or trau matic malalignment. Impression: 1: Moderate-severe polyarticular osteoarthritis. Reviewed, dictated and finalized at location A. Impression: 1: Moderate-severe polyarticular osteoarthritis.
--- OUTSIDE RECORDS SUMMARY | 2025-03-12 15:51 | XMS_ITS | Clinical Summary ---
Author Organization [facility] Rena adrian Aguilar Address [address] [place] [address] Care Team Providers Care Purler Name Role Phone Unavailable Primary Care Provider [...] Encounters Date Type Department Care Team Description 03/04/2025 External Device Data STL ABSTRACTION Provider, Abstract from Last 3 Months Family History Medical [...] Comments Blood Pressure 136/86 09/19/2024 9:49 AM SALES AND SERVICE CHANGE LEADER man ual Pulse 89 09/19/2024 9:44 AM SALES AND SERVICE CHANGE LEADER Temperature 37.2 C (99 F) 09/19/2024 9:44 AM SALES AND SERVICE CHANGE LEADER Respiratory Rate 15 09/19/2024 9:44 AM SALES AND SERVICE CHANGE LEADER Oxygen Saturation 96% 09/19/2024 9:44 AM SALES AND SERVICE CHANGE LEADER Inhaled Oxygen Concentration - - Weight 55.2 kg (121 lb 9.6 oz) 09/19/2024 9:44 A M SALES AND SERVICE CHANGE LEADER Height 157.5 cm (5' 2) 05/03/2022 2:48 PM CDT Body Mass Index 22.24 05/03/2022 2:48 PM CDT Plan of Treatment Upcoming Encounters Date Type Department Care Team (Late st Contact Info) Description 03/24/2025 11:00 AM CDT Office Visit [facility] Oncology and Hematology - [place] [address] [place] [address] Brenden Jules MD [address] [facility] [address] [place] [address] Health Maintenance Due Date Last Done Comments DTAP/TDAP/TD VACCINES (1 - Tdap) 1961 ZOSTER VACCINE (1 of 2) 1992 RSV VACCINE (60+ or ) (1 - 1-dose 75+ series) 2017 INFLUENZA VACCINE (#1) 2025 3, 05/11/2022, 04/28/2021, Additional history exists OSTEOPOROSIS SCREENING 12/16/2029 5, 09/12/2023, 09/12/2023, Additional history exists COLORECTAL SCREENING Discontinued 11/19/2018, 11/20/19 19 Colorectal Cancer Screening Discontinued PNEUMOCOCCAL VACCINE 50+ YEARS Completed 01/06/2019 , 03/28/2011 FIT-DNA Q 3 years Discontinued FIT/FOBT Q 1 year Discontinued Flex Sig/CT Colonography Q 5 years Discontinued Insurance MEDICARE PART A AND B [facility] SUPP [facility] SUPP [place] [id number]
--- OUTSIDE RECORDS SUMMARY | 2025-03-12 15:51 | XMS_ITS | Clinical Summary ---
Author Organization [facility] Address [address] [place] [address] Care Team Providers Care Computer Terminal Operator Name Role Phone Timurlyle Nelli URENA Primary Care Provider [phone] Allergies No known active allergies Medications benazepril [...] Description 12/16/2024 3:00 PM CDT Office Visit [address] [place] [address] Cathy Del Valle MD Age-related osteoporosis without current pathological fracture (Primary Dx); At risk for falling 12/16/2024 2:30 PM CDT Clinical Support [address] [place] [address] Age-related osteoporosis without current pathological fracture 12/16/[address] [place] [address] Cathy Del Valle MD from Last 3 [...] on file 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 Based on machine cross-calibration and [...] by the International Society of Clinical Densitometry. [id number] Cathy Del Valle MD IMG DXA PROCEDURES Final Resu lt from Last 3 Months Insurance [facility] MEDICARE [facility] [employer]ANCE COMPANY MEDICARE [facility] Member Subscriber Plan / Payer ( fective 2022-Present) Name:Rosanne Hilario Member ID:[id number] Relation to Subscriber:Self Name:Rosanne Hilario Subscriber ID:[id number] Payer ID:[id number] Type:[employer]cast [employer] Address: [facility] [id number] Care Teams Computer Terminal Operator Relationship Specialty Start Date End Date Nelli Steinberg NP [address] [place] [address] PCP - General Nurse Practitioner 03/18/24
--- OUTSIDE RECORDS SUMMARY | 2025-03-12 15:51 | XMS_ITS | Clinical Summary ---
Author Organization [employer] Address [address] [place] [address] Care Team Providers Care Office Service Coordinator Name Role Phone Nelli Steinberg APRN-CHEMICAL WEIGHER Unavailable [phone] Source Comments [facility],non-owned Affiliates and Associated Physician Practices is amultiple site organization consisting of ambulatory clinics and hospital sitesin [place], [place], [place] and [place]. This disclosure is being madepursuant to the Care Everywhere program and may not contain all information available regarding this patient. Last updated 18.Mavrx Allergies No known active allergies Medications * [...] on file Legal Sex Female 9:39 AM PET STYLIST Gender Identity Not on file Sexual Orientation Not on file Last Filed Vital Signs Vital Sign Reading Time Taken Comments Blood Pressure 140/90 07/29/2018 11:17 AM PET STYLIST Pulse 69 07/29/2018 11:17 AM PET STYLIST Temperature 36.7 C (98.1 F) 07/29/2018 11:17 AM PET STYLIST Respiratory Rate 16 07/29/2018 11:17 AM PET STYLIST Oxygen Saturation 99% 07/29/2018 11:17 AM PET STYLIST Inhaled Oxygen Concentration - - Weight 56.2 kg (124 lb) 07/29/2018 11:17 AM PET STYLIST Height 160 cm (5' 3) 07/29/2018 11:17 AM PET STYLIST Body Mass Index 21.97 07/29/2018 11:17 AM PET STYLIST Plan of Treatment Health Maintenance Due Date [...] season) 2024 DEPRESSION SCREENING 07/30/2024 INFLUENZA VACCINE (#1) 2025 HEPATITIS B VACCINE Aged Out No [...] age to complete this topic Insurance MEDICARE [facility] MEDICARE Care Teams Office Service Coordinator Relationship Specialty Start Date End Date Nelli Steinberg APRN-CNP [address] [address] Nurse Practitioner 06/30/17
== END 2025-03-12 15:48 | disposition home or self-care (01) ==
LOC: ANHBWCIMG 15:49
PROVIDERS: PCP Nurse Practitioner Adult Health; Visit Provider Nurse Practitioner Adult Health
DX: M25.431 Effusion, right wrist (principal)
CPT/HCPCS: 73100

== ENCOUNTER 2025-03-20 11:26 | Outpatient (CLI) | payer MEDICARE, SELFPAY ==
[2025-03-20 11:44] LABS: Hematocrit 43.4 % (37.0-47.0); Hemoglobin 13.8 g/dL (12.0-15.0); Immature Granulocyte Percent A 1.7 % (0-0.5); Lymphocytes Absolute Auto 1.94 K/mm3 (0.9-3.2); Mean Corpuscular HGB Conc 31.8 g/dl (32-36); Mean Corpuscular Hemoglobin 29.8 pg (26-34); Mean Corpuscular Volume 93.7 fl (80-100); Nucleated Red Blood Cells Absolute Auto 0.000 K/mm3 (0.0-0.012); Nucleated Red Blood Cells Perc 0.0 % (0.0-0.2); Platelet Count Result 261 k/mm3 (150-375); Red Blood Count 4.63 M/mm3 (4.2-5.4); White Blood Count 7.7 K/mm3 (4.5-10.0)
[2025-03-20 12:07] LABS: Iron 63 ug/dL (37-170)
[2025-03-20 12:08] LABS: Anion Gap 6 mmol/L (4-12); Blood Urea Nitrogen 26 mg/dL (7-17); Calcium 9.5 mg/dL (8.4-10.2); Carbon Dioxide 30 mmol/L (22-30); Chloride 101 mmol/L (98-107); Estimated Glomerular Filt Rate 44; Glucose 90 mg/dL (65-110); Potassium 5.6 mmol/L (3.4-5.0); Sodium 137 mmol/L (137-145)
[2025-03-20 12:17] LABS: Percent Iron Saturation 27 % (20-50)
[2025-03-20 12:52] LABS: Ferritin 114.00 ng/mL (11.1-264)
[2025-03-20 13:24] LABS: Vitamin B12 974.0 pg/mL (239-931)
== END 2025-03-20 11:27 | disposition home or self-care (01) ==
PROVIDERS: PCP Nurse Practitioner Adult Health; Visit Provider Internal Medicine Hematology & Oncology
DX: D64.9 Anemia, unspecified (principal)
CPT/HCPCS: 36415; 80048; 82607; 82728; 82746; 83540; 83550; 85025

== ENCOUNTER 2025-04-06 08:51 | Outpatient (CLI) | payer MEDICARE, SELFPAY ==
--- NOTE | ~2025-04-06 | MM_ITS ---
EXAMINATION: MM screening harpreet BI w emiliana HISTORY: Screening TECHNIQUE: Craniocaudal and mediolateral oblique 3-D tomosynthesis images were obtained and synthetic 2-D images were generated. CAD analysis was submitted and interpreted. COMPARISON: Comparison to multiple prior studies sequentially, with oldest reviewed study dated , 11/19/2017 BREAST PARENCHYMAL COMPOSITION: There are scattered areas of fibroglandular density. FINDINGS: There is no evidence of suspicious mass, calcification, or architectural distortion to suggest malignancy in either breast. IMPRESSION: 1. No mammographic evidence of malignancy. 2. Recommend routine screening mammography in one year. BI-RADS Category 1: Negative Reviewed, dictated and finalized at location B.
--- OUTSIDE RECORDS SUMMARY | 2025-04-06 09:03 | XMS_ITS | Clinical Summary ---
Author Organization [facility] Toneyharlanseymour adrian Aguilar Address [address] [place] [address] Care Team Providers Care C D Area Supervisor Name Role Phone Unavailable Primary Care Provider [...] Encounters Date Type Department Care Team Description 03/24/2025 11:00 AM CDT Office Visit [facility] Oncology and Hematology [facility] [address] [place] [address] Brenden Jules MD Chronic anemia (Primary Dx) 03/23/2025 Orders Only [facility] Oncology and Hematology [facility] [address] [place] [address] Brenden Jules MD 03/04/2025 External Device Data STL ABSTRACTION Provider, [...] Sign Reading Time Taken Comments Blood Pressure 129/86 03/24/2025 10:48 AM CDT Pulse 75 03/24/2025 10:48 AM CDT Temperature 37.2 C (99 F) 03/24/2025 10:48 AM CDT Respiratory Rate 12 03/24/2025 10:4 8 AM CDT Oxygen Saturation 98% 03/24/2025 10: 48 AM CDT Inhaled Oxygen Concentration - - Weight 55.2 kg (121 lb 11.1 oz) 025 10:48 AM CDT Height 157.5 cm (5' 2) 05/03/2022 2:48 PM CDT Body Mass Index 22.26 05/03/2022 2:48 PM CDT Plan of Treatment Upcoming Encounters Date Type Department Care Team (Late st Contact Info) Description 12/22/2025 11:30 AM CDT Office Visit [facility] Oncology and Hematology - [place] [address] [address] [place] [address] Brenden Jules MD [address] [facility] [address] [place] [address] Health Maintenance Due Date Last Done Comments DTAP/TDAP/TD VACCINES (1 - Tdap) 1961 ZOSTER VACCINE (1 of 2) 1992 RSV VACCINE (60+ or ) (1 - 1-dose 75+ series) 2017 INFLUENZA VACCINE (#1) 2025 4, 05/21/2023, 05/11/2022, Additional history exists OSTEOPOROSIS SCREENING 12/16/2029 5, 12/16/2024, 09/12/2023, Additional history exists COLORECTAL SCREENING Discontinued 11/19/2018, 11/20/19 19 Colorectal Cancer Screening Discontinued PNEUMOCOCCAL VACCINE 50+ YEARS Completed 01/06/2019 , 03/28/2011 FIT-DNA Q 3 years Discontinued FIT/FOBT Q 1 year Discontinued Flex Sig/CT Colonography Q 5 years Discontinued Procedures Procedure Name Priority Date/Time Associated Diagnosis Comments BASIC METABOLIC PANEL Routine 03/20/2025 12:27 PM CDT from Last 3 Months Results * BASIC METABOLIC PANEL (03/20/2025 12:27 PM CDT) Blood us Brenden Jules MD CHEMISTRY ORDERABLES Final Resu lt from Last 3 Months Insurance MEDICARE PART A AND B [facility]PP [facility] SUPP [place] [id number]
--- OUTSIDE RECORDS SUMMARY | 2025-04-06 09:03 | XMS_ITS | Clinical Summary ---
Author Organization [employer] [facility] Address [address] [place] [address] Care Team Providers Care Manager Search Name Role Phone Nelli Steinberg APRN-PHARMACEUTICAL PROCESS ENGINEER Unavailable [phone] Source Comments [facility] [employer],non-owned Affiliates and Associated Physician Practices is amultiple site organization consisting of ambulatory clinics and hospital sitesin [place], [place], [place] and [place]. This disclosure is being madepursuant to the Care Everywhere program and may not contain all information available regarding this patient. Last updated 18.TVDeck Allergies No known active allergies Medications * [...] on file Legal Sex Female 9:39 AM DEVELOPER ADVOCATE Gender Identity Not on file Sexual Orientation Not on file Last Filed Vital Signs Vital Sign Reading Time Taken Comments Blood Pressure 140/90 07/29/2018 11:17 AM DEVELOPER ADVOCATE Pulse 69 07/29/2018 11:17 AM DEVELOPER ADVOCATE Temperature 36.7 C (98.1 F) 07/29/2018 11:17 AM DEVELOPER ADVOCATE Respiratory Rate 16 07/29/2018 11:17 AM DEVELOPER ADVOCATE Oxygen Saturation 99% 07/29/2018 11:17 AM DEVELOPER ADVOCATE Inhaled Oxygen Concentration - - Weight 56.2 kg (124 lb) 07/29/2018 11:17 AM DEVELOPER ADVOCATE Height 160 cm (5' 3) 07/29/2018 11:17 AM DEVELOPER ADVOCATE Body Mass Index 21.97 07/29/2018 11:17 AM DEVELOPER ADVOCATE Plan of Treatment Health Maintenance Due Date Last Done Comments BONE DENSITY TESTING 1942 DTAP/TDAP/TD VACCINES (1 - Tdap) 1961 PNEUMOCOCCAL VACCINE 50+ (1 of 1 - PCV) 1992 ZOSTER VACCINE (1 of 2) 1992 Respiratory Syncytial Virus (RSV) Vaccine Pt: or over 60 yrs (1 - 1-dose 75+ series) 2017 DEPRESSION SCREENING 07/30/2024 COVID-19 VACCINE (1 - 2023-2 5 season) 2025 INFLUENZA VACCINE (#1) 2025 HEPATITIS B VACCINE [...] age to complete this topic Insurance MEDICARE [facility] MEDICARE Care Teams Manager Search Relationship Specialty Start Date End Date Nelli Steinberg APRN-CNP [address] [address] Nurse Practitioner 06/30/17
--- OUTSIDE RECORDS SUMMARY | 2025-04-06 09:03 | XMS_ITS | Clinical Summary ---
Author Organization [facility] Address [address] [place] [address] Care Team Providers Care Web Developer Programmer Name Role Phone Timurlyle Nelli URENA Primary Care Provider [phone] Allergies No known active allergies Medications benazepril [...] Encounters Date Type Department Care Team Description 03/31/2025 11:00 AM CDT Infusion [facility] Injection Therapy [address] [facility] [address] [place] [address] Age-related osteoporosis without current pathological fracture (Primary Dx) from Last 3 Months Family [...] on file 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 Based on machine cross-calibration and [...] by the International Society of Clinical Densitometry. [id number] Cathy Del Valle MD IMG DXA PROCEDURES Final Resu lt from Last 3 Months or Most Recently Relevant to Health Maintenance Insurance MEDICARE [facility] MEDICARE [facility] COMMERCIAL GENERIC [place] book INSURANCE [employer] MEDICARE [facility] Member Subscriber Plan / Payer ( fective 2022-Present) Name:Rosanne Hilario Member ID:[id number] Relation to Subscriber:Self Name:Rosanne Hilario Subscriber ID:[id number] Payer ID:[id number] Type:COMMERCIAL Address: [place] [id number] [address] [facility] Care Teams Web Developer Programmer Relationship Specialty Start Date End Date Nelli Steinberg NP [address] [place] [address] PCP - General Nurse Practitioner 03/18/24
== END 2025-04-06 08:52 | disposition home or self-care (01) ==
LOC: ANHFOHIMG 08:53
PROVIDERS: PCP Nurse Practitioner Adult Health; Visit Provider Nurse Practitioner Adult Health
DX: Z12.31 Encounter for screening mammogram for malignant neoplasm of breast (principal)
CPT/HCPCS: 77063; 77067

== ENCOUNTER 2025-04-24 11:41 | Emergency (ER) | payer MEDICARE, SELFPAY ==
--- OUTSIDE RECORDS SUMMARY | 2025-04-24 11:43 | XMS_ITS | Clinical Summary ---
Author Organization [facility] Address [address] [place] [address] Care Team Providers Care Lead Simulation Modeling Engineer Name Role Phone Timurlyle Nelli URENA Primary Care Provider [phone] Allergies No known active allergies Medications benazepril [...] CDT Infusion [facility] Injection [facility] [address] [facility] 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 Based on machine cross-calibration and [...] by the International Society of Clinical Densitometry. [id number] Cathy Del Valle MD IMG DXA PROCEDURES Final Resu lt from Last 3 Months or Most Recently Relevant to Health Maintenance [place] [address] [facility] MEDICARE [facility] COMMERCIAL GENERIC [employer] INSURANCE [employer] MEDICARE [facility] Member Subscriber Plan / Payer ( fective 2022-Present) Name:Rosanne Hilario Member ID:[id number] Relation to Subscriber:Self Name:Rosanne Hilario Subscriber ID:[id number] Payer ID:[id number] Type:COMMERCIAL Address: [place] [id number] [address] [facility] Care Teams Lead Simulation Modeling Engineer Relationship Specialty Start Date End Date Nelli Steinberg NP [address] [place] [address] PCP - General Nurse Practitioner 03/18/24
--- OUTSIDE RECORDS SUMMARY | 2025-04-24 11:43 | XMS_ITS | Clinical Summary ---
Author Organization [facility] adrian Agu[facility] Address [address] [place] [address] Care Team Providers Care Veterinarian Helper Name Role Phone Unavailable Primary Care Provider [...] Description 03/24/2025 11:00 AM CDT Office Visit [facility] Oncology and Hematology [facility] [address] [place] [address] Brenden Jules MD Chronic anemia (Primary Dx) 03/23/2025 Orders Only [facility] Oncology and Hematology [facility] [address] [place] [address] Brenden Jules MD 03/04/2025 External Device Data [...] Description 12/22/2025 11:30 AM CDT Office Visit [facility] Oncology and Hematology - [place] [address] [facility] [address] [place] [address] Brenden Juels MD [address] [facility] [address] [place] [address] Health Maintenance Due Date Last [...] Months Insurance MEDICARE PART A AND B [facility] SUPP [facility] SUPP [place] [id number]
--- OUTSIDE RECORDS SUMMARY | 2025-04-24 11:43 | XMS_ITS | Clinical Summary ---
Author Organization [employer] Address [address] [place] [address] Care Team Providers Care Mover Helper Name Role Phone Nelli Steinberg APRN-PARTNER MANAGER Unavailable [phone] Source Comments [facility] [employer],non-owned Affiliates and Associated Physician Practices is amultiple site organization consisting of ambulatory clinics and hospital sitesin [place], [place], [place] and [place]. This disclosure is being madepursuant to the Care Everywhere program and may not contain all information available regarding this patient. 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97 07/29/2018 11:17 AM WHEEL MILL OPERATOR Plan of Treatment Health Maintenance Due Date [...] age to complete this topic Insurance MEDICARE [facility] MEDICARE Care Teams Mover Helper Relationship Specialty Start Date End Date Nelli Steinberg APRN-CNP [address] [address] Nurse Practitioner 06/30/17
[2025-04-24 12:08] VITALS: BP 162/93; PULSE 96; RESP 16; TEMP 37; O2SAT 98
--- OUTSIDE RECORDS SUMMARY | 2025-04-24 13:14 | XMS_ITS | Clinical Summary ---
Author Organization [facility] Toneyharlanseymour adrian Aguilar Address [address] [place] [address] Care Team Providers Care Circular Sawyer Stone Name Role Phone Unavailable Primary Care Provider [...] Description 03/24/2025 11:00 AM CDT Office Visit [facility] Oncology and Hematology [facility] [address] [place] [address] Brenden Jules MD Chronic anemia (Primary Dx) 03/23/2025 Orders Only [facility] Oncology and Hematology [facility] [address] [place] [address] Brenden Jules MD 03/04/2025 External Device Data [...] Description 12/22/2025 11:30 AM CDT Office Visit [facility] Oncology and Hematology - [place] [address] [place] [address] Brenden Jules MD [address] [facility] [address] [place] [address] Health Maintenance Due Date Last [...] Months Insurance MEDICARE PART A AND B [facility] SUPP [facility] SUPP [place] [id number]
--- OUTSIDE RECORDS SUMMARY | 2025-04-24 13:14 | XMS_ITS | Clinical Summary ---
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 Based on machine cross-calibration and [...] by the International Society of Clinical Densitometry. [id number] Cathy Del Valle MD IMG DXA PROCEDURES Final Resu lt from Last 3 Months or Most Recently Relevant to Health Maintenance Insurance MEDICARE [facility] MEDICARE [facility] COMMERCIAL GENERIC [employer] INSURANCE Spare Backup MEDICARE [facility] Member Subscriber Plan / Payer ( fective 2022-Present) Name:Rosanne Hilario Member ID:[id number] Relation to Subscriber:Self Name:Rosanne Hilario Subscriber ID:xxx [id number] Payer ID:[id number] Type:COMMERCIAL Address: [place] [id number] [address] [facility] Care Teams Distributing Clerk Relationship Specialty Start Date End Date Nelli Steinberg NP [address] [place] [address] PCP - General Nurse Practitioner 03/18/24
--- OUTSIDE RECORDS SUMMARY | 2025-04-24 13:14 | XMS_ITS | Clinical Summary ---
Author Organization [facility] Address [address] [place] [address] Care Team Providers Care Inspector Tool Name Role Phone Nelli Steinberg APRN-STRIPPER LATEX Unavailable [phone] Source Comments [facility],non-owned Affiliates and Associated Physician Practices is amultiple site organization consisting of ambulatory clinics and hospital sitesin [place], [place], [place] and [place]. This disclosure is being madepursuant to the Care Everywhere program and may not contain all information available regarding this patient. 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 Gender Identity Not on file Sexual Orientation Not on file Last Filed Vital Signs Vital Sign Reading Time Taken Comments Blood Pressure 140/90 07/29/2018 11:17 AM FARM MACHINERY ENGINE MECHANIC Pulse 69 07/29/2018 11:17 AM FARM MACHINERY ENGINE MECHANIC Temperature 36.7 C (98.1 F) 07/29/2018 11:17 AM FARM MACHINERY ENGINE MECHANIC Respiratory Rate 16 07/29/2018 11:17 AM FARM MACHINERY ENGINE MECHANIC Oxygen Saturation 99% 07/29/2018 11:17 AM FARM MACHINERY ENGINE MECHANIC Inhaled Oxygen Concentration - - Weight 56.2 kg (124 lb) 07/29/2018 11:17 AM FARM MACHINERY ENGINE MECHANIC Height 160 cm (5' 3) 07/29/2018 11:17 AM FARM MACHINERY ENGINE MECHANIC Body Mass Index 21.97 07/29/2018 11:17 AM FARM MACHINERY ENGINE MECHANIC Plan of Treatment Health Maintenance Due Date [...] to complete this topic Insurance MEDICARE [facility] MEDICARE Care Teams Inspector Tool Relationship Specialty Start Date End Date Nelli Steinberg APRN-CNP [address] [address] Nurse Practitioner 06/30/17
--- OUTSIDE RECORDS SUMMARY | 2025-04-24 13:14 | XMS_ITS | Patient Health Record ---
Author Organization [facility] Address [address] [place] [address] Care Team Providers Care Team Foreman Name Role Phone Oz Mcelroy Primary Care Provider [phone] Julian Broussard Unavailable Unavailable Reason For Referral No Information Medications Medication SIG (Take, Route, Frequency, Duration) Notes Start Date End Date Status Aleve Acute Active State (Oswaldo) Active Xanax Acute Active State (Oswaldo) Active Plan Of Treatment No Information Insurance Providers Payer Name Payer Address Payer Phone Subscriber Number Group Number Insured Name Patient Relationship to Insured Coverage Start Date Coverage End Date MEDICARE SERVICES [address] [address] [place] [phone] [id number] Rosanne Hilario Self - patient is the insured
--- OUTSIDE RECORDS SUMMARY | 2025-04-24 13:14 | XMS_ITS | Data Portability ---
Author Organization [place] [facility], Main Office Address [address] [place] [address] [address] Care Court Collections Officer Name Role Phone ANABELA TRINH Primary Care Provider ANABELA TRINH Referring Provider [phone] Assessment Encounter Date Assessment Date Assessment LastModified [...] Lab urinalysis, dipstick 2022 023 [email or web address] 3 [facility] [address] [place], [place], [address], 08:43:03 culture, urine 2022 023 may 36 [facility], [address] [place], [address], 16:31:10 Referral None recorded. Procedures None recorded. Surgeries None recorded. Imaging XR, hip + pelvis, unilateral, 2 or 3 view 2023 024 NATACHA [facility] [place], [address], [place], [address], 4 10:11:21 XR, hip + pelvis, unilateral 2023 024 [email or web address] [facility] [place], [address], [place], [address], 4 23:30:46 Medication Orders ciprofloxac in 500 mg tablet 2022 023 [id number], [address], [place], [address], 16:05:31 Patient TargetsNo targets recorded. Patient InstructionsNo instructions recorded. Reason for Referral None Reported. Results Created Date Observation Date Name Description Value Unit Range Abnormal Flag Note LastModifiedBy Organization Detail LastModifiedTime 05/14/2005/14/2023 urina lysis , dipst ick Leukocytes (reference range: negative jos/ l) Negati ve Not Available [address] [place], [place], [address], 05/14/2023 16:06:45 05/14/2005/14/2023 urina lysis , dipst ick Nitrite (reference rage: negative mg/dl) negati ve Not Available [address] [place], [place], [address], 05/14/2023 16:06:45 05/14/2005/14/2023 urina lysis , dipst ick Urobilinogen (reference range: 0.2-1 mg/dl) 0.2 Not Available [address] [place], [place], [address], 05/14/2023 16:06:45 05/14/2005/14/2023 urina lysis , dipst ick Protein (reference range: negative mg/dl) Negati ve Not Available [address] [place], [place], [address], 05/14/2023 16:06:45 05/14/2005/14/2023 urina lysis , dipst ick pH (reference range: 5-7) 6.5 Not Available [address] [place], [place], [address], 05/14/2023 16:06:45 05/14/2005/14/2023 urina lysis , dipst ick Blood (reference range: negative Jacoby/ l) Hemoly zed: Trace Not Available [address] [place], [place], [address], 05/14/2023 16:06:45 05/14/2005/14/2023 urina lysis , dipst ick Specific [place] (reference range: 1.005-1.030) 1.030 Not Available [address] [place], [place], [address], 05/14/2023 16:06:45 05/14/2005/14/2023 urina lysis , dipst ick Ketone (reference range: negative mg/dl) Negati ve Not Available [address] [place], [place], [address], 05/14/2023 16:06:45 05/14/2005/14/2023 urina lysis , dipst ick Bilirubin (reference range: negative mg/dl) Negati ve Not Available [address] [place], [place], [address], 05/14/2023 16:06:45 05/14/2005/14/2023 urina lysis , dipst ick Glucose (reference range: negative mg/dl) Negati ve Not Available [address] [place], [place], [address], 05/14/2023 16:06:45 05/14/2005/14/2023 urina lysis , dipst ick Appearance Clear Not Available [address] [place], [place], [address], 05/14/2023 16:06:45 05/14/2005/14/2023 urina lysis , dipst ick Color Yellow Not Available [address] [place], [place], [address], 05/14/2023 16:06:45 05/11/2005/11/2023 sandra heredia study No observ ation record ed. [address], [place], [address], 05/16/2023 12:31:15 05/19/2005/19/2023 CT, cervi leslie spine , w/o contr ast No observ ation record ed. [address], [place], [address], 05/21/2023 14:35:37 10/04/19 24 10/04/2023 US, doppl er echoc ardio gram No observ ation record ed. [email or web address] [place] [address] [facility] [address], [place], [address], 10/05/2023 09:35:57 12/23/19 24 12/23/2023 CT, hip + pelvi s, w/o contr ast No observ ation record ed. [email or web address] [facility] [address] [place], [address], 12/25/2023 14:52:19 12/24/19 24 12/24/2023 RF, alcira nce No observ ation record ed. [email or web address] [facility] [address] [place], [address], 12/25/2023 14:52:54 01/09/20 24 XR, hip + pelvi s, unila teral No observ ation record ed. [email or web address] [facility] [place] [address], [place], [address], 01/09/2024 11:44:58 03/26/20 24 XR, hip + pelvi s, unila teral , 2 or 3 view No observ ation record ed. [email or web address] [facility] [place] [address], [place], [address], 03/26/2024 11:59:35 Result Notes None recorded. Problems Name Problem SNOMED Code Status Onset Date Resolution Date Notes Provider Name and Address Organization Details Recorded Time History of transient ischemic attack 532382354 Active Not Available [facility] 4 06:25:08 Arthritis of wrist 19602439992 09 Completed Not Available [facility] 3 02:51:46 Impacted cerumen 54992357 Completed Not Available [facility] 3 02:51:46 Radial styloid tenosynov itis 45354251 Completed Not Available [facility] 3 02:51:46 Degenerat ion of lumbar intervert ebral disc 27966589 Completed Not Available [facility] 3 02:51:46 Anemia 796065974 Active Not Available [facility] 4 06:25:08 Low back pain 542544898 Active Not Available [facility] 4 06:25:08 Menopause present 518953850 Completed Not Available [facility] 3 02:51:47 Pain in pelvis 85454297 Completed Not Available [facility] 3 02:51:47 Restless legs 38513463 Active Not Available [facility] 4 06:25:08 Vitamin D deficienc y 53707098 Active Not Available [facility] 4 06:25:08 Depressiv e disorder 65553618 Active Not Available [facility] 4 06:25:08 Hypertens tony disorder 89596714 Completed Not Available [facility] 3 02:51:47 Osteoarth ritis 233323975 Active Not Available [facility] 4 06:25:08 Diverticu lar disease 124290669 Active Not Available [facility] 4 06:25:08 Carotid bruit 513118564 Completed Not Available [facility] 3 02:51:48 Decreased flexion 43361919 Completed Not Available [facility] 3 02:51:48 Anxiety 68859458 Active Not Available [facility] 4 06:25:08 Upper respirato ry infection 83679159 Completed Not Available [facility] 3 02:51:48 Lower abdominal pain 30978416 Completed Not Available [facility] 3 02:51:49 Hyperlipi demia 07060188 Active Not Available [facility] 4 06:25:08 Essential hypertens ion 79789896 Active Not Available [facility] 4 06:25:08 Colitis 14989733 Completed Not Available [facility] 3 02:51:49 Osteoporo sis 64855911 Active Not Available [facility] 4 06:25:08 Intoleran t of cold 66229046 Completed Not Available [facility] 3 02:51:49 Fatigue 16062061 Completed Not Available [facility] 3 02:51:50 Shoulder joint pain 931951436 Active 2016 Not Available [facility] 4 06:25:08 Fever 729463001 Active 2016 Not Available [facility] 4 06:25:08 Impacted cerumen 14124598 Active 2016 Not Available [facility] 4 06:25:08 History of gastric ulcer 095414214 Active 2018 Not Available [facility] 4 06:25:08 COVID-19 819977315 Active 2019 Not Available [facility] 4 06:25:08 Mixed anxiety and depressiv e disorder 190351300 Active 2022 Not Available [facility] 4 06:25:08 Irritable bowel syndrome character ized by constipat ion 832093223 Active 2022 Not Available [facility] 4 06:25:08 Impacted cerumen in right ear 12092687793 76417 Active 2022 Not Available [facility] 4 06:25:08 Gastro-es ophageal reflux disease with esophagit is 477840792 Active 2022 Not Available [facility] 4 06:25:08 Dysuria 12368802 Active 2022 Not Available [facility] 4 06:25:08 Chronic low back pain 096915158 Active 2022 Not Available [facility] 4 06:25:08 Chronic neck pain 74440246013 07 Active 2022 Not Available [facility] 4 06:25:08 Pain of right hip joint 87249515495 9102 Active 2023 ELDA Hughes [place] [facility] 4 11:18:40 Closed intertroc hanteric fracture 95178114 Active 2023 ELDA Hughes [place] [facility] [employer] [facility] 4 11:46:05 Problem Notes None recorded. Procedures Surgical History Date Name Laterality Status Provider Name and Address Organization Details Recorded Time 12/24/19 24 Hip surgery completed ELDA Hughes [employer] [facility] [facility] 01/09/2024 11:17:03 09/18/19 Endoscopy completed Not Available [facility] 3 02:40:06 Cataract Surgery completed Not Available [facility] 09/27/2022 02:40:06 Colonoscopy completed Not Available [facility] 09/27/2022 02:40:06 Orthopedic Procedure completed Not Available [facility] 09/27/2022 02:40:06 Imaging Results None recorded. Procedure Notes None recorded. Medical Equipment None Reported. Allergies Allergen ID Allergen Name Allergen Category Reaction Reaction Severity Criticality Documentation Date Start Date Code Code System Note Provider Name and Address Organization Details Recorded Time 4999 Fosamax medicatio n other Not available Not available 09/27/2022 84108 5 RxNorm reflu x Not Available [facility] 03:06:02 Medications Name Sig Start Date Stop [...] 6 mg/mL suspensio n for injection active [facility]# [id number] - Not Available Not Available Not Available [...] for injection 06/09 completed Gave 1/2cc 80mg [facility]#[id number] 2 Not Available Not Available Not [...] month by intramus cular route. 06/09 completed [facility]# 60114-30 31- Not Available Not Available Not Available ibuprofen [...] Available Not Available Not Available Fluzone High-Dose 7869-9781 (PF) 180 mcg/0.5 mL intramusc ular syringe 12/11 completed Not Available Not Available Not Available Fluzone High-Dose 8015-5208 (PF) 180 mcg/0.5 mL intramusc ular syringe [...] Updated DateTime 01/09/2024 157.48 cm 22.9 kg/m2 34357.05 g 6 ELDA Hughes [employer] 01/09/2024 11:14:55 Date Recorded Body height Body mass index (BMI) Body weight Provider Name and Address Organization Details Last Updated DateTime 02/13/2024 160.02 cm 21.1 kg/m2 56055.49 g Anette Triana [employer] 02/13/2024 14:09:59 Date Recorded Body height Body mass index (BMI) Body weight Pain severity - 0-10 verbal numeric rating [Score] - Reported Provider Name and Address Organization Details Last Updated DateTime 03/26/2024 160.02 cm 20.9 kg/m2 77003.9 g 2 ELDA Hughes [employer] 03/26/2024 11:45:29 Date Recorded Body height Provider Name an d Address Organization Details Last Updated DateTime 05/14/2023 157.48 cm Lena Corrales [facility] [employer] [facility] 05/14/2023 16:04:33 Date Recorded Body height Body mass index (BMI) Body weight Body temperature Heart rate Oxygen saturation Oxygen saturation in Arterial blood by Pulse oximetry Systolic And Diastolic Provider Name and Address Organization Details Last Updated DateTime 157.48 cm 23 kg/m2 00778.6 4 g 97 [degF] 68 /min 97 % 97 % 132/78 mm[Hg] Lena tim [facility] [employer] [facility] 12:22:43 Social History Question Answer Notes LastModified by Vyyo Details LastModified Time Tobacco Smoking Status Former Smoker Not Available [facility] 09/27/2022 02:32:22 Do You Have An Advance Directive? Yes [id number] Information not available 09/27/2022 Are You Blind Or Do You Have Difficulty Seeing? No MIGRATION.[id number] 1587 Information not available 09/27/2022 What Is Your Level Of Caffeine Consumption? Occasional [id number] 6048 Information not available 09/27/2022 How Much Tobacco Do You Chew? None MIGRATION.951903 7653 Information not available 09/27/2022 Are You Deaf Or Do You Have Serious Difficulty Hearing? Yes MIGRATION.619206 0255 Information not available 09/27/2022 Which Illicit Or Recreational Drugs Have You Used? No MIGRATION.[id number] 0774 Information not available 09/27/2022 What Was The Date Of Your Most Recent Tobacco Screening? 01/09/2024 [email or web address] Information not available 01/09/2024 At What Age Did You Start Smoking Tobacco? 20 Quit 30 MIGRATION.074539 8572 Information not available 09/27/2022 How Much Tobacco Do You Smoke? 1 PPW MIGRATION.269420 4503 Information not available 09/27/2022 Do You Have Difficulty Walking Or Climbing Stairs? No MIGRATION.509082 4069 Information not available 09/27/2022 Sex: Unknown Functional Status Question Answer Note LastModified by Vyyo Details LastModified Time What is your level of alcohol consumption? None MIGRATION.1001018 026 Information not available 09/27/2022 Do you or have you ever used smokeless tobacco? Never used smokeless tobacco MIGRATION.9241366 026 Information not available 09/27/2022 Do you have difficulty doing errands alone? No MIGRATION.[id number] 026 Information not available 09/27/2022 What is your occupation? Retired MIGRATION.8471751 026 Information not available 09/27/2022 Do you have difficulty dressing, bathing, grooming, or toileting? No MIGRATION.5655317 026 Information not available 09/27/2022 Do you or have you ever used e-cigarettes or vape? Never used electronic cigarettes MIGRATION.[id number] 026 Information not available 09/27/2022 What is your exercise level? None MIGRATION.0540404 026 Information not available 09/27/2022 Mental Status Question Answer Note LastModified by Organizat ion Details LastModified Time Do you have difficulty concentrating, remembering or making decisions? No MIGRATION.[id number] 6 Information not available 09/27/2022 Family History Relationship Description Onset Age of this Age Resolved Age Notes LastModified by Organization Details LastModified Time Father Malignant tumor of colon 57 [email or web address] Not available 02/12 14:04:18 Father Arthritis [email or web address] Not availa ble 02/13/2024 14:04:18 Mother Deep venous thrombosis [email or web address] Not available 01/27 14:04:18 Mother Arthritis [email or web address] Not availa ble 02/13/2024 14:04:18 Mother Heart disease [id number] Not available 09/27/2022 02:40:12 Mother Myocardial infarction 86 [id number].[id number] Not available 09/27/2022 02:40:12 Brother Renal dialysis [email or web address] Not available 02/12 14:04:18 Brother Renal dialysis [email or web address] Not available 02/12 14:04:18 Medical History Condition [...] high-dose, trivalent, PF 7 completed Not Available [facility] 08/22/2023 06:25:09 COVID-19, mRNA, LNP-S, PF, 100 mcg/0.5mL dose or 50 mcg/0.25mL dose 1 completed Not Available [facility] 08/22/2023 06:25:09 COVID-19, mRNA, LNP-S, PF, 100 mcg/0.5mL dose or 50 mcg/0.25mL dose 1 completed Not Available [facility] 08/22/2023 06:25:09 COVID-19, mRNA, LNP-S, PF, 100 mcg/0.5mL dose or 50 mcg/0.25mL dose 1 completed Not Available [facility] 08/22/2023 06:25:09 Influenza, split virus, quadrivalent, preservative 0 completed Not Available [facility] 08/22/2023 06:25:09 Influenza, split virus, quadrivalent, preservative 9 completed Not Available [facility] 08/22/2023 06:25:09 Influenza, split virus, quadrivalent, preservative 8 completed Not Available [facility] 08/22/2023 06:25:09 Influenza, split virus, trivalent, preservative 6 completed Not Available [facility] 08/22/2023 06:25:09 Influenza, split virus, trivalent, preservative 5 completed Not Available [facility] 08/22/2023 06:25:09 Influenza, split virus, trivalent, preservative 4 completed Not Available [facility] 08/22/2023 06:25:09 pneumococcal polysaccharide PPV23 1 completed Not Available [facility] 08/22/2023 06:25:09 Influenza, split virus, trivalent, preservative 1 completed Not Available [facility] 08/22/2023 06:25:09 Influenza, high-dose, quadrivalent, PF 2 completed Not Available [facility] 08/22/2023 06:25:09 Influenza, high-dose, quadrivalent, PF 1 completed Not Available [facility] 08/22/2023 06:25:09 Pneumococcal conjugate PCV 13 9 completed Not Available [facility] 08/22/2023 06:25:09 Influenza, high-dose, quadrivalent, PF 3 completed Ej Perez MD [address] [facility], [facility] [address], [place], [address], [facility] [employer] [facility] 05/21/2023 19:15:23 Past Encounters Encounter ID Performer Location Encounter Start Date Encounter Closed Date Diagnosis/Indication Diagnosis SNOMED-CT Code Diagnosis ICD10 Code Diagnosis IMO Codes Diagnosis Note [id number] [facility] Diaz llma[place] [address] [place] [address] [place] [id number] 10/25/2020 00:00:00 10/25/2020 14:16:43 [id number] Ej Perez MD [facility] [place] [address] [place] [address] [place] [address] 04/28/2021 00:00:00 04/28/2021 11:27:22 [id number] Perez MD [facility] [place] [address] [place] [address] [place] [address] 10/26/2021 00:00:00 10/26/2021 11:52:54 [id number] Ej Perez MD [facility] [place] [address] [place] [address] [place] [address] 12/15/2021 00:00:00 12/15/2021 15:26:27 [id number] Ej Perez MD [facility] [place] [address] [place] [address] [place] [id number] 01/11/2022 00:00:00 01/11/2022 14:47:36 [id number] [facility] [place] [address] [place] [address] y , [place] [address] 04/25/2022 00:00:00 04/25/2022 13:00:17 [id number] [facility] [place] [address] , [place] [address] 05/11/2022 00:00:00 05/11/2022 11:42:29 [id number] Ej Perez MD [facility] [place] [address] [place] [address] [place] [address] 08/24/2022 00:00:00 08/25/2022 05:49:32 [id number] Ej Perez MD [facility] [place] [address] [place] [address] y , [place] [address] 03/05/2023 09:15:48 03/05/2023 09:52:42 Irritable bowel syndrome characterized by constipation 880568950 K58.1 History of palpitations 084024714 Z86.79 Impacted c erumen in right ear 2316373012 617125 H61.21 use debrox and ear wax removal kit. [id number] Ej Perez MD [facility] [place] [address] [place] [address] [place] [id number] 05/14/2023 15:25:58 05/15/2023 15:57:31 Dysuria 25969739 R30.0 [id number] Ej Perez MD [facility] [place] [address] [place] [address] [place] [id number] 05/21/2023 12:14:59 05/21/2023 12:42:27 Chronic low back pain 464496873 M54.50 Stretching recommende d. May need to go to pain management for this. Chronic neck pain 491796 7430 107 M54.2 Stretching recommende d. Showed pt how to do stretching . Administra tion of influenza vaccine 09019433 Z23 [id number] Mandeep Fermin MD [facility] [place] [address] [place] [address] 01/09/2024 10:57:11 01/09/2024 11:55:45 Pain of right hip joint 4812050760 24436 M25.893 [id number] Mandeep Fermin MD [facility] [place] [address] [place] [address] 02/13/2024 14:03:08 02/13/2024 14:57:55 Pain of right hip joint 4057035647 03780 M25.425 [id number] Mandeep Ferimn MD [facility] [place] [address] [place] [address] 03/26/2024 11:43:15 03/26/2024 12:07:01 Pain of right hip joint 6947641433 85002 M25.551 Closed intertrochanteric fracture 89085650 S72.141D Health Concerns Section Related Observation LastModified by Organization Detai ls LastModified Time None Recorded Concern Status LastModified by Organization Details LastModified Time None Recorded Advance Directives Directive Y: Payers Insurance Date Sequence Insurance Name Policy Number Policy Turcios Covered Member ID Turcios Member ID Guarantor Name 12/09/2024 1 [place] Rosanne Hilario [id number] Rosanne Hilario 12/09/2024 2 [place] [employer] [facility] - PLAN F (MEDICARE SUPPLEMENT) Rosanne Hilario [id number] Rosanne Hilario Notes Date Note Type Note Provider Name and Address Organization Details Recorded Time 05/21/2023 text/html Here today for ER f/u. Had neck pain. Could not move [...] wanting the flu shot. Ej Perez MD [address] [place] [address], [facility] [address], [place], [address], [facility] [employer] [facility] 05/21/2023 19:24:31 OBGyn Episode No OBEpisode recorded.
--- NOTE | 2025-04-24 13:25 | ED.GENADULT ---
HPI - General Adult General Chief complaint: Nausea/Vomiting/Diarrhea Stated complaint: Diarrhea x4 days Time Seen by Provider: 04/24/25 13:06 History of Present Illness HPI narrative: Patient is an 84-year-old female who presents ER with diarrhea. Intermittent over last 4 days. Occurred 1 time today. 6 times on Sunday. No diarrhea yesterday. No blood in her stool. She has tried Pepto-Bismol without improvement. No fevers or chills or sweats. She also took a home a urine test for UTI that she reports is positive. No vomiting. No chest pain. Related Data Home Medications ?Medication ?Instructions ?Recorded ?Confirmed ?Last Taken ?Type aspirin 81 mg tablet,delayed 81 mg PO DAILY 04/23/20 03/12/25 04/29/20 History release (Adult Low Dose Aspirin) calcium carbonate (Calcium 600) 600 mg PO DAILY 04/23/20 03/12/25 04/29/20 History cholecalciferol (vitamin D3) 25 25 mcg PO DAILY 11/01/23 03/12/25 Unknown History mcg (1,000 unit) capsule mecobalamin (vitamin B12) 500 mcg mcg PO 11/01/23 03/12/25 Unknown History chewable tablet pantoprazole 40 mg tablet,delayed 40 mg PO DAILY 11/01/23 03/12/25 Unknown History release turmeric root extract 500 mg 500 mg PO DAILY 11/01/23 03/12/25 Unknown History capsule Allergies Allergy/AdvReac Type Severity Reaction Status Date / Time amoxicillin AdvReac Diarrhea Verified 04/24/25 12:10 Review of Systems Review of Systems: All systems reviewed & are unremarkable except as noted in HPI and below Constitutional: Constitutional: Reports no additional constitutional complaints ENT: Reports system reviewed and no additional complaints, except as documented Cardiovascular: Cardiovascular: Reports no additional cardiovascular complaints Respiratory: Respiratory: Reports no additional respiratory complaints Musculoskeletal: Musculoskeletal: Reports no additional musculoskeletal complaints [facility] Past Medical History Medical History Anxiety Arthritis GERD (gastroesophageal reflux disease) Hyperlipidemia Hypertension IBS (irritable bowel syndrome) Osteoporosis Stroke Surgical History Surgical History No pertinent past surgical history Family History Family History Father Carcinoma of colon Mother Heart disease Daughter Asthma Hypertension Social History Social History Smoking status: Former smoker Alcohol intake: current Drinks per week: 1 Alcohol use details: BEER Substance use: current Substance use type: prescription drug Do You Feel Safe in your Home?: Yes Lack of Transportation: No Lack of Food: Never True Current Housing: I Have Housing Concerned About Future Housing: No Difficulty Paying Gas/Electric Bills: No Difficulty Paying for Meds: No Currently Unemployed: No Education: High School Diploma/GED Difficulty w/ Childcare or Family Care: No Living arrangements: with family Spiritual care concerns: No Exam Narrative: GENERAL: Well-appearing, well-nourished, and in no acute distress. HEAD: Normocephalic, atraumatic. ENT: Mucous membranes moist. CHEST: Clear to auscultation. No respiratory distress. HEART: Regular rate and rhythm. Normal peripheral pulses. ABDOMEN: Soft, nontender, nondistended. EXTREMITIES: Normal range of motion. No edema. SKIN: Warm, dry, no rash. NEURO: Alert and oriented x3. PSYCH: Normal mood and affect. Course Course Emergency Course: Blood work and urinalysis unremarkable. Patient received 1 L IV fluid. Appropriate for discharge home. Abdomen soft nontender. Vital Signs Vital signs: Vital Signs Temperature 98.6 F 04/24/25 12:08 Pulse Rate 96 04/24/25 12:08 Respiratory Rate 16 04/24/25 12:08 Blood Pressure 162/93 H 04/24/25 12:08 Pulse Oximetry 98 04/24/25 12:08 Temperature 98.6 F 04/24/25 12:08 Pulse Rate 96 04/24/25 12:08 Respiratory Rate 16 04/24/25 12:08 Blood Pressure 162/93 H 04/24/25 12:08 Pulse Oximetry 98 04/24/25 12:08 Medical Decision Making Vital Signs Vital Signs: Vital Signs Temperature 98.6 F 04/24/25 12:08 Pulse Rate 96 04/24/25 12:08 Respiratory Rate 16 04/24/25 12:08 Blood Pressure 162/93 H 04/24/25 12:08 Pulse Oximetry 98 04/24/25 12:08 Temperature 98.6 F 04/24/25 12:08 Pulse Rate 96 04/24/25 12:08 Respiratory Rate 16 04/24/25 12:08 Blood Pressure 162/93 H 04/24/25 12:08 Pulse Oximetry 98 04/24/25 12:08 Lab Data 04/24/25 13:32 04/24/25 13:32 Labs: Lab Results 04/24/25 Range/Units 13:32 WBC 6.3 (4.5-10.0) K/mm3 RBC 4.81 (4.2-5.4) M/mm3 Hgb 14.2 (12.0-15.0) g/dL Hct 45.0 (37.0-47.0) % MCV 93.6 (80-100) fl MCH 29.5 (26-34) pg MCHC 31.6 L (32-36) g/dl RDW 13.4 (11.5-14.5) % Plt Count 212 (150-375) k/mm3 MPV 10.2 (7.4-10.4) fl Immature Gran % (Auto) 0.8 H (0-0.5) % Neut % (Auto) 67.2 (45.5-73.1) % Lymph % (Auto) 19.6 (18.3-44.2) % [place] % (Auto) 8.4 (2.6-8.5) % Eos % (Auto) 3.2 (0-4.4) % Baso % (Auto) 0.8 (0.2-1.2) % Lymph # (Auto) 1.24 (0.9-3.2) K/mm3 [place] # (Auto) 0.5 (0.1-0.6) K/mm3 Eos # (Auto) 0.2 (0-0.3) K/mm3 Baso # (Auto) 0.1 (0.0-0.1) K/mm3 Abs Immat Gran (auto) 0.05 H (0.00-0.031) K/mm3 Absolute Neuts (auto) 4.3 (1.3-6.7) K/mm3 Absolute Nucleated RBC 0.000 (0.0-0.012) K/mm3 Nucleated RBC % 0.0 (0.0-0.2) % Sodium 140 (137-145) mmol/L Potassium 3.9 (3.4-5.0) mmol/L Chloride 105 (98-107) mmol/L Carbon Dioxide 27 (22-30) mmol/L Anion Gap 8 (4-12) mmol/L BUN 11 D (7-17) mg/dL Creatinine 1.01 H (0.7-1.0) mg/dL Estim Creat Clear Calc 30 ml/min Estimated GFR 52 L (59 - ) Glucose 102 (65-110) mg/dL Calcium 9.1 (8.4-10.2) mg/dL Total Bilirubin 0.5 (0.2-1.3) mg/dL AST 30 (14-36) U/L ALT 15 (6-35) U/L Alkaline Phosphatase 79 (38-126) U/L Total Protein 7.7 (6.3-8.2) g/dL Albumin 4.4 (3.5-5.1) g/dL Lipase 217 (23-300) U/L Urine Color Yellow (Yellow) Urine Appearance Clear (Clear) Urine pH 6.0 (5.0-9.0) Ur Specific Ruby 1.004 (1.001-1.035) Urine Protein Negative (Negative) mg/dL Urine Glucose (UA) Negative (Negative) mg/dL Urine Ketones Negative (Negative) mg/dL Ur Blood (Man) Negative (Negative) Urine Nitrate Negative (Negative) Urine Bilirubin Negative (Negative) Urine Urobilinogen 0.2 (<2.0) mg/dL Leukocyte Esterase Rfl Negative (Negative) MARYANN/UL Discharge Plan Discharge Clinical Impression: Gastroenteritis Patient Disposition: Home Condition: Stable Instructions: Gastroenteritis (ED) Additional Instructions: Please drink plenty of fluids at home. Return to the emergency department if you develop high fevers, have persistent severe abdominal pain, or have bloody stools or vomit, as these could be signs of a more serious medical emergency. Return to the emergency department if you are unable to keep down liquids because of severe nausea/vomiting. Patient Language: Emirati Prescriptions: No Action pantoprazole 40 mg tablet,delayed release (DR/EC) 40 mg PO DAILY mecobalamin (vitamin B12) 500 mcg tablet,chewable PO cholecalciferol (vitamin D3) 25 mcg (1,000 unit) capsule 25 mcg PO DAILY turmeric root extract 500 mg capsule 500 mg PO DAILY methylprednisolone [Medrol (Jasen)] 4 mg tablets,dose pack See Rx Instructions PO PER PKG DIR Qty: 21 0RF Rx Instructions: PO PER PKG DIR tramadol 50 mg tablet 50 mg PO Q12HR PRN (Reason: break through pain) Qty: 30 0RF aspirin [Adult Low Dose Aspirin] 81 mg Tablet,Delayed Release (Dr/Ec) 81 mg PO DAILY calcium carbonate [Calcium 600] 600 mg calcium (1,500 mg) Tablet 600 mg PO DAILY benazepril 40 mg tablet See Rx Instructions .ROUTE .COMPLEX Qty: 90 3RF Dose Instruction: TAKE 1 TABLET DAILY Rx Instructions: TAKE 1 TABLET DAILY escitalopram oxalate 10 mg tablet See Rx Instructions .ROUTE .COMPLEX Qty: 90 3RF Dose Instruction: TAKE 1 TABLET DAILY Rx Instructions: TAKE 1 TABLET DAILY pravastatin 20 mg tablet See Rx Instructions .ROUTE .COMPLEX Qty: 90 3RF Dose Instruction: TAKE 1 TABLET DAILY Rx Instructions: TAKE 1 TABLET DAILY clopidogrel 75 mg tablet See Rx Instructions .ROUTE .COMPLEX Qty: 90 3RF Dose Instruction: TAKE 1 TABLET DAILY Rx Instructions: TAKE 1 TABLET DAILY clonazepam 0.5 mg tablet 0.5 mg PO BID PRN (Reason: anxiety) Qty: 60 1RF polyethylene glycol 3350 [Miralax] 17 gram Powder In Packet 17 g PO QAM PRN (Reason: Constipation) Qty: 14 0RF Follow-up/Referrals: Nelli Steinberg APRN [Primary Care Provider, Family Practice] - 1 Week
[2025-04-24] MEDS: SODIUM CHLORIDE 0.9% IV 1,000 ML 999 ML IV CONT (13:30)
[2025-04-24 13:41] LABS: Hematocrit 45.0 % (37.0-47.0); Hemoglobin 14.2 g/dL (12.0-15.0); Immature Granulocyte Percent A 0.8 % (0-0.5); Lymphocytes Absolute Auto 1.24 K/mm3 (0.9-3.2); Mean Corpuscular HGB Conc 31.6 g/dl (32-36); Mean Corpuscular Hemoglobin 29.5 pg (26-34); Mean Corpuscular Volume 93.6 fl (80-100); Nucleated Red Blood Cells Absolute Auto 0.000 K/mm3 (0.0-0.012); Nucleated Red Blood Cells Perc 0.0 % (0.0-0.2); Platelet Count Result 212 k/mm3 (150-375); Red Blood Count 4.81 M/mm3 (4.2-5.4); White Blood Count 6.3 K/mm3 (4.5-10.0)
[2025-04-24 13:52] LABS: Alanine Aminotransferase 15 U/L (6-35); Albumin Level 4.4 g/dL (3.5-5.1); Alkaline Phosphatase 79 U/L (38-126); Anion Gap 8 mmol/L (4-12); Aspartate Amino Transferase 30 U/L (14-36); Bilirubin,Total 0.5 mg/dL (0.2-1.3); Blood Urea Nitrogen 11 mg/dL (7-17); Calcium 9.1 mg/dL (8.4-10.2); Carbon Dioxide 27 mmol/L (22-30); Chloride 105 mmol/L (98-107); Estimated CRCL calculation 30 ml/min; Estimated Glomerular Filt Rate 52; Glucose 102 mg/dL (65-110); Lipase 217 U/L (23-300); Potassium 3.9 mmol/L (3.4-5.0); Sodium 140 mmol/L (137-145); Total Protein 7.7 g/dL (6.3-8.2)
[2025-04-24 13:53] LABS: Add Urine Microscopic? NO; Appearance Urine Clear (Clear); Glucose Urine UA Negative (Negative); Leukocyte Esterase Ur Negative LEU/UL (Negative); Nitrate Urine Negative (Negative); Specific Grav Ur 1.004 (1.001-1.035)
== END 2025-04-24 14:46 | disposition home or self-care (01) ==
PROVIDERS: Emergency Provider Emergency Medicine; PCP Nurse Practitioner Adult Health
DX: K52.9 Noninfective gastroenteritis and colitis, unspecified (principal); Z87.891 Personal history of nicotine dependence
CPT/HCPCS: 36415; 80053; 81003; 83690; 85025; 96360; 99283; J7030

== ENCOUNTER 2025-05-28 11:55 | Outpatient (CLI) | payer MEDICARE, SELFPAY ==
--- OUTSIDE RECORDS SUMMARY | 2025-05-28 12:58 | XMS_ITS | Clinical Summary ---
Author Organization [employer] Address [address] [place] [address] Care Team Providers Care Education And Training Coordinator Name Role Phone Nelli Steinberg APRN-ASSISTANT MERCHANDISER Unavailable [phone] Source Comments [facility] [employer],non-owned Affiliates and Associated Physician Practices is amultiple site organization consisting of ambulatory clinics and hospital sitesin [place], [place], [place] and [place]. This disclosure is being madepursuant to the Care Everywhere program and may not contain all information available regarding this patient. 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 Gender Identity Not on file Sexual Orientation Not on file Last Filed Vital Signs Vital Sign Reading Time Taken Comments Blood Pressure 140/90 07/29/2018 11:17 AM CAR MANAGER Pulse 69 07/29/2018 11:17 AM CAR MANAGER Temperature 36.7 C (98.1 F) 07/29/2018 11:17 AM CAR MANAGER Respiratory Rate 16 07/29/2018 11:17 AM CAR MANAGER Oxygen Saturation 99% 07/29/2018 11:17 AM CAR MANAGER Inhaled Oxygen Concentration - - Weight 56.2 kg (124 lb) 07/29/2018 11:17 AM CAR MANAGER Height 160 cm (5' 3) 07/29/2018 11:17 AM CAR MANAGER Body Mass Index 21.97 07/29/2018 11:17 AM CAR MANAGER Plan of Treatment Health Maintenance Due Date [...] age to complete this topic Insurance MEDICARE [facility] MEDICARE Care Teams Education And Training Coordinator Relationship Specialty Start Date End Date Nelli Steinberg APRN-CNP [address] [address] Nurse Practitioner 06/30/17
--- OUTSIDE RECORDS SUMMARY | 2025-05-28 12:58 | XMS_ITS | Clinical Summary ---
Author Organization 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 Based on machine cross-calibration and [...] by the International Society of Clinical Densitometry. [id number] Cathy Del Valle MD IMG DXA PROCEDURES Final Resu lt from Last 3 Months or Most Recently Relevant to Health Maintenance Insurance MEDICARE [facility] MEDICARE [facility] COMMERCIAL GENERIC [employer] INSURANCE [employer] MEDICARE [facility] Member Subscriber Plan / Payer ( fective 2022-Present) Name:Rosanne Hilario Member ID:[id number] Relation to Subscriber:Self Name:Rosanne Hilario Subscriber ID:[id number] Payer ID:[id number] Type:COMMERCIAL Address: [place] [id number] [address] [facility] Care Teams Certified Coatings Inspector Relationship Specialty Start Date End Date Nelli Steinberg NP [address] [place] [address] PCP - General Nurse Practitioner 03/18/24
--- OUTSIDE RECORDS SUMMARY | 2025-05-28 12:58 | XMS_ITS | Clinical Summary ---
Author Organization [facility] [employer] Address [address] [place] [address] Care Team Providers Care Drying Machine Operator Name Role Phone Unavailable Primary [...] Encounters Date Type Department Care Team Description 05/26/2025 External Device Data STL ABSTRACTION Provider, Abstract 03/24/2025 11:00 AM CDT Office Visit [facility] Oncology and Hematology [facility] [address] [place] [address] Brenden Jules MD Chronic anemia (Primary Dx) 03/23/2025 Orders Only [facility] Oncology and Hematology [place] [address] [place] [id number] Brenden Jules MD 03/04/2025 External Device Data [...] Description 12/22/2025 11:30 AM CDT Office Visit [facility] Oncology and Hematology - [place] [address] [facility] [facility] [address] [place] [address] Brenden Jules MD [address] [facility] [address] [place] [address] Health Maintenance Due Date Last [...] Months Insurance MEDICARE PART A AND B [facility] SUPP [facility] SUPP ILENE STALLINGS [id number]
--- OUTSIDE RECORDS SUMMARY | 2025-05-28 12:58 | XMS_ITS | Encounter Summary ---
Author Organization [facility] Address [address] [place] [address] Care Team Providers Care Tube Room Supervisor Name Role Phone Unavailable Primary Care Provider Unavailabl e Encounter Details Date Type Department Care Team (Late st Contact Info) Description 05/26/2025 External Device Data STL ABSTRACTION Provider, Abstract NO ADDRESS ON FILE Social History Tobacco Use Types Packs/Day Years Used Date Smoking Tobacco: Former Cigarettes 0.5 5 0 01/25/1965 - 01/25/1970 Smokeless Tobacco: Never Alcohol Use Standard Drinks/Week Comments Yes 1 (1 standard drink = 0.6 oz pur e alcohol) OCCASSIONLLY Comments No Sex and Gender Information Value Date Recorded Sex Assigned at Not on file Legal Sex Female 10:10 PM CDT Gender Identity Not on file Sexual Orientation Not on file documented as of this encounter Plan of Treatment Upcoming Encounters Date Type Department Care Team (Late st Contact Info) Description 12/22/2025 11:30 AM CDT Office Visit [facility] Oncology and Hematology - [place] [address] [facility] [address] [facility] [address] [place] [address] Brenden Jules MD [address] [facility] [address] [place] [address] documented as of this encounter Visit Diagnoses Not on filedocumented in this encounter
[2025-05-28 19:28] LABS: Alanine Aminotransferase 16 U/L (6-35); Albumin Level 4.5 g/dL (3.5-5.1); Alkaline Phosphatase 76 U/L (38-126); Anion Gap 8 mmol/L (4-12); Aspartate Amino Transferase 57 U/L (14-36); Bilirubin,Total 0.4 mg/dL (0.2-1.3); Blood Urea Nitrogen 19 mg/dL (7-17); Calcium 9.6 mg/dL (8.4-10.2); Carbon Dioxide 29 mmol/L (22-30); Chloride 101 mmol/L (98-107); Cholesterol 205 mg/dL (0-200); Estimated Glomerular Filt Rate 51; Glucose 97 mg/dL (65-110); HDL Direct 61 mg/dL; Potassium 4.3 mmol/L (3.4-5.0); Sodium 138 mmol/L (137-145); Total Protein 7.5 g/dL (6.3-8.2); Triglycerides 134 mg/dL (<150)
== END 2025-05-28 11:56 | disposition home or self-care (01) ==
LOC: ANHBWCLAB 12:03
PROVIDERS: PCP Nurse Practitioner Adult Health; Visit Provider Nurse Practitioner Adult Health
DX: E78.5 Hyperlipidemia, unspecified (principal); E55.9 Vitamin D deficiency, unspecified; N39.0 Urinary tract infection, site not specified
CPT/HCPCS: 36415; 80053; 80061; 82306; 87077; 87086; 87186

== ENCOUNTER 2025-06-15 12:24 | Emergency (ER) | payer MEDICARE, SELFPAY ==
[2025-06-15] VITALS (11 sets, daily range): BP systolic 152–186; BP diastolic 81–104; PULSE 61–90; RESP 13–17; TEMP 36.8–37.3; O2SAT 98–100
--- NOTE | ~2025-06-15 | CT_ITS ---
EXAMINATION: CT scan of abdomen and pelvis with contrast, CT scan of lumbar spine: DATE: 06/15/2025. INDICATION: 84-year-old female with generalized abdominal pain. Back pain. TECHNIQUE: Computed tomography (CT) of the abdomen and pelvis was performed 100 cc of Isovue-370 intravenous contrast. The dose-length product was 259 mGy-cm. CT scan of the lumbar spine was evaluated with multiplanar reconstruction. COMPARISON: Lumbar spine x-ray dated 09/23/2024. FINDINGS: The lung bases do not show any acute findings. Normal size liver and spleen. Multiple benign cysts of the liver measuring 3 cm in size. The gallbladder shows no acute findings. Bile ducts, pancreas and the kidneys are unremarkable. There is no evidence of small bowel obstruction. Appendix is not clearly visualized. Multiple diverticula of the sigmoid colon are noted. No inflammatory changes, mass or fluid collections are seen in the pelvis. Diffuse osteopenia lumbar vertebrae. No acute bony lesions. Significant degenerative disc disease is noted predominantly at L2-3 and L3-4 levels with facet arthropathy causing moderate compromise of neural foramen and lateral recesses. Lesser changes at L4-5 and L5-S1 levels. Sacroiliac arthritis. IMPRESSION: 1. No acute findings in the abdomen and pelvis on CT scan. Diverticulosis of the distal colon. 2. Degenerative disc disease with facet arthropathy predominantly at L2-3 and L3-4 levels. Reviewed, dictated and finalized at location T. LITION CRANE OPERATOR IMPRESSION: 1. No acute findings in the abdomen and pelvis on CT scan. Diverticulosis of th e distal colon. 2. Degenerative disc disease with facet arthropathy predominantly at L2-3 and L 3-4 levels.
[2025-06-15 14:46] LABS: Add Urine Microscopic? NO; Appearance Urine Clear (Clear); Glucose Urine UA Negative (Negative); Leukocyte Esterase Ur Negative LEU/UL (Negative); Nitrate Urine Negative (Negative); Specific Grav Ur 1.006 (1.001-1.035)
[2025-06-15] MEDS: ACETAMINOPHEN 500 MG TABLET 1000 MG PO (17:49)
[2025-06-15 17:58] LABS: Hematocrit 44.0 % (37.0-47.0); Hemoglobin 14.3 g/dL (12.0-15.0); Immature Granulocyte Percent A 0.4 % (0-0.5); Lymphocytes Absolute Auto 1.62 K/mm3 (0.9-3.2); Mean Corpuscular HGB Conc 32.5 g/dl (32-36); Mean Corpuscular Hemoglobin 29.8 pg (26-34); Mean Corpuscular Volume 91.7 fl (80-100); Nucleated Red Blood Cells Absolute Auto 0.000 K/mm3 (0.0-0.012); Nucleated Red Blood Cells Perc 0.0 % (0.0-0.2); Platelet Count Result 196 k/mm3 (150-375); Red Blood Count 4.80 M/mm3 (4.2-5.4); White Blood Count 8.0 K/mm3 (4.5-10.0)
[2025-06-15 18:19] LABS: Alanine Aminotransferase 14 U/L (6-35); Albumin Level 4.4 g/dL (3.5-5.1); Alkaline Phosphatase 74 U/L (38-126); Anion Gap 7 mmol/L (4-12); Aspartate Amino Transferase 25 U/L (14-36); Bilirubin,Total 0.6 mg/dL (0.2-1.3); Blood Urea Nitrogen 13 mg/dL (7-17); Calcium 9.3 mg/dL (8.4-10.2); Carbon Dioxide 26 mmol/L (22-30); Chloride 106 mmol/L (98-107); Estimated CRCL calculation 31 ml/min; Estimated Glomerular Filt Rate 55; Glucose 98 mg/dL (65-110); Potassium 3.9 mmol/L (3.4-5.0); Sodium 139 mmol/L (137-145); Total Protein 7.2 g/dL (6.3-8.2)
[2025-06-15] MEDS: HYDROcodone/acetaminophen (*CRX) 5-325 MG TABLET 1 TAB PO (19:31)
--- NOTE | 2025-06-15 19:33 | ED.GENADULT ---
HPI - General Adult General Chief complaint: Urogenital-Female Stated complaint: back pain, hx of UTI Time Seen by Provider: 06/15/25 17:01 History of Present Illness HPI narrative: 84-year-old female presenting with diffuse lower abdominal pain and lower back pain. Patient reports significant history of osteoarthritis and describes shooting pain down the back of her legs. She has a significant history of UTIs having had 2 the last month. She denies dysuria, hematuria, urinary frequency/urgency, bladder/bowel retention/incontinence, saddle anesthesia, weakness, fevers/chills, nausea/vomiting/diarrhea, chest pain/shortness of breath, or any history of recent trauma. She reports history of TIAs and is on Plavix. Related Data Home Medications ?Medication ?Instructions ?Recorded ?Confirmed ?Last Taken ?Type aspirin 81 mg tablet,delayed 81 mg PO DAILY 04/23/20 05/28/25 04/29/20 History release (Adult Low Dose Aspirin) calcium carbonate (Calcium 600) 600 mg PO DAILY 04/23/20 05/28/25 04/29/20 History cholecalciferol (vitamin D3) 25 25 mcg PO DAILY 11/01/23 05/28/25 Unknown History mcg (1,000 unit) capsule mecobalamin (vitamin B12) 500 mcg mcg PO 11/01/23 05/28/25 Unknown History chewable tablet pantoprazole 40 mg tablet,delayed 40 mg PO DAILY 11/01/23 05/28/25 Unknown History release Allergies Allergy/AdvReac Type Severity Reaction Status Date / Time amoxicillin AdvReac Diarrhea Verified 06/15/25 12:27 Review of Systems Review of Systems: All systems reviewed & are unremarkable except as noted in HPI and below PMFSH Past Medical History Medical History Anxiety Arthritis GERD (gastroesophageal reflux disease) Hyperlipidemia Hypertension IBS (irritable bowel syndrome) Osteoporosis Stroke Surgical History Surgical History No pertinent past surgical history Family History Family History Father Carcinoma of colon Mother Heart disease Daughter Asthma Hypertension Social History Social History Smoking status: Former smoker Alcohol intake: current Drinks per week: 1 Alcohol use details: BEER Substance use: current Substance use type: prescription drug Do You Feel Safe in your Home?: Yes Lack of Transportation: No Lack of Food: Never True Current Housing: I Have Housing Concerned About Future Housing: No Difficulty Paying Gas/Electric Bills: No Difficulty Paying for Meds: No Currently Unemployed: No Education: High School Diploma/GED Difficulty w/ Childcare or Family Care: No Living arrangements: with family Spiritual care concerns: No Exam Narrative: GENERAL: Anxious-appearing, well-nourished, and in no acute distress. HEAD: Normocephalic, atraumatic. EYES: PERRLA and EOMI. ENT: Nares clear, no rhinorrhea or epistaxis. Mucous membranes moist. Oropharynx without tonsillar hypertrophy exudate or other lesions. Bilateral TMs pearly hurst non-bulging NECK: Supple. No adenopathy or masses. No carotid bruits or JVD CHEST: Clear to auscultation. No respiratory distress. No wheezes rales or rhonchi HEART: Regular rate and rhythm. No murmur heard. Normal peripheral pulses. ABDOMEN: Soft, nontender, nondistended, normal active bowel sounds. EXTREMITIES: Normal range of motion. No edema. SKIN: Warm, dry, no rash. NEURO: No focal deficits. Alert and oriented x3. PSYCH: Normal mood and affect Course Vital Signs Vital signs: Vital Signs Temperature 98.2 F 06/15/25 13:13 Pulse Rate 90 06/15/25 13:13 Respiratory Rate 16 06/15/25 13:13 Blood Pressure 185/99 H 06/15/25 13:13 Pulse Oximetry 98 06/15/25 13:13 Oxygen Delivery Room Air 06/15/25 13:13 Temperature 99.2 F 06/15/25 14:58 Pulse Rate 75 06/15/25 19:01 Respiratory Rate 13 06/15/25 19:01 Blood Pressure 163/89 H 06/15/25 19:01 Pulse Oximetry 100 06/15/25 19:01 Oxygen Delivery Room Air 06/15/25 14:53 Medical Decision Making MDM Narrative Medical decision making narrative: 84-year-old female presenting with diffuse lower abdominal pain and lower back pain. Patient reports significant history of osteoarthritis and describes shooting pain down the back of her legs. She has a significant history of UTIs having had 2 the last month. She denies dysuria, hematuria, urinary frequency/urgency, bladder/bowel retention/incontinence, saddle anesthesia, weakness, fevers/chills, nausea/vomiting/diarrhea, chest pain/shortness of breath, or any history of recent trauma. She reports history of TIAs and is on Plavix. Patient's abdomen is soft without significant pain or signs of surgical abdomen on serial exams. 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 Normal neurologic exams. No red flag symptoms. No fever noted and no significant risk factors for osteomyelitis or spinal epidural abscess. No symptoms or signs to suggest pain is referred from abdominal or source. Patient ambulates with a steady gait. Lab and CT evaluations are reviewed and patient is felt to be a reasonable candidate for outpatient management. Administered Tylenol which gave the patient a minimal relief. She reports that she does take Roach at home so administered Roach here which improved patient's symptoms. Patient was instructed as to limitations of CT and laboratory evaluation and encouraged to follow with PCP for further evaluation. Given reasons to return to the ED. Medical Records Medical records reviewed: Yes I reviewed the external patient's medical records. Vital Signs Vital Signs: Vital Signs Temperature 98.2 F 06/15/25 13:13 Pulse Rate 90 06/15/25 13:13 Respiratory Rate 16 06/15/25 13:13 Blood Pressure 185/99 H 06/15/25 13:13 Pulse Oximetry 98 06/15/25 13:13 Oxygen Delivery Room Air 06/15/25 13:13 Temperature 99.2 F 06/15/25 14:58 Pulse Rate 75 06/15/25 19:01 Respiratory Rate 13 06/15/25 19:01 Blood Pressure 163/89 H 06/15/25 19:01 Pulse Oximetry 100 06/15/25 19:01 Oxygen Delivery Room Air 06/15/25 14:53 Lab Data Lab results reviewed: Yes I reviewed the patient's lab results. 06/15/25 17:41 06/15/25 17:41 Labs: Lab Results 06/15/25 06/15/25 Range/Units 14:39 17:41 WBC 8.0 (4.5-10.0) K/mm3 RBC 4.80 (4.2-5.4) M/mm3 Hgb 14.3 (12.0-15.0) g/dL Hct 44.0 (37.0-47.0) % MCV 91.7 (80-100) fl MCH 29.8 (26-34) pg MCHC 32.5 (32-36) g/dl RDW 13.7 (11.5-14.5) % Plt Count 196 (150-375) k/mm3 MPV 10.6 H (7.4-10.4) fl Immature Gran % (Auto) 0.4 (0-0.5) % Neut % (Auto) 70.2 (45.5-73.1) % Lymph % (Auto) 20.4 (18.3-44.2) % [place] % (Auto) 7.0 (2.6-8.5) % Eos % (Auto) 1.4 (0-4.4) % Baso % (Auto) 0.6 (0.2-1.2) % Lymph # (Auto) 1.62 (0.9-3.2) K/mm3 [place] # (Auto) 0.6 (0.1-0.6) K/mm3 Eos # (Auto) 0.1 (0-0.3) K/mm3 Baso # (Auto) 0.1 (0.0-0.1) K/mm3 Abs Immat Gran (auto) 0.03 (0.00-0.031) K/mm3 Absolute Neuts (auto) 5.6 (1.3-6.7) K/mm3 Absolute Nucleated RBC 0.000 (0.0-0.012) K/mm3 Nucleated RBC % 0.0 (0.0-0.2) % Sodium 139 (137-145) mmol/L Potassium 3.9 (3.4-5.0) mmol/L Chloride 106 (98-107) mmol/L Carbon Dioxide 26 (22-30) mmol/L Anion Gap 7 (4-12) mmol/L BUN 13 D (7-17) mg/dL Creatinine 0.97 (0.7-1.0) mg/dL Estim Creat Clear Calc 31 ml/min Estimated GFR 55 L (59 - ) Glucose 98 (65-110) mg/dL Calcium 9.3 (8.4-10.2) mg/dL Total Bilirubin 0.6 (0.2-1.3) mg/dL AST 25 (14-36) U/L ALT 14 (6-35) U/L Alkaline Phosphatase 74 (38-126) U/L Total Protein 7.2 (6.3-8.2) g/dL Albumin 4.4 (3.5-5.1) g/dL Urine Color Yellow (Yellow) Urine Appearance Clear (Clear) Urine pH 7.5 (5.0-9.0) Ur Specific [place] 1.006 (1.001-1.035) Urine Protein Negative (Negative) mg/dL Urine Glucose (UA) Negative (Negative) mg/dL Urine Ketones Negative (Negative) mg/dL Ur Blood (Man) Negative (Negative) Urine Nitrate Negative (Negative) Urine Bilirubin Negative (Negative) Urine Urobilinogen 0.2 (<2.0) mg/dL Leukocyte Esterase Rfl Negative (Negative) MARYANN/UL Imaging Data Attestation: I personally reviewed and interpreted this imaging study as follows: Radiologist's impression: ITS Impressions Miscellaneous CT Procedure 06/15/25 18:42 IMPRESSION: 1. No acute findings in the abdomen and pelvis on CT scan. Diverticulosis of the distal colon. 2. Degenerative disc disease with facet arthropathy predominantly at L2-3 and L3-4 levels. Critical Care Time Critical Care Time Critical Care Time: No Discharge Plan Discharge Clinical Impression: Abdominal pain, Lumbar back pain Patient Disposition: Home Condition: Stable Instructions: Abdominal Pain (ED), Back Pain (ED) Additional Instructions: Return to the emergency department if you experience fever, chest pain, shortness of breath, abdominal pain with nausea and vomiting, weakness, numbness/tingling, or any other symptoms that are concerning to you. Take pain medicine as prescribed. Follow up with primary care doctor Patient Language: Vietnamese Prescriptions: No Action pantoprazole 40 mg tablet,delayed release (DR/EC) 40 mg PO DAILY mecobalamin (vitamin B12) 500 mcg tablet,chewable PO cholecalciferol (vitamin D3) 25 mcg (1,000 unit) capsule 25 mcg PO DAILY escitalopram oxalate [Lexapro] 20 mg tablet 20 mg PO DAILY Qty: 90 3RF hydrocodone-acetaminophen 5-325 mg tablet 1 tablet PO Q8H PRN (Reason: pain (scale score 7-10)) Qty: 30 0RF aspirin [Adult Low Dose Aspirin] 81 mg Tablet,Delayed Release (Dr/Ec) 81 mg PO DAILY calcium carbonate [Calcium 600] 600 mg calcium (1,500 mg) Tablet 600 mg PO DAILY benazepril 40 mg tablet See Rx Instructions .ROUTE .COMPLEX Qty: 90 3RF Dose Instruction: TAKE 1 TABLET DAILY Rx Instructions: TAKE 1 TABLET DAILY pravastatin 20 mg tablet See Rx Instructions .ROUTE .COMPLEX Qty: 90 3RF Dose Instruction: TAKE 1 TABLET DAILY Rx Instructions: TAKE 1 TABLET DAILY clopidogrel 75 mg tablet See Rx Instructions .ROUTE .COMPLEX Qty: 90 3RF Dose Instruction: TAKE 1 TABLET DAILY Rx Instructions: TAKE 1 TABLET DAILY clonazepam 0.5 mg tablet 0.5 mg PO BID PRN (Reason: anxiety) Qty: 60 1RF polyethylene glycol 3350 [Miralax] 17 gram Powder In Packet 17 g PO QAM PRN (Reason: Constipation) Qty: 14 0RF Follow-up/Referrals: Nelli Steinberg APRN [Primary Care Provider, Family Practice]
--- OUTSIDE RECORDS SUMMARY | 2025-06-16 02:00 | XMS_ITS | Clinical Summary ---
Author Organization [facility] Rena Aguilar Address [address] [place] [address] Care Team Providers Care Delivery Clerk Name Role Phone Unavailable Primary Care Provider [...] Abstract 03/24/2025 11:00 AM CDT Office Visit [facility] Hematology [facility] [address] [place] [id number] Brenden Jules MD Chronic anemia (Primary Dx) 03/23/2025 Orders Only [facility] [address] [place] [id number] Brenden Jules MD from Last 3 Months Family History [...] Description 12/22/2025 11:30 AM CDT Office Visit [facility] Hematology - [place] [address] [facility] [address] [place] [address] Brenden Jules MD [address] [facility] [address] [place] [address] Health Maintenance Due Date Last [...] Months Insurance MEDICARE PART A AND B [facility] SUPP [facility] SUPP [place] [id number]
--- OUTSIDE RECORDS SUMMARY | 2025-06-16 02:01 | XMS_ITS | Clinical Summary ---
Author Organization [facility] Address [address] [place] [address] Care Team Providers Care Manager Of Medical Name Role Phone Nelli Steinberg APRN-CLOTH TRIMMER HAND Unavailable [phone] Source Comments [facility],non-owned Affiliates and Associated Physician Practices is amultiple site organization consisting of ambulatory clinics and hospital sitesin [place], [place], [place] and [place]. This disclosure is being madepursuant to the Care Everywhere program and may not contain all information available regarding this patient. 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 Gender Identity Not on file Sexual Orientation Not on file Last Filed Vital Signs Vital Sign Reading Time Taken Comments Blood Pressure 140/90 07/29/2018 11:17 AM CANNERY WORKER Pulse 69 07/29/2018 11:17 AM CANNERY WORKER Temperature 36.7 C (98.1 F) 07/29/2018 11:17 AM CANNERY WORKER Respiratory Rate 16 07/29/2018 11:17 AM CANNERY WORKER Oxygen Saturation 99% 07/29/2018 11:17 AM CANNERY WORKER Inhaled Oxygen Concentration - - Weight 56.2 kg (124 lb) 07/29/2018 11:17 AM CANNERY WORKER Height 160 cm (5' 3) 07/29/2018 11:17 AM CANNERY WORKER Body Mass Index 21.97 07/29/2018 11:17 AM CANNERY WORKER Plan of Treatment Health Maintenance Due Date Last Done Comments BONE DENSITY TESTING 1942 DTAP/TDAP/TD VACCINES (1 - Tdap) 1961 PNEUMOCOCCAL VACCINE 50+ (1 of 1 - PCV) 1992 ZOSTER VACCINE (1 of 2) 1992 Respiratory Syncytial Virus (RSV) Vaccine Pt: or over 60 yrs (1 - 1-dose 75+ series) 2017 DEPRESSION SCREENING 07/30/2024 COVID-19 VACCINE ( - 2024-2 6 season) 2025 INFLUENZA VACCINE (#1) 2025 HEPATITIS [...] age to complete this topic Insurance MEDICARE [facility] MEDICARE Care Teams Manager Of Medical Relationship Specialty Start Date End Date Nelli Steinberg APRN-CNP [address] [address] Nurse Practitioner 06/30/17
--- OUTSIDE RECORDS SUMMARY | 2025-06-16 02:01 | XMS_ITS | Clinical Summary ---
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 Based on machine cross-calibration and [...] by the International Society of Clinical Densitometry. [id number] Cathy Del Valle MD IMG DXA PROCEDURES Final Resu lt from Last 3 Months or Most Recently Relevant to Health Maintenance Insurance MEDICARE [facility] MEDICARE [facility]ER[facility] GENERIC [employer] INS[employer]ANCE [employer] MEDICARE [employer] Care Teams Refinery Superintendent Relationship Specialty Start Date End Date Nelli Steinberg NP [address] [place] [address] PCP - General Nurse Practitioner 03/18/24
== END 2025-06-15 19:43 | disposition home or self-care (01) ==
PROVIDERS: Emergency Medicine; PCP Nurse Practitioner Adult Health
DX: R10.30 Lower abdominal pain, unspecified (principal); M54.50 Low back pain, unspecified; I10 Essential (primary) hypertension; E78.5 Hyperlipidemia, unspecified; K58.9 Irritable bowel syndrome, unspecified; K21.9 Gastro-esophageal reflux disease without esophagitis; M81.0 Age-related osteoporosis without current pathological fracture; F41.9 Anxiety disorder, unspecified; Z86.73 Personal history of transient ischemic attack (TIA), and cerebral infarction without residual deficits; Z87.891 Personal history of nicotine dependence; Z79.899 Other long term (current) drug therapy; Z79.02 Long term (current) use of antithrombotics/antiplatelets; M51.369 Other intervertebral disc degeneration, lumbar region without mention of lumbar back pain or lower extremity pain
CPT/HCPCS: 36415; 72132; 74177; 80053; 81003; 85025; 99284; A9270; Q9967

== ENCOUNTER 2025-07-02 11:45 | Outpatient (CLI) | payer MEDICARE, SELFPAY ==
[2025-07-02 18:16] LABS: Add Urine Microscopic? NO; Appearance Urine Clear (Clear); Glucose Urine UA Negative (Negative); Leukocyte Esterase Ur Negative LEU/UL (Negative); Nitrate Urine Negative (Negative); Specific Grav Ur 1.005 (1.001-1.035)
== END 2025-07-02 11:46 | disposition home or self-care (01) ==
PROVIDERS: PCP Nurse Practitioner Adult Health; Visit Provider Nurse Practitioner Adult Health
DX: R39.9 Unspecified symptoms and signs involving the genitourinary system (principal); Z87.440 Personal history of urinary (tract) infections
CPT/HCPCS: 81003; 87086